=== PATIENT | female | born 1950 | race Caucasian/White ===

== ENCOUNTER → 2018-03-19 22:10 | Outpatient (CLI) | payer MEDICARE, SELFPAY ==
[2018-03-19 19:40] VITALS: BMI 24.7
[2018-03-19 22:50] LABS: Thyroid Stim Hormone (TSH) 1.57 uIU/mL (0.358-3.74)
--- OUTSIDE RECORDS SUMMARY | 2018-05-14 23:53 | XMS RPT_ITS ---
:1950 Author Organization [facility] Care Team Providers Name Role Phone ANDREW, CHELSEA Referring Unavailable LINNEAN, TAM (PT) Attending Unavailable ANDREW, CHELSEA Referring Unavailable LINNEAN, TAM (PT) Attending Unavailable ANDREW, CHELSEA Referring Unavailable LINNEAN, TAM (PT) Attending Unavailable ANDREW, CHELSEA Referring Unavailable LINNEAN, TAM (PT) Attending Unavailable ANDREW, CHELSEA Referring Unavailable LINNEAN, TAM (PT) Attending Unavailable ANDREW, CHELSEA Referring Unavailable LINNEAN, TAM (PT) Attending Unavailable ANDREW, CHELSEA Referring Unavailable LINNEAN, TAM (PT) Attending Unavailable ANDREW, CHELSEA Referring Unavailable LINNEAN, TAM (PT) Attending Unavailable ANDREW, CHELSEA Referring Unavailable LINNEAN, TAM (PT) Attending Unavailable ANDREW, CHELSEA Referring Unavailable LINNEAN, TAM (PT) Attending Unavailable ANDREW, CHELSEA Referring Unavailable LINNEAN, TAM (PT) Attending Unavailable ANDREW, CHELSEA Referring Unavailable LINNEAN, TAM (PT) Attending Unavailable ANDREW, CHELSEA Referring Unavailable ANDREW, CHELSEA Referring Unavailable ANDREW, CHELSEA Attending Unavailable LUNDBERG, DM L Referring Unavailable ANDREW, CHELSEA Referring Unavailable ANDREW, CHELSEA Attending Unavailable LUNDBERG, DM L Referring Unavailable ANDREW, CHELSEA Referring Unavailable Lundberg, Dm ASSOCIATE DATA SCIENTIST-C Attending Unavailable Lundberg, Dm ASSOCIATE DATA SCIENTIST-C Referring Unavailable PROBLEMS PROBLEMS DATE TYPE CONDITION / CODE ATTENDING STATUS SOURCE 03/20/2018 Unknown E03.9 - Lundberg, Active Sweetie Hypothyroidism, Dm ASSOCIATE DATA SCIENTIST-C Community unspecified / Hospital E03.9(ICD-10) Repository 02/17/2018 Active Elevated C-reactive NA Active [facility] protein (CRP) / [facility] [place] R79.82(ICD-10) Repository 10/21/2017 Active Abnormal results of NA Active [facility] liver function [facility] [place] studies / Repository R94.5(ICD-10) 09/17/2017 Active Unknown / LINNEAN, Active [facility] UNK(Unknown) TAM (PT) Other [place] Repository 09/09/2017 Active Pain in left NA Active [facility] shoulder / Other [place] M25.512(ICD-10) Repository 09/09/2017 Active Other chronic pain NA Active [facility] / G89.29(ICD-10) Other [place] Repository 12/08/2015 Active Vitamin D NA Active [facility] deficiency, [facility] [place] unspecified / Repository E55.9(ICD-10) 07/30/2017 Active Other specified NA Active [facility] abnormal findings [facility] [place] of blood chemistry Repository / R79.89(ICD-10) 07/30/2017 Active Anemia in other NA Active [facility] chronic diseases [facility] [place] classified Repository elsewhere / D63.8(ICD-10) 07/30/2017 Active Elevated NA Active [facility] erythrocyte [facility] [place] sedimentation rate Repository / R70.0(ICD-10) 07/30/2017 Active Encounter for NA Active [facility] screening for [facility] [place] respiratory Repository tuberculosis / Z11.1(ICD-10) PROCEDURES PROCEDURES No Procedure Records FoundRESULTS RESULTS THYROID STIM HORMONE Collected: 03/19/2018 Status: F Source: [facility] (TSH) 8:12 PM [facility] REPOSITORY TYPE CODE TESTS RESULT OUT OF RANGE REFERENCE UNITS LAB L501.9520 0.358-3.74 uIU/mL Normal TSH 1.57 Performed By: #### [id number] #### [facility] [address] [place], [address] OFFICE VISIT Observed: 03/19/2018 Status: F Source: [facility] 8:11 PM [facility] REPOSITORY [facility] [address] [place] [address] OFFICE VISIT Date of Service: 03/19/18 MR#: [id number] Acct: [id number] Name: ROSALBA ELIZABETH Rep #: [id number] : 1950 Provider: ANA ROSA Lundberg Age/Sex: 68/F Location: [facility] Status: Signed Intake Vital Signs03/19/18 Height 5 ft 6 in 03/19/18 Weight: 153 lb Intake Visit Reasons: RX REFILL Accompanied by: Self Is patient in pain?: No Allergies No Known Allergies Allergy (Unverified 03/19/18 19:41) Medications adalimumab 40 mg/0.8 mL subcutaneous pen kit 40 mg SC Q2W 03/19/18 [History Confirmed 03/19/18] ergocalciferol (vitamin D2) 50,000 unit capsule 50,000 unit PO .tidweek cap 03/19/18 [History Confirmed 03/19/18] folic acid 1 mg tablet 1 mg PO DAILY 03/19/18 [History Confirmed 03/19/18] ibuprofen 200 mg tablet 200 mg PO BID PRN tab 03/19/18 [History Confirmed 03/19/18] levothyroxine 112 mcg tablet 112 mcg PO DAILY 03/19/18 [History Confirmed 03/19/18] methotrexate sodium 2.5 mg tablet 2.5 mg PO .q1w tab 03/19/18 [History Confirmed 03/19/18] Is last menstrual period known: Yes Post menopausal: Yes Patient : No PFSH Medical History Fx wrist (Acute) Hypothyroid (Acute) Osteoarthritis (Acute) Rheumatoid arthritis (Acute) Social History Smoking Status: Never smoker HPI HPI (General) HPI HPI: ROSALBA ELIZABETH, is a 68 F who presents to the office today for refill medication. ROS Const Constitutional: No anorexia, body ache, chills, excessive sweating, fatigue, fever(s), frequent falls, headache(s), decreased energy, malaise, night sweats, snoring, weakness, weight change, sleep problems, abnormal sleep pattern, change in appetite or other Eyes Eyes: No blurry vision, change in vision, double vision, discharge, dry eyes, bulging eyes, floaters, visual disturbances, eye pain, light sensitivity, spots in vision, tunnel vision or other ENT ENT: No headache(s), abnormal hearing, ear pain, ear discharge, ear pressure, hearing loss, tinnitus, dizziness/vertigo, balance problems, nosebleed/epistaxis, nasal congestion, nasal obstruction, nose pain, sinus pressure, sinus pain, nasal discharge, post nasal drip, facial pain, dental pain, dry mouth, difficulty swallowing, bad breath, hoarseness, lip swelling, mouth lesions, mouth pain, neck pain, sore throat, tongue swelling, throat swelling or other Resp Respiratory: No snoring, cough, change in phlegm color, chest congestion, excessive phlegm production, hemoptysis, pain on inspiration, shortness of breath, pain with cough, stridor, wheezing or other Cardio Cardiology: No excessive sweating, chest pain at rest, chest pain with exertion, leg pain with exertion, shortness of breath, dyspnea on exertion, generalized swelling, irregular heart rhythm, lightheadedness, orthopnea, radiating jaw, neck or arm pain, fast heart rate, slow heart rate, palpitations or other Gastro GI: No other, No Difficulty Swallowing, No abdominal pain, No belching, No bloating, No change in bowel habits, No change in stool character, No coffee ground emesis, No constipation, No cramping, No diarrhea, No heartburn, No feeling full early, No excessive flatus, No incontinent of stools, No Vomiting blood/hematemesis, No Blood in stool, No loose stools, No Black,tarry stools, No nausea/dyspepsia, No pain with swallowing, No vomiting, No hemorrhoids, No rectal pain Genitourinary: No urinary frequency, difficulty urinating, burning urination, painful urination, urinary urgency or blood in urine Musc Musculoskeletal: No neck pain, abnormal walking, joint pain, back pain, deformity, joint swelling, limited range of motion, loss of height, muscle cramps, muscle weakness, decreased muscle mass, body aches, numbness, radiating pain into limb, stiffness, tingling or other Skin Skin: No acne, hair loss, change in hair, nail changes, boil, change in skin color, dry skin, redness, excessive hair growth, yellowing of the skin, lesions, itching, rash, skin pain, skin ulcer, sores, skin swelling, wounds or other Breast Breast: No other Neuro Neurology: No frequent falls, headache(s), weakness, visual disturbances, abnormal hearing, abnormal walking, numbness, tingling, abnormal movements, abnormal speech, behavioral changes, confusion, unsteady gait/balance, dizziness, lack of coordination, loss of vision, memory loss, restless legs, fainting, tremor(s) or other Psych Psychiatric: No abnormal sleep pattern, No change in appetite, No behavioral changes, No confusion, No memory loss, No lack of enjoyment, No anxiety, No depression, No difficulty concentrating, No hopelessness, No irritability, No mood swings, No panic attacks, No paranoia, No Thoughts of harming yourself/Others, No hallucinations, No other Endo Endo: No excessive sweating, No fatigue, No other Aller/Imm Allergy/Immunologic: No lip swelling, tongue swelling, throat swelling, wheezing or itchy eyes Exam Const Constitutional: Yes cooperative, Yes healthy appearing Orientation: Yes alert, awake and oriented x3 HENMT Head: Yes normocephalic Ear: Yes hearing grossly normal bilaterally Neck Neck: normal visual inspection Thyroid: thyroid normal Eyes General: Yes appearance normal, both eyes and all related structures Chest Chest palpation AND inspection: Yes normal inspection of the chest Resp Effort AND Inspection: No stridor Auscultation: Yes clear to auscultation bilaterally Cardio Palpitation: Yes normal PMI Rate: Yes regular rate Rhythm: Yes regular rhythm GI Inspection: Yes normal to inspection Auscultation: Yes normal bowel sounds Rectal Exam: No hemorrhoids Musc Cervical Spine: Yes cervical ROM normal Thoracic/Lumbar Spine: Yes thoracic and lumbar spine normal to inspection Skin General: no rashes or lesions noted Lesions: Yes no lesions Extrem General: Yes normal to inspection Neuro General: Yes alert and oriented x3 Motor: No weakness Psych Appearance: Positive grossly normal Mood: Positive congruent mood Affect: Positive normal affect Assessment AND Plan Problems 1. Hypothyroidism (acquired) E03.9 2. Rheumatoid arthritis involving multiple sites with positive rheumatoid factor M05.79 3. Rheumatoid arthritis flare M06.9 Patient Instructions Will call with the results of the labs drawn today and will fax to [facility] Orders Orders: Medications New: Discontinued: triamcinolone acetonide 0.1% Discontinued Reason: Pt no longer1 applic Topical DAILY taking Coding Level of Care Code Off vis,est,level 3 Diagnoses Hypothyroidism (acquired) E03.9 Rheumatoid arthritis involving multiple sites with positive rheumatoid factor M05.79 Rheumatoid arthritis location: multiple sites Rheumatoid factor presence: with rheumatoid factor Rheumatoid arthritis flare M06.9 03/19/182010 <Electronically signed by Dm VALENTINE> Date Dm Langstonson ASSOCIATE DATA SCIENTIST-C CC: CBC Collected: 02/17/2018 Status: F Source: [place] 2:37 PM [facility] REPOSITORY TYPE CODE TESTS RESULT OUT OF REFERENCE UNITS RANGE LAB WBC 3.70-11.00 k/uL WBC 6.69 LAB RBC 3.90-5.20 m/uL RBC 3.95 LAB HGB 11.5-15.5 g/dL Hemoglobin 13.0 LAB HCT 36.0-46.0 % Hematocrit 39.5 LAB MCV 80.0-100.0 fL MCV 100.0 LAB MCH 26.0-34.0 pG MCH 32.9 LAB MCHC 30.5-36.0 g/dL MCHC 32.9 LAB RDWCV 11.5-15.0 % RDW-CV 12.9 LAB PLTCT 150-400 k/uL Platelet Count 315 LAB MPV 9.0-12.7 fL MPV 9.7 LAB ABSNUC <0.01 k/uL Absolute nRBC <0.01 Performed By: #### WSR, CRP, VITD #### [facility] [address] [place] [address] COMP METABOLIC PANEL Collected: 02/17/2018 Status: F Source: [place] 2:37 [facility] REPOSITORY TYPE CODE TESTS RESULT OUT OF REFERENCE UNITS RANGE LAB TP 6.3-8.0 g/dL Protein, Total 7.3 LAB ALB 3.9-4.9 g/dL Albumin 4.2 LAB CA 8.6-10.0 mg/dL Calcium, Total 9.2 LAB TBIL 0.2-1.3 mg/dL Bilirubin, Total 0.3 LAB ALKP 34-123 U/L Alkaline Phosphatase 76 LAB AST 13-35 U/L AST 18 LAB GLU 74-99 mg/dL Glucose 87 Result Comment: The [place] Diabetes Association (ADA) provides guidance for cutoff values for fasting glucose and random glucose. The ADA defines fasting as no caloric intake for at least 8 hours. Fas ting plasma glucose results between 100 to 125 mg/dL indicate increased risk for diabetes (prediabetes). Fasting plasma glucose results greater than or equal to 126 mg/dL meet the criteria for diagnosis of diabetes. In the absence of unequivocal hyperglycemia, results should be confirmed by repeat testing. In a patient with classic symptoms of hyperglycemia or hyperglycemic crisis, random plasma glucose results greater than or equal to 200 mg/dL meet the criteria for diagnosis of diabetes. Reference: Standards of Medical Care in Diabetes 2016, [place] Diabetes Association. Diabetes Care. 2016.39(Suppl 1). LAB BUN 7-21 mg/dL BUN 15 LAB CRET 0.58-0.96 mg/dL Creatinine 0.76 LAB NA 136-144 mmol/L Sodium 140 LAB K 3.7-5.1 mmol/L Potassium 4.2 LAB CL 97-105 mmol/L Chloride 100 LAB CO2 22-30 mmol/L CO2 28 LAB AGAP 9-18 mmol/L Anion Gap 12 LAB ALT 7-38 U/L ALT 14 LAB GFRAA eGFR- Amer. >60 LAB GFRNAA . eGFR-All Other Races >60 Result Comment: eGFR (Estimated GFR) Units of measure: mL/min/1.73 meters squared eGFR is derived from the reexpressed MDRD Study equation using the following parameters: serum creatinine, age, gender and race. The creatinine assay has been calibrated to be traceable to IDMS. An eGFR <60 mL/min/1.73m2 for >3 months is consistent with chronic kidney disease. Refer to KDOQI guidelines for clinical interpretation. In patients with unstable renal function, e.g. those with acute kidney injury, the eGFR may not accurately reflect actual GFR. Performed By: #### WSR, CRP, VITD #### [facility] [employer] [address] [place] [address] SED RATE WESTERGREN Collected: 02/17/2018 Status: F Source: [place] 2:37 PM [facility] REPOSITORY TYPE CODE TESTS RESULT OUT OF REFERENCE UNITS RANGE LAB WSR 0-20 mm/hr Sed Rate Westergren 8 Performed By: #### WSR, CRP, VITD #### [facility] [employer] [address] [place] [id number] C-REACTIVE PROTEIN Collected: 02/17/2018 Status: F Source: [place] 2:37 PM [facility] REPOSITORY TYPE CODE TESTS RESULT OUT OF REFERENCE UNITS RANGE LAB CRP <0.9 mg/dL C-Reactive <0.1 Protein Performed By: #### WSR, CRP, VITD #### [facility] [employer] [address] [place], [place] [address] VITAMIN D 25 HYDROXY Collected: 02/17/2018 Status: F Source: [place] 2:37 PM [facility] REPOSITORY TYPE CODE TESTS RESULT OUT OF REFERENCE UNITS RANGE LAB VITD 31.0-80.0 ng/mL Vitamin D 25 46.3 Hydroxy Result Comment: Classification of 25 [place] Vitamin D status: Insufficiency/Moderate Deficiency: < or = 30 ng/mL Sufficiency/Optimal Levels: 31 to 80 ng/mL Toxicity: > 100 ng/mL Test performed by chemiluminescent immunoassay. Performed By: #### WSR, CRP, VITD #### [facility] [employer] [address] [place], [place] [address] PROGRESS Observed: 02/17/2018 Status: COMPLETED Source: [place] 1:30 PM [facility] REPOSITORY HNO ID: [id number] Author: Chelsea Morales Service: (none) Author Type: Physician Type: Progress Notes Filed: 02/17/2018 2:27 PM Note Text: CC:psoriasiatic arthritis/joint pain/low vitamin D Today's visit 02/17/18:L upper arm soreness. Face broke out in redness/irritation after using cetaphil soap and cream 1month ago. Now with R nasal skin irritation, R eye weepy, irritated. Has not missed rheum meds. [facility]. No steroids since last office visit. R great toenail dystrophic unimproved with vicks rub, was on multiple fungal meds. Reports pain /10. Minimal AM stiffness. Already had flu vaccine. Due for prevnar 13 next month. Overall mildly uncomfortable but happy with rheum care. No falls/fx/trauma/illness/oral sores/rash/hairloss/jaw pain/dysphagia/epistaxis/hemoptysis since last visit. No adverse effects with meds. No other complaints. Patient denies fever, chills, cp, dyspnea, nausea, vomiting, night sweats, scalp tenderness, visual changes, barrera, bowel/bladder changes, weight changes or other complaints. Last visit supportive care, start prednisone marko, consult PT, no response with otezla/too costly, f/u ENT, f/u with derm care, improved methotrexate 9-10tabs once a week (may increase if labs stable), daily folic acid, improved with humira 40mg sq injection once every other week, increase water intake, take vit D 4000 International Units daily with food, f/u with derm, prn heat/ice/otc arthritis creams, low impact weightbearing exercise, follow up with dentist for dental care 09/09/17:Patient report flare of scalp. had bronchitis 05/2017 treated with augmentin. Another cold 1month afterwards. Croupy cough and family with same illness. Mother on mother's day. L shoulder pain lately. Worse when trying to reach out for object with LUE. Reports pain 9/10. Minimal AM stiffness. Back on rheum meds. Neck pain better since last office visit, but occasionally bothers her. Overall uncomfortable but happy with rheum care. Seeing dentist, worse dental health since on methotrexate per patient. Will lose tooth on bottom and may need an implant. No falls/fx/trauma/illness/oral sores/rash/hairloss/jaw pain/dysphagia/epistaxis/hemoptysis since last visit. No adverse effects with meds. No other complaints. Patient denies fever, chills, cp, dyspnea, nausea, vomiting, night sweats, scalp tenderness, visual changes, barrera, bowel/bladder changes, weight changes or other complaints. Last visit supportive care, no response with otezla/too costly, f/u ENT, f/u with derm care, improved methotrexate 8tabs once a week (may increase if labs stable), daily folic acid, improved with humira 40mg sq injection once every other week, increase water intake, take vit D 4000 International Units daily with food, f/u with derm, prn heat/ice/otc arthritis creams, low impact weightbearing exercise, 11/11/16;reports psoriasis on back of scalp. None elsewhere. Started humira 06/2016. Up to 8tabs once a week methotrexate. No more fungal infection. Joint pain in knees just like mother. Pain 9/10. Minimal AM stiffness. Likes to Nextt, but not yet this year. overall mildly uncomfortable but happy with rheum care. No falls/fx/trauma/illness/oral sores/rash/hairloss/jaw pain/dysphagia/epistaxis/hemoptysis since last visit. No adverse effects with meds. No other complaints. Patient denies fever, chills, cp, dyspnea, nausea, vomiting, night sweats, scalp tenderness, visual changes, barrera, bowel/bladder changes, weight changes or other complaints. Last visit supportive care, no response with otezla/too costly, f/u ENT, f/u with derm care, restart methotrexate 4-8tabs once a week, start daily folic acid, increase water intake, take vit D 4000 International Units daily with food, start biologics if approved, prn heat/ice/otc arthritis creams, low impact weightbearing exercise 07/01/16:reports left side of neck, right knee, right hand/middle finger, 07/29. Moderate AM stiffness. Fungal infection resolved with oral antifungal 02/2016. Did fine with otezla sample marko, too costly. Improved elbow psoriasis. Still has psoriasis on scalp, eyebrows, face. Did well with methotrexate in past but had more joint pain all over since off methotrexate. Does enjoy occasional alcoholic drinks. Declined tablet survey. Overall uncomfortable but happy with rheum care. No falls/fx/trauma/illness/oral sores/rash/hairloss/jaw pain/dysphagia/epistaxis/hemoptysis since last visit. No adverse effects with meds. No other complaints. Patient denies fever, chills, cp, dyspnea, nausea, vomiting, night sweats, scalp tenderness, visual changes, barrera, bowel/bladder changes, weight changes or other complaints. Last visit supportive care, start otezla, f/u ENT, complete fungal treatment and topicals per derm care, when infection free and labs stable may restart methotrexate/folic acid, increase water intake, take vit D 4000 International Units daily with food, may consider other dmards/biologics, prn heat/ice/otc arthritis creams, low impact weightbearing exercise 02/02/16:was off rheum meds for fungal infection. Not on rheum meds since fungal infection on trunk still present. Using topicals, may try oral antifungal in future. reports left side-neck 09/28 x 6 weeks, constant. Minimal AM stiffness. Psoriasis greatly flared on scalp. Taking heat/ibuprofen not helping. More shoulder pain. Had not problems taking 6tabs once a week of methotrexate in the past. Overall doing ok and happy with care. No falls/fx/trauma/illness/oral sores/rash/hairloss/jaw pain/dysphagia/epistaxis/hemoptysis since last visit. No adverse effects with meds. No other complaints. Patient denies fever, chills, cp, dyspnea, nausea, vomiting, night sweats, scalp tenderness, visual changes, barrera, bowel/bladder changes, weight changes or other complaints. Last visit supportive care, consult ENT, complete fungal treatment and topicals per derm care, when infection free and labs stable may restart methotrexate/folic acid, increase water intake, complete vit D script, may consider other dmards/biologics, prn heat/ice/otc arthritis creams, low impact weightbearing exercise See notes 09/09/17-12/08/15 for details on prior visits humira 06/2016-present Methotrexate 10/2015-present 12/08/15:started methotrexate 5tabs once a week. less itchy scalp. Reports c/o earache, pressure in left ear X 3 weeks. C/o stiff neck to left side Itching to scalp. Was on zpak for L earache without response. Pain deep behind L ear. No change with warm compresses. Fungal rash below breasts the same. Due to see Derm soon. Drinking some water. Psoriasis stable. Same joint pain. Pain 1-2/10. Minimal Am stiffness. Overall doing ok and happy with care. No falls/fx/trauma/illness/oral sores/rash/hairloss/jaw pain/dysphagia/epistaxis/hemoptysis since last visit. No adverse effects with meds. No other complaints. Patient denies fever, chills, cp, dyspnea, nausea, vomiting, night sweats, scalp tenderness, visual changes, barrera, bowel/bladder changes, weight changes or other complaints. Last visit supportive care, complete fungal treatment and topicals per derm care, when infection free and labs stable may start methotrexate/folic acid, may consider other dmards/biologics, prn heat/ice/otc arthritis creams, low impact weightbearing exercise, 11/01/15 HPI: here for psoriasis eval 19y/o started psoriasis on ankled, then traveled to tibial areas, elbows A few years quiet Psoriasis worse on scalp since 2001, after divorce 51y/o found to have thyroid disease, now on med bilateral shoulders when mobile 08/04 for 1year 09/19/15 note Shant Patel MD note: scalp psoriasis, R breast candidiasis;refer to rheum for eval of arthritsi and biological med. RHEUM. ROS: Joint pain: yes- shoulders, knees, muscle spasms, neck Joint swelling: hands swelling when high sodium Am stiffness: yes 1.5hr H/o precedent/frequent infection(s): topical antifungal Skin thickening, psoriasis, photosensitivity, purpura: psoriasis as above Nail changes:great toenail dystrophic Eye inflammation: glasses Oral/nasal/genital ulcers: canker sore with diet changes GI problems-diarrhea/bleeding/IBD/Gluten intolerence/Dysphagia: gerd Fatigue: yes, sleeps 7=8hr/night, yes snoring, KATARINA no machine PMR/GCA ROS: negative Other ROS:The remainder of the review of systems is negative. PMH/surgery hx/social hx/fmh/ALLERGIES:unchanged from last visit;ALLERGIES:nkda PMH:thyroid disease, KATARINA no machine, gerd, fell skating R wrist fracture [facility] 2003 ;Miscarriages: No Mammogram/Breast exam: NL Pap smear: NL;last menses 52y/o;not on ocps/hormones Colonoscopy: no Bone Density:no History of Fractures:fell skating R wrist fracture [facility] 2003 Height Loss: lost 2 Last PPD: +PPD from traveling/[place] treated for 9months in 1971;11/01/15 AND 07/01/16 negative quantiferon tb PSH:none MEDS:reviewed medlist 02/17/18 Calcium no Vitamin D:4000 International Units daily with food job home health nurse Smoking <1/2ppd [id number];quit 1979 etoh wine once-twice a week Industrial toxic exposures:no FAMILY HISTORY:mother-psoriasis, arthritis;father-on prednisone for lung issues;sisters=healthy;niece psoriasis;daughter-psoriasis; Patient reports no known FH of Gout or Pseudogout, , Psoriatic Arthritis, IBD, RA, Lupus, Myositis, Osteoporosis, MS, Cancer, Kidney Stones, TB infection exposed or Vasculitis TESTS:10/21/17 normal cbc, esr 9, crp 0.1, vitamin D 55.6;pending cmp; 5/22/18 L shoulder xrays-There is mild to moderate narrowing acromioclavicular joint with hypertrophic changes. ?Minimal narrowing of the glenohumeral joint with inferior osteophytes. ?Subacromial space is normal. 07/30/17 low vitamin D 17.1;NL cbc, cmp, esr 7, crp 0.1;03/24/17 NL cbc, cmp, esr 8, crp 0.1; 11/11/16 NL cbc, cmp, esr 8 (10), crp<0.1 (0.2);07/01/16 NL cbc, cmp, esr 10 (14),, crp 0.2 (0.1);negative quantiferon tb; 02/02/16 cervical spine xrays-Moderate degenerative disc disease at C4-5, C5-6 and C6-7 with disc height narrowing and uncovertebral hypertrophic changes. Moderate to marked narrowing of the left C5-6 neural foramen and right C3-4, C4-5 and C5-6 neural foramina. Moderate narrowing of the right C6-7 neural foramen as well 12/08/15 NL cbc, cmp;11/01/15 normal shoulder xrays 11/01/15 +hla b27;low vit D 22.4;NL cbc, cmp, crp 0.1, esr 14;negative rf<10, ccp<15, heather ifa, quantiferon tb, hepatitis panel except +hepBsurface AB These results are consistent with previous exposure and/or immunity to the hepatitis B virus antigen. 11/01/15 knee xrays-Right knee: There is no acute fracture. There is mild patellofemoral compartment narrowing. Tiny tricompartmental marginal osteophytes. Left knee: There is mild medial compartment narrowing with marginal osteophyte formation. Lateral and patellofemoral compartments are preserved. 11/01/15 cxr-multilevel djd in thoracic spine 11/01/15 hand xrays-There is advanced first CMC joint degenerative change bilaterally. Moderate triscaphe joint space narrowing on the right from degenerative change. There is degenerative change at scattered DIP joints greatest involving the right long finger DIP joint. Additional pertinent test results reviewed in medical chart PHYSICAL EXAM reviewed vitals BP 106/64 Pulse 63 Wt 145 lb (65.8kg) General Appearance: WD/WN, NAD. Appropriate grooming. Very pleasant. Ambulates fair without assistance or assistive devices SKIN:No rash, yes decreased white/scaly/psoriasis on back of scalp, hyperpigmentation/irrited R upper nose, dystrophic R great toenail, no purpura, no ulcers, no skin thickening/tightness, no telangiectasias. HEENT: No patchy alopecia, normal temporal artery pulsations, non-tender, scalp non-tender, no conjunctival injection or icterus, no oral ulcers, no thrush, normal nasal mucosano sinus tenderness,normal TM's L side no fluid/redness/bulging/minimal wax. Yes glasses, fair dentition NECK: neck supple w/o masses, no thyromegaly, no LAD. LUNGS: CTA, Good respiratory effort. HEART: RRR, - m/r/g ABDOMEN: soft, non-tender, no HSM/masses/bruits. EXTREMITIES: Adequate pulses b/l UE; No clubbing,discoloration,sclerodactyly, periungual erythema, digital ulcers, nail pitting, edema, varicosities. MUSCULOSK: No joint deformities, no rheumatoid nodules, calcifications or tophi. No SI tenderness, no darrius's tenderness, no heel/plantar tenderness, lumbar flexion full, negative Verónica's test. Swoll JTS:squaring of cmcs Tend. JTS:improved neck, CMCs, hands, L>R shoulders, knees;fair range of motion; no warmth/erythema No clinical synovitis in the DIP's, PIP's, MCP's, wrists, elbows, shoulders, knees, ankles, midfoot, or toes. no knee effusions bilateral. Shoulder exam:see above Hip rom without pain LIMITATION of Motion of Joints: yes Thoracic/Lumbar Spine: No percussion tenderness SLR:negative No instability in any upper or lower extremity joints. NEURO: Mental Status: alert and oriented x 3, anxious, CN II - XII grossly intact Motor: 5/5 proximally and distally b/l Sensory: intact to fine touch TENDER POINTS: 0/18 Gait: Normal w/o assistive devices Toe and heel walk normal. 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, M25.562, G89.29 Chronic pain of both knees M54.2 Cervicalgia M79.622 Pain of left upper arm M25.60 Joint stiffness of multiple sites R23.9 Skin change L60.8 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 (mother-psoriasis, arthritis;)with PMH:thyroid disease, KATARINA no machine, gerd, fell skating R wrist fracture [facility] 2003 presents with 19y/o started psoriasis on ankled, then traveled to tibial areas, elbows, A few years quiet, then Psoriasis worsen on scalp since 2001, after divorce, 51y/o found to have thyroid disease, gained weight, developed yeast infection, now has polyarticular joint pain in bilateral shoulders/knees/hands x1year, minimal Am stiffness, +hla b27;low vit D 22.4, has findings consistent with secondary osteoarthritis, polyarticular psoriatic arthritis, low vit D, here with mild polyarthralgias, flare of psoriasis on scalp, L upper arm pain recently, R upper nose skin irritated/hyperpigmented, irritated R eye after full facial redness/irritation s/p cetaphil soap/cream 1month ago= supportive care, may try antihistamine, follow up with derm, for flares take prednisone marko, continue PT exercises, no response with otezla/too costly, f/u ENT, improved methotrexate 9-10tabs once a week, daily folic acid, improved with humira 40mg sq injection once every other week, increase water intake, take vit D 4000 International Units daily with food, start prn heat/ice/ over the counter arthritis creams, low impact weightbearing exercise, follow up with dentist for dental care, answered all questions and concerns-patient voiced understanding. RECOMMENDATION/PLAN: Office Visit on 02/17/18 -DXA-AXIAL SKELETON -COMP METABOLIC PANEL -CBC -SED RATE WESTERGREN -C-REACTIVE PROTEIN (CRP) -VITAMIN D 25 HYDROXY -ergocalciferol, vitamin D2, (VITAMIN D2 ORAL) -methotrexate 2.5 mg tablet Reviewed labs/tests with patient Provided printed info on osteoarthritis, reprinted psoriatic arthritis info 07/01/16 02/17/18 check cmp, cbc, esr, crp today and in 3months, in future check quantiferon tb 07/01/16 precert humira 02/17/18 JESICA 0, pain 50%;09/09/17 JESICA 0, pain 90%;11/11/16 JESICA 0, pain 90%;07/01/16 JESICA 0, pain 40%;02/02/16 JESICA 0, pain 60%;12/08/15 JESICA 0, pain 10-20%;11/01/15 JESICA 0, pain 40%; May apply over the counter arthritis cream (biofreeze, icy hot, asper cream, tiger balm, capsacin, etc.) to painful joints up to four times a day. Avoid contact with eyes. May take ES acetaminophen 500mg every 4-6hours for joint pain. Do not exceed 3000mg /day. Decrease stress Improve sleep May apply heat/ice 20minutes on and off to areas of pain Avoid aggravating triggers Calcium 1000-1200mg daily with food in DIVIDED doses take Vitamin D 4000 International Units daily with food Recommend goal: exercising 30minutes 3 times a week Recommend weight-bearing aerobic exercises such as walking, dancing, low impact aerobics, elliptical machine, stair climbing, gardening flexibility exercises and strength training exercises Recommend avoiding high impact exercises such as jumping, running or jogging or movements where you bend forward and twist the waist, for instance- touching your toes, sit-ups, 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 see spine clinic and physical therapy Additional time spent with patient on healthy lifestyle, healthy food and anti-inflammatory diet (with emphasis on whole plant based diet), avoiding refined carbs/sugars and processed food, appropriate exercise (stretching, cardio and strengthening), good sleep hygiene, stress mgt, and supplementing vital deficiencies and maintaining healthy wt and BMI. Additional information provided with references and educational information. Bone Health Recommendations: -Bone Density is recommended after menopause and after age 55-60, sooner if patient has risk factors, sooner if on systemic steroid use of 3 months or more. -Vitamin D supplementation recommended, optimal dose is the dose necessary to achieve Vitamin D 25-OH blood level in range of 40-60 ng/mL. (Vitamin D supplement in international units, is the dose necessary to achieve a Vitamin D 25-OH blood level in range of 40-60 ng/mL). -Recommended daily dose of calcium: 1200mg total a day in divided doses. Calcium from dietary sources, if not sufficient, or if with h/o calcium nephrolithiasis would recommend Calcium Citrate supplement, as it is recommended to avoid caclium carbonate products, which as main dietary calcium source. The after visit summary has information on dietary calcium and instructions on reading calcium label and converting the %DV to mg. -Regular weight-bearing and muscle-strengthening exercise -Avoidance of tobacco smoking, excessive alcohol intake and excessive caffeine intake. -Fall and fracture precautions -Continued regular dental follow up visits and good dental/gum care Stressed the importance of following up with PCP and specialists for his/her chronic diseases, health, CV, and cancer screening and continued care. Will follow disease activity/progression and adjust therapeutic regimen to disease activity and severity. Discussed medication dosage, usage, goals of therapy, and side effects. Available test results were reviewed An additional 20 minutes were spent outside of the patient visit to review records. Additional time spent with the patient to discuss their questions. Additional time spent with the patient devoted to discussing treatment strategy, planning, and implementation. Discussed findings, impression and plan with patient. Patient understands above plan; questions asked and answered. Patient agrees to plan as noted above. Total time spent on this visit, with more than 50% of time spent in face to face with patient, in consultation, and in addition to Counseling and Coordination of Care:1:18-38PM spent more than 50% of the [id number] time in counseling, explanation of diagnosis, and planning of further management Follow up: 5-6months, earlier if needed Recommendations to share with referring physician/Primary care physician : Dear Dr. Bran and Dm Lundberg NP : I had the pleasure of seeing your patient, . I have enclosed a copy of my clinic note with my assessment and recommendations for this patient. Recommendations for your consideration as you deem necessary: -Continuous follow up with Primary care physician for cardiovascular disease prevention, for age appropriate cancer screening and routine health maintenance and wellness, and infection precautions and age appropriate immunization recommended. Thank you for allowing me to participate in the care of your patient. Chelsea Morales MD I will relay my findings and recommendations to the physician requesting the consult by letter/electronic shared medical records. cc Amanda Bran MD;Dm Lundberg NP [phone] [id number] PROMIS? (Patient-Reported Outcomes Measurement Information System) is a set of person-centered measures that evaluates and monitors physical, social, and emotional health. It can be used with the general population and with individuals living with chronic conditions. February 17, 2018 PROMIS 10: PHYSICAL AND MENTAL HEALTH: Global Physical Health T Score: 54.1 Global Physical Health Percentile: 65.91 Global Mental Health T Score: 59 Global Mental Health Percentile: 81.59 PROMIS PAIN, FATIGUE, FUNCTIONAL STATUS: PROMIS Pain Interference T Score: 48.54 PROMIS Pain Interference Percentile: 55.96 PROMIS Fatigue T Score: 32.62 PROMIS Fatigue Percentile: 95.91 PROMIS Functional Status T Score: 53.97 PROMIS Functional Status Percentile: 65.54 RAPID 3: DISEASE ACTIVITY: Weighed Score Levels: 0 - 1: Near Remission 1.3 - 2.0: Low Severity 2.3 - 4.0: Moderate Severity 4.3 - 10.0: High Severity SCORES: RAPID 3 Functional Status Subscore: 0 RAPID 3 Pain Tolerance Subscore: 1 RAPID 3 Global Estimate Subscore: 1 RAPID 3 Cumulative Score: 2 RAPID 3 Weighed Score: 0.7 REVIEW OF SYSTEMS: February 17, 2018 CONSTITUTIONAL: Fever: No Fatigue: No Pain: Yes EYES: Pain: Yes Redness: Yes Loss of vision: No Dryness: No EAR, NOSE, MOUTH, THROAT: Nose bleeds: No Hearing loss: No Sores in mouth: No Swallowing problems: No Dry mouth: No CARDIOVASCULAR: Chest pain: No Swelling in the feet or legs: No RESPIRATORY: Shortness of breath: No Pain with breathing: No Chronic cough: No Coughing up blood: No , GASTROINTESTINAL: Heartburn: No Nausea: No Diarrhea: No Blood in the stool or black stool: No Abdominal pain: No GENITOURINARY: Blood in urine: No Pain or burning on urination: No] MUSCULOSKELETAL: Joint pain: Yes Joint swelling: No Morning stiffness in joints: Yes Muscle weakness: No Back pain: No SKIN: Rashes: No Sun sensitive rashes: No Color changes of hands or feet in the cold: No Hair loss: No Nail changes: No NEUROLOGICAL: Headaches: No Dizziness: No Numbness or tingling: No Memory loss: No Seizures: No HEMATOLOGIC/LYMPHATIC: Swollen glands: No Anemia: Yes ALLERGIES/IMMUNOLOGIC: Allergies (other than medications): Yes Increased susceptibility to infection: Yes KNOWN MEDICAL CONDITIONS: Diabetes: No Thyroid disease: Yes High blood pressure: No CNOV Observed: 02/17/2018 Status: COMPLETED Source: [place] 1:10 PM [facility] REPOSITORY Office Visit (ASIF) ROSALBA ELIZABETH ([id number]) 1950 F Date Time Provider Department 02/17/18 1:10 PM CHELSEA MORALES During your visit today, we recorded the following information about you: Pulse Blood pressure Weight 63/minute 106/64 65.8 kg Chelsea Morales MD 02/17/2018 2:27 PM Signed CC:psoriasiatic arthritis/joint pain/low vitamin D Today's visit 02/17/18:L upper arm soreness. Face broke out in redness/irritation after using cetaphil soap and cream 1month ago. Now with R nasal skin irritation, R eye weepy, irritated. Has not missed rheum meds. Needs humira patient assistance. No steroids since last office visit. R great toenail dystrophic unimproved with vicks rub, was on multiple fungal meds. Reports pain 5/10. Minimal AM stiffness. Already had flu vaccine. Due for prevnar 13 next month. Overall mildly uncomfortable but happy with rheum care. No falls/fx/trauma/illness/oral sores/rash/hairloss/jaw pain/dysphagia/epistaxis/hemoptysis since last visit. No adverse effects with meds. No other complaints. Patient denies fever, chills, cp, dyspnea, nausea, vomiting, night sweats, scalp tenderness, visual changes, barrera, bowel/bladder changes, weight changes or other complaints. Last visit supportive care, start prednisone amrko, consult PT, no response with otezla/too costly, f/u ENT, f/u with derm care, improved methotrexate 9-10tabs once a week (may increase if labs stable), daily folic acid, improved with humira 40mg sq injection once every other week, increase water intake, take vit D 4000 International Units daily with food, f/u with derm, prn heat/ice/otc arthritis creams, low impact weightbearing exercise, follow up with dentist for dental care 09/09/17:Patient report flare of scalp. had bronchitis 05/2017 treated with augmentin. Another cold 1month afterwards. Croupy cough and family with same illness. Mother on mother's day. L shoulder pain lately. Worse when trying to reach out for object with LUE. Reports pain 9/10. Minimal AM stiffness. Back on rheum meds. Neck pain better since last office visit, but occasionally bothers her. Overall uncomfortable but happy with rheum care. Seeing dentist, worse dental health since on methotrexate per patient. Will lose tooth on bottom and may need an implant. No falls/fx/trauma/illness/oral sores/rash/hairloss/jaw pain/dysphagia/epistaxis/hemoptysis since last visit. No adverse effects with meds. No other complaints. Patient denies fever, chills, cp, dyspnea, nausea, vomiting, night sweats, scalp tenderness, visual changes, barrera, bowel/bladder changes, weight changes or other complaints. Last visit supportive care, no response with otezla/too costly, f/u ENT, f/u with derm care, improved methotrexate 8tabs once a week (may increase if labs stable), daily folic acid, improved with humira 40mg sq injection once every other week, increase water intake, take vit D 4000 International Units daily with food, f/u with derm, prn heat/ice/otc arthritis creams, low impact weightbearing exercise, 11/11/16;reports psoriasis on back of scalp. None elsewhere. Started humira 06/2016. Up to 8tabs once a week methotrexate. No more fungal infection. Joint pain in knees just like mother. Pain 12/29. Minimal AM stiffness. Likes to kayak, but not yet this year. overall mildly uncomfortable but happy with rheum care. No falls/fx/trauma/illness/oral sores/rash/hairloss/jaw pain/dysphagia/epistaxis/hemoptysis since last visit. No adverse effects with meds. No other complaints. Patient denies fever, chills, cp, dyspnea, nausea, vomiting, night sweats, scalp tenderness, visual changes, barrera, bowel/bladder changes, weight changes or other complaints. Last visit supportive care, no response with otezla/too costly, f/u ENT, f/u with derm care, restart methotrexate 4-8tabs once a week, start daily folic acid, increase water intake, take vit D 4000 International Units daily with food, start biologics if approved, prn heat/ice/otc arthritis creams, low impact weightbearing exercise 07/01/16:reports left side of neck, right knee, right hand/middle finger, /10. Moderate AM stiffness. Fungal infection resolved with oral antifungal 02/2016. Did fine with otezla sample marko, too costly. Improved elbow psoriasis. Still has psoriasis on scalp, eyebrows, face. Did well with methotrexate in past but had more joint pain all over since off methotrexate. Does enjoy occasional alcoholic drinks. Declined tablet survey. Overall uncomfortable but happy with rheum care. No falls/fx/trauma/illness/oral sores/rash/hairloss/jaw pain/dysphagia/epistaxis/hemoptysis since last visit. No adverse effects with meds. No other complaints. Patient denies fever, chills, cp, dyspnea, nausea, vomiting, night sweats, scalp tenderness, visual changes, barrera, bowel/bladder changes, weight changes or other complaints. Last visit supportive care, start otezla, f/u ENT, complete fungal treatment and topicals per derm care, when infection free and labs stable may restart methotrexate/folic acid, increase water intake, take vit D 4000 International Units daily with food, may consider other dmards/biologics, prn heat/ice/otc arthritis creams, low impact weightbearing exercise 02/02/16:was off rheum meds for fungal infection. Not on rheum meds since fungal infection on trunk still present. Using topicals, may try oral antifungal in future. reports left side-neck 6/10 x 6 weeks, constant. Minimal AM stiffness. Psoriasis greatly flared on scalp. Taking heat/ibuprofen not helping. More shoulder pain. Had not problems taking 6tabs once a week of methotrexate in the past. Overall doing ok and happy with care. No falls/fx/trauma/illness/oral sores/rash/hairloss/jaw pain/dysphagia/epistaxis/hemoptysis since last visit. No adverse effects with meds. No other complaints. Patient denies fever, chills, cp, dyspnea, nausea, vomiting, night sweats, scalp tenderness, visual changes, barrera, bowel/bladder changes, weight changes or other complaints. Last visit supportive care, consult ENT, complete fungal treatment and topicals per derm care, when infection free and labs stable may restart methotrexate/folic acid, increase water intake, complete vit D script, may consider other dmards/biologics, prn heat/ice/otc arthritis creams, low impact weightbearing exercise See notes 09/09/17-12/08/15 for details on prior visits humira 06/2016-present Methotrexate 10/2015-present 12/08/15:started methotrexate 5tabs once a week. less itchy scalp. Reports c/o earache, pressure in left ear X 3 weeks. C/o stiff neck to left side Itching to scalp. Was on zpak for L earache without response. Pain deep behind L ear. No change with warm compresses. Fungal rash below breasts the same. Due to see Derm soon. Drinking some water. Psoriasis stable. Same joint pain. Pain 1-2/10. Minimal Am stiffness. Overall doing ok and happy with care. No falls/fx/trauma/illness/oral sores/rash/hairloss/jaw pain/dysphagia/epistaxis/hemoptysis since last visit. No adverse effects with meds. No other complaints. Patient denies fever, chills, cp, dyspnea, nausea, vomiting, night sweats, scalp tenderness, visual changes, barrera, bowel/bladder changes, weight changes or other complaints. Last visit supportive care, complete fungal treatment and topicals per derm care, when infection free and labs stable may start methotrexate/folic acid, may consider other dmards/biologics, prn heat/ice/otc arthritis creams, low impact weightbearing exercise, 11/01/15 HPI: here for psoriasis eval 19y/o started psoriasis on ankled, then traveled to tibial areas, elbows A few years quiet Psoriasis worse on scalp since 2001, after divorce 51y/o found to have thyroid disease, now on med bilateral shoulders when mobile 08/04 for 1year 09/19/15 note Shant Patel MD note: scalp psoriasis, R breast candidiasis;refer to rheum for eval of arthritsi and biological med. RHEUM. ROS: Joint pain: yes- shoulders, knees, muscle spasms, neck Joint swelling: hands swelling when high sodium Am stiffness: yes 1.5hr H/o precedent/frequent infection(s): topical antifungal Skin thickening, psoriasis, photosensitivity, purpura: psoriasis as above Nail changes:great toenail dystrophic Eye inflammation: glasses Oral/nasal/genital ulcers: canker sore with diet changes GI problems-diarrhea/bleeding/IBD/Gluten intolerence/Dysphagia: gerd Fatigue: yes, sleeps 7=8hr/night, yes snoring, KATARINA no machine PMR/GCA ROS: negative Other ROS:The remainder of the review of systems is negative. PMH/surgery hx/social hx/fmh/ALLERGIES:unchanged from last visit;ALLERGIES:nkda PMH:thyroid disease, KATARINA no machine, gerd, fell skating R wrist fracture [facility] 2003 ;Miscarriages: No Mammogram/Breast exam: NL Pap smear: NL;last menses 52y/o;not on ocps/hormones Colonoscopy: no Bone Density:no History of Fractures:fell skating R wrist fracture [facility] 2003 Height Loss: lost 2 Last PPD: +PPD from traveling/[place] treated for 9months in 1971;11/01/15 AND 07/01/16 negative quantiferon tb PSH:none MEDS:reviewed medlist 02/17/18 Calcium no Vitamin D:4000 International Units daily 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 ?Minimal narrowing of the glenohumeral joint with inferior osteophytes. ?Subacromial space is normal. 07/30/17 low vitamin D 17.1;NL cbc, cmp, esr 7, crp 0.1;03/24/17 NL cbc, cmp, esr 8, crp 0.1; 11/11/16 NL cbc, cmp, esr 8 (10), crp<0.1 (0.2);07/01/16 NL cbc, cmp, esr 10 (14),, crp 0.2 (0.1);negative quantiferon tb; 02/02/16 cervical spine xrays-Moderate degenerative disc disease at C4-5, C5-6 and C6-7 with disc height narrowing and uncovertebral hypertrophic changes. Moderate to marked narrowing of the left C5-6 neural foramen and right C3-4, C4-5 and C5-6 neural foramina. Moderate narrowing of the right C6-7 neural foramen as well 12/08/15 NL cbc, cmp;11/01/15 normal shoulder xrays 11/01/15 +hla b27;low vit D 22.4;NL cbc, cmp, crp 0.1, esr 14;negative rf<10, ccp<15, heather ifa, quantiferon tb, hepatitis panel except +hepBsurface AB These results are consistent with previous exposure and/or immunity to the hepatitis B virus antigen. 11/01/15 knee xrays-Right knee: There is no acute fracture. There is mild patellofemoral compartment narrowing. Tiny tricompartmental marginal osteophytes. Left knee: There is mild medial compartment narrowing with marginal osteophyte formation. Lateral and patellofemoral compartments are preserved. 11/01/15 cxr-multilevel djd in thoracic spine 11/01/15 hand xrays-There is advanced first CMC joint degenerative change bilaterally. Moderate triscaphe joint space narrowing on the right from degenerative change. There is degenerative change at scattered DIP joints greatest involving the right long finger DIP joint. Additional pertinent test results reviewed in medical chart PHYSICAL EXAM reviewed vitals BP 106/64 Pulse 63 Wt 145 lb (65.8kg) General Appearance: WD/WN, NAD. Appropriate grooming. Very pleasant. Ambulates fair without assistance or assistive devices SKIN:No rash, yes decreased white/scaly/psoriasis on back of scalp, hyperpigmentation/irrited R upper nose, dystrophic R great toenail, no purpura, no ulcers, no skin thickening/tightness, no telangiectasias. HEENT: No patchy alopecia, normal temporal artery pulsations, non-tender, scalp non-tender, no conjunctival injection or icterus, no oral ulcers, no thrush, normal nasal mucosano sinus tenderness,normal TM's L side no fluid/redness/bulging/minimal wax. Yes glasses, fair dentition NECK: neck supple w/o masses, no thyromegaly, no LAD. LUNGS: CTA, Good respiratory effort. HEART: RRR, - m/r/g ABDOMEN: soft, non-tender, no HSM/masses/bruits. EXTREMITIES: Adequate pulses b/l UE; No clubbing,discoloration,sclerodactyly, periungual erythema, digital ulcers, nail pitting, edema, varicosities. MUSCULOSK: No joint deformities, no rheumatoid nodules, calcifications or tophi. No SI tenderness, no darrius's tenderness, no heel/plantar tenderness, lumbar flexion full, negative Verónica's test. Swoll JTS:squaring of cmcs Tend. JTS:improved neck, CMCs, hands, L>R shoulders, knees;fair range of motion; no warmth/erythema No clinical synovitis in the DIP's, PIP's, MCP's, wrists, elbows, shoulders, knees, ankles, midfoot, or toes. no knee effusions bilateral. Shoulder exam:see above Hip rom without pain LIMITATION of Motion of Joints: yes Thoracic/Lumbar Spine: No percussion tenderness SLR:negative No instability in any upper or lower extremity joints. NEURO: Mental Status: alert and oriented x 3, anxious, CN II - XII grossly intact Motor: 5/5 proximally and distally b/l Sensory: intact to fine touch TENDER POINTS: 0/18 Gait: Normal w/o assistive devices Toe and heel walk normal. 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, M25.562, G89.29 Chronic pain of both knees M54.2 Cervicalgia M79.622 Pain of left upper arm M25.60 Joint stiffness of multiple sites R23.9 Skin change L60.8 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 (mother-psoriasis, arthritis;)with PMH:thyroid disease, KATARINA no machine, gerd, fell skating R wrist fracture [facility] 2003 presents with 19y/o started psoriasis on ankled, then traveled to tibial areas, elbows, A few years quiet, then Psoriasis worsen on scalp since 2001, after divorce, 51y/o found to have thyroid disease, gained weight, developed yeast infection, now has polyarticular joint pain in bilateral shoulders/knees/hands x1year, minimal Am stiffness, +hla b27;low vit D 22.4, has findings consistent with secondary osteoarthritis, polyarticular psoriatic arthritis, low vit D, here with mild polyarthralgias, flare of psoriasis on scalp, L upper arm pain recently, R upper nose skin irritated/hyperpigmented, irritated R eye after full facial redness/irritation s/p cetaphil soap/cream 1month ago= supportive care, may try antihistamine, follow up with derm, for flares take prednisone marko, continue PT exercises, no response with otezla/too costly, f/u ENT, improved methotrexate 9-10tabs once a week, daily folic acid, improved with humira 40mg sq injection once every other week, increase water intake, take vit D 4000 International Units daily with food, start prn heat/ice/ over the counter arthritis creams, low impact weightbearing exercise, follow up with dentist for dental care, answered all questions and concerns-patient voiced understanding. RECOMMENDATION/PLAN: Office Visit on 02/17/18 -DXA-AXIAL SKELETON -COMP METABOLIC PANEL -CBC -SED RATE WESTERGREN -C-REACTIVE PROTEIN (CRP) -VITAMIN D 25 HYDROXY -ergocalciferol, vitamin D2, (VITAMIN D2 ORAL) -methotrexate 2.5 mg tablet Reviewed labs/tests with patient Provided printed info on osteoarthritis, reprinted psoriatic arthritis info 07/01/16 02/17/18 check cmp, cbc, esr, crp today and in 3months, in future check quantiferon tb 07/01/16 precert humira 02/17/18 JESICA 0, pain 50%;09/09/17 JESICA 0, pain 90%;11/11/16 JESICA 0, pain 90%;07/01/16 JESICA 0, pain 40%;02/02/16 JESICA 0, pain 60%;12/08/15 JESICA 0, pain 10-20%;11/01/15 JESICA 0, pain 40%; May apply over the counter arthritis cream (biofreeze, icy hot, asper cream, tiger balm, capsacin, etc.) to painful joints up to four times a day. Avoid contact with eyes. May take ES acetaminophen 500mg every 4-6hours for joint pain. Do not exceed 3000mg /day. Decrease stress Improve sleep May apply heat/ice 20minutes on and off to areas of pain Avoid aggravating triggers Calcium 1000-1200mg daily with food in DIVIDED doses take Vitamin D 4000 International Units daily with food Recommend goal: exercising 30minutes 3 times a week Recommend weight-bearing aerobic exercises such as walking, dancing, low impact aerobics, elliptical machine, stair climbing, gardening flexibility exercises and strength training exercises Recommend avoiding high impact exercises such as jumping, running or jogging or movements where you bend forward and twist the waist, for instance- touching your toes, sit-ups, 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 see spine clinic and physical therapy Additional time spent with patient on healthy lifestyle, healthy food and anti-inflammatory diet (with emphasis on whole plant based diet), avoiding refined carbs/sugars and processed food, appropriate exercise (stretching, cardio and strengthening), good sleep hygiene, stress mgt, and supplementing vital deficiencies and maintaining healthy wt and BMI. Additional information provided with references and educational information. Bone Health Recommendations: -Bone Density is recommended after menopause and after age 55-60, sooner if patient has risk factors, sooner if on systemic steroid use of 3 months or more. -Vitamin D supplementation recommended, optimal dose is the dose necessary to achieve Vitamin D 25-OH blood level in range of 40-60 ng/mL. (Vitamin D supplement in international units, is the dose necessary to achieve a Vitamin D 25-OH blood level in range of 40-60 ng/mL). -Recommended daily dose of calcium: 1200mg total a day in divided doses. Calcium from dietary sources, if not sufficient, or if with h/o calcium nephrolithiasis would recommend Calcium Citrate supplement, as it is recommended to avoid caclium carbonate products, which as main dietary calcium source. The after visit summary has information on dietary calcium and instructions on reading calcium label and converting the %DV to mg. -Regular weight-bearing and muscle-strengthening exercise -Avoidance of tobacco smoking, excessive alcohol intake and excessive caffeine intake. -Fall and fracture precautions -Continued regular dental follow up visits and good dental/gum care Stressed the importance of following up with PCP and specialists for his/her chronic diseases, health, CV, and cancer screening and continued care. Will follow disease activity/progression and adjust therapeutic regimen to disease activity and severity. Discussed medication dosage, usage, goals of therapy, and side effects. Available test results were reviewed An additional 20 minutes were spent outside of the patient visit to review records. Additional time spent with the patient to discuss their questions. Additional time spent with the patient devoted to discussing treatment strategy, planning, and implementation. Discussed findings, impression and plan with patient. Patient understands above plan; questions asked and answered. Patient agrees to plan as noted above. Total time spent on this visit, with more than 50% of time spent in face to face with patient, in consultation, and in addition to Counseling and Coordination of Care:1:18-38PM spent more than 50% of the [id number] time in counseling, explanation of diagnosis, and planning of further management Follow up: 5-6months, earlier if needed Recommendations to share with referring physician/Primary care physician : Dear Dr. Bran and Dm Lundberg NP : I had the pleasure of seeing your patient, . I have enclosed a copy of my clinic note with my assessment and recommendations for this patient. Recommendations for your consideration as you deem necessary: -Continuous follow up with Primary care physician for cardiovascular disease prevention, for age appropriate cancer screening and routine health maintenance and wellness, and infection precautions and age appropriate immunization recommended. Thank you for allowing me to participate in the care of your patient. Chelsea Morales MD I will relay my findings and recommendations to the physician requesting the consult by letter/electronic shared medical records. cc Amanda Bran MD;Dm Lundberg NP [address] [id number] PROMIS? (Patient-Reported Outcomes Measurement Information System) is a set of person-centered measures that evaluates and monitors physical, social, and emotional health. It can be used with the general population and with individuals living with chronic conditions. February 17, 2018 PROMIS 10: PHYSICAL AND MENTAL HEALTH: Global Physical Health T Score: 54.1 Global Physical Health Percentile: 65.91 Global Mental Health T Score: 59 Global Mental Health Percentile: 81.59 PROMIS PAIN, FATIGUE, FUNCTIONAL STATUS: PROMIS Pain Interference T Score: 48.54 PROMIS Pain Interference Percentile: 55.96 PROMIS Fatigue T Score: 32.62 PROMIS Fatigue Percentile: 95.91 PROMIS Functional Status T Score: 53.97 PROMIS Functional Status Percentile: 65.54 RAPID 3: DISEASE ACTIVITY: Weighed Score Levels: 0 - 1: Near Remission 1.3 - 2.0: Low Severity 2.3 - 4.0: Moderate Severity 4.3 - 10.0: High Severity SCORES: RAPID 3 Functional Status Subscore: 0 3 Pain Tolerance Subscore: 1 3 Global Estimate Subscore: 1 3 Cumulative Score: 2 3 Weighed Score: 0.7 REVIEW OF SYSTEMS: February 17, 2018 CONSTITUTIONAL: Fever: No Fatigue: No Pain: Yes EYES: Pain: Yes Redness: Yes Loss of vision: No Dryness: No EAR, NOSE, MOUTH, THROAT: Nose bleeds: No Hearing loss: No Sores in mouth: No Swallowing problems: No Dry mouth: No CARDIOVASCULAR: Chest pain: No Swelling in the feet or legs: No RESPIRATORY: Shortness of breath: No Pain with breathing: No Chronic cough: No Coughing up blood: No , GASTROINTESTINAL: Heartburn: No Nausea: No Diarrhea: No Blood in the stool or black stool: No Abdominal pain: No GENITOURINARY: Blood in urine: No Pain or burning on urination: No] MUSCULOSKELETAL: Joint pain: Yes Joint swelling: No Morning stiffness in joints: Yes Muscle weakness: No Back pain: No SKIN: Rashes: No Sun sensitive rashes: No Color changes of hands or feet in the cold: No Hair loss: No Nail changes: No NEUROLOGICAL: Headaches: No Dizziness: No Numbness or tingling: No Memory loss: No Seizures: No HEMATOLOGIC/LYMPHATIC: Swollen glands: No Anemia: Yes ALLERGIES/IMMUNOLOGIC: Allergies (other than medications): Yes Increased susceptibility to infection: Yes KNOWN MEDICAL CONDITIONS: Diabetes: No Thyroid disease: Yes High blood pressure: No Chelsea Morales MD 02/17/2018 1:46 PM [facility] LAB FACTS LAB HOURS: Lab is open 7:30am to 6pm M-, open 7:30am -5pm on Friday and open 8am-12pm Friday. Routine Lab Orders 45 days after they are entered. If your lab orders , you may be required to wait in the lab while they are reinstated FUTURE ORDERS are lab tests to be completed on the ?EXPECTED? date. These orders 45 days after the expected date. STANDING ORDERS are recurring orders with an expiration date. The interval will indicate how often the test should be completed. FASTING LAB means nothing to eat or drink (except water) 10- 12 hours before your blood is drawn. CT/MRI/IVP If you have one of these radiology exams ordered along with blood work, please complete the blood work at least one day prior to the scheduled exam. [facility] No appointment needed At the [facility], patients 6 years and older can get walk- in medical attention for common health problems including: Cold and flu symptoms Conjunctivitis Ear and throat infections Minor bumps and cuts Seasonal allergies Skin rashes Simple sprains and strains Sinus infections Urinary tract infections Upper respiratory tract infections Locations and Times [facility] - [address] [facility], [facility] - [address] [place] [address] - Friday through Friday 6 AM - 9 PM - Friday and Friday 8 AM - 4 PM Emergency Department [facility] - [address] [facility] (off of [facility]), [facility] [phone] Pharmacy Hours: Friday through Friday 8 am to 6 pm Verify Pharmacy Benefits has been completed: Yes Retail Pharmacy has been updated: Yes Patient would like prescriptions ePrescribed to: Retail (local) Pharmacy:Name of Pharmacy Phone Number May apply over the counter arthritis cream (biofreeze, icy hot, asper cream, tiger balm, capsacin, etc.) to painful joints up to four times a day. Avoid contact with eyes. May take ES acetaminophen 500mg every 4-6hours for joint pain. Do not exceed 3000mg /day. Decrease stress Improve sleep May apply heat/ice 20minutes on and off to areas of pain Avoid aggravating triggers Calcium 1000-1200mg daily with food in DIVIDED doses if labs normal, take Vitamin D 4000 International Units daily with food Recommend goal: exercising 30minutes 3 times a week Recommend weight-bearing aerobic exercises such as walking, dancing, low impact aerobics, elliptical machine, stair climbing, gardening flexibility exercises and strength training exercises Recommend avoiding high impact exercises such as jumping, running or jogging or movements where you bend forward and twist the waist, for instance- touching your toes, sit-ups, using row machine assisted pain recommendations per PCP/pain clinic see derm for skin care, fungal/psoriasis care Methotrexate 2.5mg tabs: Take 8tabs by mouth with food once a week Do not drink alcohol while taking methotrexate Have bloodwork every 8-12weeks for monitoring while taking Methotrexate Please take folic acid 1mg tab:Take 1tab by mouth daily humira 40mg sq injection once every other week Please hold methotrexate/humira if on antibiotics or if you have any signs/symptoms of infection. see spine clinic and physical therapy Thank you. BONE MINERAL DENSITY PATIENT INSTRUCTIONS Bone mineral density testing measures the amount of calcium in certain parts of your bones. This information determines how strong your bones are. The test is used to detect osteoporosis, a disease in which the bone's mineral content and density are low, increasing a person's risk of fractures. The lumbar spine (lower back) and the hip are the skeletal sites usually examined. For the test, remember that: 1. You cannot take this test if you are . 2. Eat a normal diet on the day of the test. 3. Take your medications as you normally would. 4. DO NOT take calcium supplements (such as Tums) for 24 hours before the test. 5. On the day of the test, leave valuables (jewelry or credit cards) at home. 6. The test should be performed prior to oral, rectal or IV contrast studies, or at least 7 days after any of these studies. For the test, you may be asked to wear a hospital gown. You will lie on your back, on a padded table, in a comfortable position. Generally, you can resume your usual activities immediately. Chelsea Morales MD 02/17/2018 2:42 PM Signed Addended by: CHELSEA MORALES MD on: 02/17/2018 02:42 PM Modules accepted: Orders Referring Provider: DM LUNDBERG [[id number]] Allergies As of Date: 02/17/2018 (No Known Allergies) Date Reviewed: 09/09/2017 Reviewed by: Josefina Manjarrez CUSTOMER SERVICE AGENT - Fully Assessed Reason for Visit: Follow Up [171] Cmt: intermittent sharp pain to left upper arm Primary Visit Diagnosis:Polyarticular psoriatic arthritis (HCC) [L40.59] Other Visit Diagnoses:Long-term use of high-risk medication [Z79.899] Elevated LFTs [R94.5] Anemia of chronic disease [D63.8] Elevated sed rate [R70.0] Elevated C-reactive protein (CRP) [R79.82] Vitamin D deficiency [E55.9] Postmenopausal osteoporosis of multiple sites without pathological fracture [M81.0] Secondary osteoarthritis of multiple sites [M15.3] Chronic pain of both knees [M25.561, M25.562, G89.29] Cervicalgia [M54.2] Pain of left upper arm [M79.622] Joint stiffness of multiple sites [M25.60] Skin change [R23.9] Toenail deformity [L60.8] Order(s):methotrexate 2.5 mg tabletTake 9-10tabs by mouth with food/dinner once a week. No alcohol. Hold if on antibiotics or ill.Disp: 50 tabletRfl: 3 COMP METABOLIC PANEL [SQCMP] Order #: [id number] FUTURE CBC [SQCBC] Order #: [id number] FUTURE SED RATE WESTERGREN [SQWSR] Order #: [id number] FUTURE C-REACTIVE PROTEIN (CRP) [SQCRP] Order #: [id number] FUTURE VITAMIN D 25 HYDROXY [SQVITD] Order #: [id number] FUTURE DXA-AXIAL SKELETON [[id number]] Order #: [id number] FUTURE COMP METABOLIC PANEL [SQCMP] Order #: [id number] FUTURE CBC [SQCBC] Order #: [id number] FUTURE SED RATE WESTERGREN [SQWSR] Order #: [id number] FUTURE C-REACTIVE PROTEIN (CRP) [SQCRP] Order #: [id number] FUTURE VITAMIN D 25 HYDROXY [SQVITD] Order #: [id number] FUTURE Prescriptions as of 02/17/2018 Sig: VITAMIN D2 ORAL Take by mouth. patient unsure* FOLIC ACID 1 MG TABLET Take 1 tablet by mouth once d* ADALIMUMAB 40 MG/0.8 ML SUBCU* Inject 40 mg subcutaneously. * IBUPROFEN 200 MG TABLET Take 400 mg by mouth as neede* LEVOTHYROXINE 112 MCG CAPSULE Take 100 mcg by mouth. METHOTREXATE SODIUM 2.5 MG TA* Take 9-10tabs by mouth with f* PREDNISONE 5 MG TABLET Day 1=6tabs with food, Day 2=* Problem List As Of Date 02/17/2018 Noted Resolved Polyarticular psoriatic arthritis (HCC) [L40.59]INVALID FOR* Chronic pain of both shoulders [M25.511, G89.29*INVALID FOR* Chronic pain of both knees [M25.561, M25.562, G*INVALID FOR* Gastroesophageal reflux disease without esophag*INVALID FOR* Bilateral hand pain [M79.641, M79.642] INVALID FOR* Secondary osteoarthritis of multiple sites [M15*INVALID FOR* Vitamin D deficiency [E55.9] INVALID FOR* Bilateral high frequency sensorineural hearing *INVALID FOR* Fullness in ear [H93.8X9] INVALID FOR* Cervicalgia [M54.2] INVALID FOR* Cervical myofascial strain [S16.1XXA] INVALID FOR* Cervical spondylosis without myelopathy [M47.81*INVALID FOR* Tight unbalanced muscles [R29.898] INVALID FOR* Posture imbalance [R29.3] INVALID FOR* Long-term use of high-risk medication [Z79.899] INVALID FOR* Scalp psoriasis [L40.9] INVALID FOR* Chronic left shoulder pain [M25.512, G89.29] INVALID FOR* Pain of left upper arm [M79.622] INVALID FOR* Joint stiffness of multiple sites [M25.60] INVALID FOR* Skin change [R23.9] INVALID FOR* Toenail deformity [L60.8] INVALID FOR* Other instructions from your clinician: [facility] LAB FACTS LAB HOURS: Lab is open 7:30am to 6pm M-, open 7:30am -5pm on Friday and open 8am-12pm Friday. Routine Lab Orders 45 days after they are entered. If your lab orders , you may be required to wait in the lab while they are reinstated FUTURE ORDERS are lab tests to be completed on the ?EXPECTED? date. These orders 45 days after the expected date. STANDING ORDERS are recurring orders with an expiration date. The interval will indicate how often the test should be completed. FASTING LAB means nothing to eat or drink (except water) 10-12 hours before your blood is drawn. CT/MRI/IVP If you have one of these radiology exams ordered along with blood work, please complete the blood work at least one day prior to the scheduled exam. [facility] No appointment needed At the [facility], patients 6 years and older can get walk-in medical attention for common health problems including: Cold and flu symptoms Conjunctivitis Ear and throat infections Minor bumps and cuts Seasonal allergies Skin rashes Simple sprains and strains Sinus infections Urinary tract infections Upper respiratory tract infections Locations and Times [facility] - [address] [facility], [facility] - [address] [place] [address] - Friday through Friday 6 AM - 9 PM - Friday and Friday 8 AM - 4 PM Emergency Department [facility] - [address] [facility] (off of [facility]), [facility] [phone] Pharmacy Hours: Friday through Friday 8 am to 6 pm Verify Pharmacy Benefits has been completed: Yes Retail Pharmacy has been updated: Yes Patient would like prescriptions ePrescribed to: Retail (local) Pharmacy:Name of Pharmacy Phone Number May apply over the counter arthritis cream (biofreeze, icy hot, asper cream, tiger balm, capsacin, etc.) to painful joints up to four times a day. Avoid contact with eyes. May take ES acetaminophen 500mg every 4-6hours for joint pain. Do not exceed 3000mg /day. Decrease stress Improve sleep May apply heat/ice 20minutes on and off to areas of pain Avoid aggravating triggers Calcium 1000-1200mg daily with food in DIVIDED doses if labs normal, take Vitamin D 4000 International Units daily with food Recommend goal: exercising 30minutes 3 times a week Recommend weight-bearing aerobic exercises such as walking, dancing, low impact aerobics, elliptical machine, stair climbing, gardening flexibility exercises and strength training exercises Recommend avoiding high impact exercises such as jumping, running or jogging or movements where you bend forward and twist the waist, for instance- touching your toes, sit-ups, using row machine assisted pain recommendations per PCP/pain clinic see derm for skin care, fungal/psoriasis care Methotrexate 2.5mg tabs: Take 8tabs by mouth with food once a week Do not drink alcohol while taking methotrexate Have bloodwork every 8-12weeks for monitoring while taking Methotrexate Please take folic acid 1mg tab:Take 1tab by mouth daily humira 40mg sq injection once every other week Please hold methotrexate/humira if on antibiotics or if you have any signs/symptoms of infection. see spine clinic and physical therapy Thank you. BONE MINERAL DENSITY PATIENT INSTRUCTIONS Bone mineral density testing measures the amount of calcium in certain parts of your bones. This information determines how strong your bones are. The test is used to detect osteoporosis, a disease in which the bone's mineral content and density are low, increasing a person's risk of fractures. The lumbar spine (lower back) and the hip are the skeletal sites usually examined. For the test, remember that: 1. You cannot take this test if you are . 2. Eat a normal diet on the day of the test. 3. Take your medications as you normally would. 4. DO NOT take calcium supplements (such as Tums) for 24 hours before the test. 5. On the day of the test, leave valuables (jewelry or credit cards) at home. 6. The test should be performed prior to oral, rectal or IV contrast studies, or at least 7 days after any of these studies. For the test, you may be asked to wear a hospital gown. You will lie on your back, on a padded table, in a comfortable position. Generally, you can resume your usual activities immediately. Prescriptions ordered this encounter Disp Refills Start End METHOTREXATE SODIUM 2.5 MG TABLET 50 t* 3 02/17/2018 Sig: Take 9-10tabs by mouth with food/dinner once a week. No alcohol. Hold if on antibiotics or ill. Medications Discontinued During This Encounter triamcinolone-emollient comb45 0.1 %* 02/17/2018 Class: Historical Med Route: TOPICAL Sig: Apply to affected area twice daily as needed. Disc: Course of therapy completed ergocalciferol, vitamin D2, (DRISDOL* 24 c* 0 08/02/2017 02/17/2018 Sig: (take by mouth with food 3times a week, ONE CAPSULE ON Mondays, Fri, Fridays) FOR A TOTAL OF 8 WEEKS. Disc: Course of therapy completed methotrexate 2.5 mg tablet 50 t* 3 10/06/2017 02/17/2018 Sig: Take 9-10tabs by mouth with food/dinner once a week. No alcohol. Hold if on antibiotics or ill. Disc: Reason for discontinue is not on file. Disposition: Return nonfasting labs today and in 3months, schedule dxa/no prior bmd, for inflammatory arthritis fu OV 6months. Follow-up and Disposition History Recorded Letter Text Rosalba Elizabeth [facility] [place] Chelsea Morales M.D. Rheumatic and Immunologic Diseases/LN20 [address] [address] Office: [phone] February 17, 2018 Dm Lundberg NP ([facility]) [address] [address] Re: Rosalba Elizabeth [facility] No: [id number] Dear Dm Lundberg NP: I had the pleasure of seeing your patient, Ms. Rosalba Elizabeth. I have enclosed a copy of my clinic note with my assessment and recommendations for this patient. If you have any further questions or concerns please feel free to contact my office directly. Thank you for allowing me to participate in the care of your patient. Sincerely, Electronically Signed (to expedite mailing): Chelsea Morales M.D. Enclosure: Clinic Note Encounter Status:Closed by CHELSEA MORALES MD on 02/17/18 OFFICE VISIT Observed: 02/10/2018 Status: F Source: [place] 2:39 PM [facility] REPOSITORY [facility] [address] [place] [address] OFFICE VISIT Date of Service: 02/10/18 MR#: [id number] Acct: [id number] Name: ROSALBA ELIZABETH Rep #: [id number] : 1950 Provider: ANA ROSA Lundberg Age/Sex: 68/F Location: [facility] Status: Signed Intake Intake Visit Reasons: FLU SHOT Office Meds Flucelvax Quad 9984-3543 (PF) Performing Provider: SERGE Shaffer Administered by: Eliane Plasencia on 02/10/18 14:30 Dose Route Admin Location Lot Number Expiration Date [employer] Aide 0.5 mL IM R ARM [id number] 10/18/18 45993-959-33 [place], [employer]. Assessment AND Plan Orders Orders: Medications Discontinued: Flucelvax Quad 9021-3523 (PF) (flu vac qs 2017(4 yr up)CD0.5 mL IM ONCE 0.5 mL 0RF NS Z23 (PF)) Discontinued Reason: Office Medication has been Documented as given 02/10/18 1439 <Electronically signed by Dm VALENTINE> Date Dm VALENTINE CC: CNTHERAPY Observed: 11/05/2017 Status: COMPLETED Source: [place] 9:30 AM [facility] REPOSITORY OT/PT/Speech Visit (PTMCRM) ROSALBA ELIZABETH ([id number]) 1950 F Date Time Provider Department 11/05/17 9:30 AM TAM BOSE (PT) [facility] Date Time Provider Department Center 11/05/2017 9:30 AM [id number], REBECCA *[facility] Reason for Visit: PT Discharge [752] Primary Visit Diagnosis:Chronic left shoulder pain [M25.512, G89.29] Allergies As of Date: 11/05/2017 (No Known Allergies) Date Reviewed: 09/09/2017 Reviewed by: Josefina Manjarrez LPN - Fully Assessed Prescriptions as of 11/05/2017 Sig: METHOTREXATE SODIUM 2.5 MG TA* Take 9-10tabs by mouth with f* PREDNISONE 5 MG TABLET Day 1=6tabs with food, Day 2=* ERGOCALCIFEROL (VITAMIN D2) 5* (take by mouth with food 3tim* FOLIC ACID 1 MG TABLET Take 1 tablet by mouth once d* ADALIMUMAB 40 MG/0.8 ML SUBCU* Inject 40 mg subcutaneously. * IBUPROFEN 200 MG TABLET Take 400 mg by mouth as neede* TRIAMCINOLONE ACETONIDE 0.1 %* Apply to affected area twice* LEVOTHYROXINE 112 MCG CAPSULE Take 100 mcg by mouth. Progress Notes: Tam Bose, PT 11/05/2017 1:01 PM Signed Episode Visit Count: 12 Therapist That Will Oversee The Plan Of Care: Tam Bose Start of Care Date: 09/17/17 Onset Date: 06/19/17 Plan of Care Certification Date: 09/17/17 Patient Identified by Name and Date of : Yes REHABILITATION AND SPORTS THERAPY PHYSICAL THERAPY DISCONTINUANCE OF CARE PLAN OF CARE UPDATE: Assessment: Rosalba Elizabeth is discontinued from Physical Therapy services due to goal achievement and maximal benefit.. Patient was seen for 12 visits from Start of Care Date: 09/17/17 to 11/05/2017 and treatment included: Therapeutic exercise, Manual therapy, Patient/Family/Caregiver Education and Modalities: E-Stim Unattended. Patient reports that she is no longer having difficulty with opening and closing the car door. Patient notes that she has been reaching and doing some lifting without difficulty. No difficulty with sleeping. Patient denies pain complaints at this time. Reports compliance with exercises. She continues to have some limitations in end ROM and strength of the abductors and external rotators. She demonstrates good knowledge and technique with HEP. Patient is near meeting all goals at this time. See below for updated goal status. Continued improvement expected with regular performance of HEP. Patient educated regarding alternating exercises and performing exercises at least 3-5x/week for strengthening and stretching daily. Patient verbalizes understanding. Patient has PT contact information should she have additional questions or concerns. Goals for Episode of Care: created on 09/17/17 through 11/07/17 Patent verbalizes ability to be able to open and close the car door with left arm. (MET) Blaine in home exercise program. (MET) Patient will increase active ROM of Left shoulder by 15-20 degrees for flexion, abduction and external rotation to allow pt to improved performance of ADLs. (Progressing-not met) Patient will increase strength of Left shoulder and scapular musculature by at least 1/3 mm grade to allow for return to prior functional status. (Progressing) Perform sleeping on left side with decreased report of symptoms/pain in 3 weeks. (MET) Perform reaching into overhead cupboard without pain. (MET) Demonstrate improvement on functional score: Patient will improve his/her AM-PAC T-scale score by 4 points to indicate a Minimal Clinical Important Difference. (MET) G CODE REPORTING Based on clinical assessment and the score on the AM-PAC Scale Score Assessment Tool, the G code and corresponding severity modifiers are documented below. Progress Report: 10/16/2017 Current Status: Carrying, Moving and Handling Objects: G8984 CI 1-19% impaired Goal Status: Carrying, Moving and Handling Objects: G8985 CI 1-19% impaired Discharge: 11/05/2017 Goal Status: Carrying, Moving and Handling Objects: G8985 CH 0% impaired Discharge: Carrying, Moving and Handling Objects: G8986 CI 1-19% impaired SUBJECTIVE: Patient reports that she is doing well. Patient reports that she is doing well. . No pain complaints. Had been doing a lot of activity with the left arm without difficulty. Pain Score: 0/10 Pain Location: Shoulder - Left Post Treatment Pain Score: 0/10 Pain Location: Shoulder - Left OBJECTIVE MEASURES WITH LEVEL OF FUNCTION: Posture / Alignment Posture: Increased thoracic kyphosis;Rounded shoulders L Shoulder Alignment: Elevated shoulder Shoulder Observations L Shoulder Palpation Tenderness: Bicipital groove Sensation - Upper Extremity UE Light Touch Sensation: Grossly Intact UE AROM L Shoulder Extension: 65 Degrees L Shoulder Flex: 142 Degrees L Shoulder ABduction: 110 Degrees L Shoulder Internal Rotation: 90 Degrees L Shoulder External Rotation: 62 Degrees UE and Cervical Strength L Shoulder Extension: 4+/5 L Shoulder Flexion: 4/5 L Shoulder Abduction (C5): 4/5 L Shoulder Internal Rotation: 4+/5 L Shoulder External Rotation: 4/5 L Shoulder Horizontal ABduction: 4/5 L Shoulder Horizontal ADduction: 4/5 L Scapular Retraction: 4/5 L Scapular Protraction: 4-/5 L Upper Trapezius: 4/5 L Middle Trapezius: 3+/5 L Lower Trapezius: 3+/5 L Rhomboid: 3+/5 Functional Strength Functional Strength: no difficulty with opening or closing the car door; no difficulty with sleeping; no difficulty with reaching overhead or opening jars. TREATMENT: Therapeutic Exercise: 2: reassessment of status/goal reconciliation 3: verbally reviewed HEP 4: educated patient regarding alternating exercises between scapular and shoulder strengthening at least 3-5x/week and stretching daily Skilled Intervention: Patient education as noted. Reassessment of status/goal reconciliation. Billing: Penny: Therapeutic Exercise ([id number]): 1:1 time: 30 minutes (2 units: 23-37 mins) Total time: 25 minutes Tam Bose PT PROGRESS Observed: 11/05/2017 Status: COMPLETED Source: [place] 7:54 AM [facility] OTHER CAMPUS REPOSITORY [facility] ID: [id number] Author: Tam (PtAngel Bose Service: (none) Author Type: Physical Therapist Type: Progress Notes Filed: 11/05/2017 1:01 PM Note Text: Episode Visit Count: 12 Therapist That Will Oversee The Plan Of Care: Tam Bose Start of Care Date: 09/17/17 Onset Date: 06/19/17 Plan of Care Certification Date: 09/17/17 Patient Identified by Name and Date of : Yes REHABILITATION AND SPORTS THERAPY PHYSICAL THERAPY DISCONTINUANCE OF CARE PLAN OF CARE UPDATE: Assessment: Rosalba Elizabeth is discontinued from Physical Therapy services due to goal achievement and maximal benefit.. Patient was seen for 12 visits from Start of Care Date: 09/17/17 to 11/05/2017 and treatment included: Therapeutic exercise, Manual therapy, Patient/Family/Caregiver Education and Modalities: E-Stim Unattended. Patient reports that she is no longer having difficulty with opening and closing the car door. Patient notes that she has been reaching and doing some lifting without difficulty. No difficulty with sleeping. Patient denies pain complaints at this time. Reports compliance with exercises. She continues to have some limitations in end ROM and strength of the abductors and external rotators. She demonstrates good knowledge and technique with HEP. Patient is near meeting all goals at this time. See below for updated goal status. Continued improvement expected with regular performance of HEP. Patient educated regarding alternating exercises and performing exercises at least 3-5x/week for strengthening and stretching daily. Patient verbalizes understanding. Patient has PT contact information should she have additional questions or concerns. Goals for Episode of Care: created on 09/17/17 through 11/07/17 Patent verbalizes ability to be able to open and close the car door with left arm. (MET) Blaine in home exercise program. (MET) Patient will increase active ROM of Left shoulder by 15-20 degrees for flexion, abduction and external rotation to allow pt to improved performance of ADLs. (Progressing-not met) Patient will increase strength of Left shoulder and scapular musculature by at least 1/3 mm grade to allow for return to prior functional status. (Progressing) Perform sleeping on left side with decreased report of symptoms/pain in 3 weeks. (MET) Perform reaching into overhead cupboard without pain. (MET) Demonstrate improvement on functional score: Patient will improve his/her AM-PAC T-scale score by 4 points to indicate a Minimal Clinical Important Difference. (MET) G CODE REPORTING Based on clinical assessment and the score on the AM-PAC Scale Score Assessment Tool, the G code and corresponding severity modifiers are documented below. Progress Report: 10/16/2017 Current Status: Carrying, Moving and Handling Objects: G8984 CI 1-19% impaired Goal Status: Carrying, Moving and Handling Objects: G8985 CI 1-19% impaired Discharge: 11/05/2017 Goal Status: Carrying, Moving and Handling Objects: G8985 CH 0% impaired Discharge: Carrying, Moving and Handling Objects: G8986 CI 1-19% impaired SUBJECTIVE: Patient reports that she is doing well. Patient reports that she is doing well. . No pain complaints. Had been doing a lot of activity with the left arm without difficulty. Pain Score: 0/10 Pain Location: Shoulder - Left Post Treatment Pain Score: 0/10 Pain Location: Shoulder - Left OBJECTIVE MEASURES WITH LEVEL OF FUNCTION: Posture / Alignment Posture: Increased thoracic kyphosis;Rounded shoulders L Shoulder Alignment: Elevated shoulder Shoulder Observations L Shoulder Palpation Tenderness: Bicipital groove Sensation - Upper Extremity UE Light Touch Sensation: Grossly Intact UE AROM L Shoulder Extension: 65 Degrees L Shoulder Flex: 142 Degrees L Shoulder ABduction: 110 Degrees L Shoulder Internal Rotation: 90 Degrees L Shoulder External Rotation: 62 Degrees UE and Cervical Strength L Shoulder Extension: 4+/5 L Shoulder Flexion: 4/5 L Shoulder Abduction (C5): 4/5 L Shoulder Internal Rotation: 4+/5 L Shoulder External Rotation: 4/5 L Shoulder Horizontal ABduction: 4/5 L Shoulder Horizontal ADduction: 4/5 L Scapular Retraction: 4/5 L Scapular Protraction: 4-/5 L Upper Trapezius: 4/5 L Middle Trapezius: 3+/5 L Lower Trapezius: 3+/5 L Rhomboid: 3+/5 Functional Strength Functional Strength: no difficulty with opening or closing the car door; no difficulty with sleeping; no difficulty with reaching overhead or opening jars. TREATMENT: Therapeutic Exercise: 2: reassessment of status/goal reconciliation 3: verbally reviewed HEP 4: educated patient regarding alternating exercises between scapular and shoulder strengthening at least 3-5x/week and stretching daily Skilled Intervention: Patient education as noted. Reassessment of status/goal reconciliation. Billing: Hemalatha: Therapeutic Exercise ([id number]): 1:1 time: 30 minutes (2 units: 23-37 mins) Total time: 25 minutes Tam Bose PT CNTHERAPY Observed: 10/29/2017 Status: COMPLETED Source: [place] 8:45 AM [facility] OTHER [facility] REPOSITORY OT/PT/Speech Visit (PTMCRM) ROSALBA ELIZABETH ([id number]) 1950 F Date Time Provider Department 10/29/17 8:45 AM TAM BOSE (PT) [facility] Date Time Provider Department Center 10/29/2017 8:45 AM [id number], REBECCA *[facility] Reason for Visit: Physical Therapy [503] Primary Visit Diagnosis:Chronic left shoulder pain [M25.512, G89.29] Allergies As of Date: 10/29/2017 (No Known Allergies) Date Reviewed: 09/09/2017 Reviewed by: Josefina Manjarrez LPN - Fully Assessed Prescriptions as of 10/29/2017 Sig: METHOTREXATE SODIUM 2.5 MG TA* Take 9-10tabs by mouth with f* PREDNISONE 5 MG TABLET Day 1=6tabs with food, Day 2=* ERGOCALCIFEROL (VITAMIN D2) 5* (take by mouth with food 3tim* FOLIC ACID 1 MG TABLET Take 1 tablet by mouth once d* ADALIMUMAB 40 MG/0.8 ML SUBCU* Inject 40 mg subcutaneously. * IBUPROFEN 200 MG TABLET Take 400 mg by mouth as neede* TRIAMCINOLONE ACETONIDE 0.1 %* Apply to affected area twice* LEVOTHYROXINE 112 MCG CAPSULE Take 100 mcg by mouth. Progress Notes: Tam Bose, PT 10/29/2017 1:24 PM Signed Episode Visit Count: 11 Therapist That Will Oversee The Plan Of Care: Tam Bose Start of Care Date: 09/17/17 Onset Date: 06/19/17 Plan of Care Certification Date: 09/17/17 Patient Identified by Name and Date of : Yes REHABILITATION AND SPORTS THERAPY PHYSICAL THERAPY TREATMENT NOTE ASSESSMENT: Rosalba Elizabeth demonstrated difficulty with prone horiz abduction and flexion exercises. She reports increased ease with shoulder abduction/external rotation combo such as reaching for the car door. Patient notes increased ease with reaching into cupboard. Shoulder is no longer limiting her with daily activity. Continues to have pain in the shoulder with lying on the left side at times. The patient will continue to benefit from continued skilled physical therapy for reassessment of status/finalize HEP. PLAN FOR NEXT VISIT: final recheck next session SUBJECTIVE: Patient reports that her shoulder is not as good as last week. Has spent a lot of time in the car lately. Pain Score: 2/10 Pain Location: Shoulder - Left Description: Sore Frequency: Intermittent Post Treatment Pain Score: 0/10 Pain Location: Shoulder - Left OBJECTIVE MEASURES WITH LEVEL OF FUNCTION: Patient is in no acute distress. Patient is able to simulate reaching for car door without difficulty. Patient is challenged with prone shoulder flexion and horiz abduction. Patient with rounded shoulders B TREATMENT: Therapeutic Exercise: 2: shoulder flexion stretch on wall 10 sec x 6 3: shoulder IR stretch 15 sxec x 4 4: shoulder external rotation stretch 10 sec x 6 5: UBE: seat 10, level 1.5 x 4 minutes- alternating directions ea minute 6: prone shoulder extension, rows, horiz abd x 15 reps ea 7: prone shoulder adduction x 15 8: prone shoulder flexion, horiz abd with thumbs down x 10 reps ea 9: prone 90-90 x 10 10: biceps stretch 15 sec x 3 Skilled Intervention: Patient was educated in proper exercise technique and purpose for exercises. Skilled judgment was provided in selection of appropriate interventions. Correct performance of therapeutic exercises was facilitated with verbal and visual cuing. Jcing: Hemalatha: Therapeutic Exercise ([id number]): 1:1 time: 41 minutes (3 units: 38-52 mins) Total time: 44 minutes Tam Bose PT PROGRESS Observed: 10/29/2017 Status: COMPLETED Source: [place] 8:01 AM [facility] REPOSITORY [facility] ID: [id number] Author: Tam (Pt) Karlie Service: (none) Author Type: Physical Therapist Type: Progress Notes Filed: 10/29/2017 1:24 PM Note Text: Episode Visit Count: 11 Therapist That Will Oversee The Plan Of Care: Tam Bose Start of Care Date: 09/17/17 Onset Date: 06/19/17 Plan of Care Certification Date: 09/17/17 Patient Identified by Name and Date of : Yes REHABILITATION AND SPORTS THERAPY PHYSICAL THERAPY TREATMENT NOTE ASSESSMENT: Rosalba Elizabeth demonstrated difficulty with prone horiz abduction and flexion exercises. She reports increased ease with shoulder abduction/external rotation combo such as reaching for the car door. Patient notes increased ease with reaching into cupboard. Shoulder is no longer limiting her with daily activity. Continues to have pain in the shoulder with lying on the left side at times. The patient will continue to benefit from continued skilled physical therapy for reassessment of status/finalize HEP. PLAN FOR NEXT VISIT: final recheck next session SUBJECTIVE: Patient reports that her shoulder is not as good as last week. Has spent a lot of time in the car lately. Pain Score: 2/10 Pain Location: Shoulder - Left Description: Sore Frequency: Intermittent Post Treatment Pain Score: 0/10 Pain Location: Shoulder - Left OBJECTIVE MEASURES WITH LEVEL OF FUNCTION: Patient is in no acute distress. Patient is able to simulate reaching for car door without difficulty. Patient is challenged with prone shoulder flexion and horiz abduction. Patient with rounded shoulders B TREATMENT: Therapeutic Exercise: 2: shoulder flexion stretch on wall 10 sec x 6 3: shoulder IR stretch 15 sxec x 4 4: shoulder external rotation stretch 10 sec x 6 5: UBE: seat 10, level 1.5 x 4 minutes- alternating directions ea minute 6: prone shoulder extension, rows, horiz abd x 15 reps ea 7: prone shoulder adduction x 15 8: prone shoulder flexion, horiz abd with thumbs down x 10 reps ea 9: prone 90-90 x 10 10: biceps stretch 15 sec x 3 Skilled Intervention: Patient was educated in proper exercise technique and purpose for exercises. Skilled judgment was provided in selection of appropriate interventions. Correct performance of therapeutic exercises was facilitated with verbal and visual cuing. Billing: Hemalatha: Therapeutic Exercise ([id number]): 1:1 time: 41 minutes (3 units: 38-52 mins) Total time: 44 minutes Tam Bose PT PROGRESS Observed: 10/23/2017 Status: COMPLETED Source: [place] 3:49 PM [facility] REPOSITORY [facility] ID: [id number] Author: Tam (Pt) Karlie Service: (none) Author Type: Physical Therapist Type: Progress Notes Filed: 10/28/2017 7:16 AM Note Text: Episode Visit Count: 10 Therapist That Will Oversee The Plan Of Care: Tam Bose Start of Care Date: 09/17/17 Onset Date: 06/19/17 Plan of Care Certification Date: 09/17/17 Patient Identified by Name and Date of : Yes REHABILITATION AND SPORTS THERAPY PHYSICAL THERAPY TREATMENT NOTE ASSESSMENT: Rosalba Elizabeth demonstrated difficulty with prone scapular stabilization exercises. Patient with less pain complaints overall. Patient verbalizes doing more with the left arm. Continues to have some difficulty with abduction and external rotation. The patient will continue to benefit from continued skilled physical therapy for scapular stabilization and strengthening. PLAN FOR NEXT VISIT: cont with prone scapular stabilization SUBJECTIVE: Patient reports that the shoulder is sore- has been doing a lot of work with the arm. No difficulty with exercises. Pain Score: 4/10 Pain Location: Shoulder - Left Description: Sore Frequency: Continuous Post Treatment Pain Score: 2/10 Pain Location: Shoulder - Left Post Treatment Pain Description: Sore OBJECTIVE MEASURES WITH LEVEL OF FUNCTION: Patient is in no acute distress. Patient is challenged with prone shoulder exercises- gail flexion and horiz abd. TREATMENT: Therapeutic Exercise: 2: shoulder flexion stretch on wall 10 sec x 6 3: shoulder IR stretch 15 sxec x 4 4: shoulder external rotation stretch 10 sec x 6 5: UBE: seat 10, level 1.5 x 5 minutes- alternating directions ea minute 6: prone shoulder extension, rows, horiz abd x 10 reps ea* 7: prone shoulder adduction x 15 8: standing AROM: flexion, abduction, extension x 10 reps ea 9: prone 90-90 x 10 12: standing ext rot AROM behind head x 10 Skilled Intervention: Patient was educated in proper exercise technique and purpose for exercises. Reviewed and educated patient on additions/changes for home exercise program as above (*) Skilled judgment was provided in selection of appropriate interventions. Provided written instruction for home exercise program to facilitate proper performance and compliance. Correct performance of therapeutic exercises was facilitated with verbal and visual cuing. Billing: Penny: Therapeutic Exercise ([id number]): 1:1 time: 41 minutes (3 units: 38-52 mins) Total time: 45 minutes Tam Bose PT CNTHERAPY Observed: 10/21/2017 Status: COMPLETED Source: [place] 12:30 PM [facility] REPOSITORY OT/PT/Speech Visit (PTMCRM) GLENNROSALBA Jerald ([id number]) 1950 F Date Time Provider Department 10/21/17 12:30 PM TAM BOSE (PT) [facility] Date Time Provider Department Center 10/21/2017 12:30 PM [id number], REBECCA *[facility] Reason for Visit: Physical Therapy [503] Primary Visit Diagnosis:Chronic left shoulder pain [M25.512, G89.29] Allergies As of Date: 10/21/2017 (No Known Allergies) Date Reviewed: 09/09/2017 Reviewed by: Josefina Manjarrez LPN - Fully Assessed Prescriptions as of 10/21/2017 Sig: METHOTREXATE SODIUM 2.5 MG TA* Take 9-10tabs by mouth with f* PREDNISONE 5 MG TABLET Day 1=6tabs with food, Day 2=* ERGOCALCIFEROL (VITAMIN D2) 5* (take by mouth with food 3tim* FOLIC ACID 1 MG TABLET Take 1 tablet by mouth once d* ADALIMUMAB 40 MG/0.8 ML SUBCU* Inject 40 mg subcutaneously. * IBUPROFEN 200 MG TABLET Take 400 mg by mouth as neede* TRIAMCINOLONE ACETONIDE 0.1 %* Apply to affected area twice* LEVOTHYROXINE 112 MCG CAPSULE Take 100 mcg by mouth. Progress Notes: Tam Bose, PT 10/28/2017 7:16 AM Signed Episode Visit Count: 10 Therapist That Will Oversee The Plan Of Care: Tam Bose Start of Care Date: 09/17/17 Onset Date: 06/19/17 Plan of Care Certification Date: 09/17/17 Patient Identified by Name and Date of : Yes REHABILITATION AND SPORTS THERAPY PHYSICAL THERAPY TREATMENT NOTE ASSESSMENT: Rosalba Elizabeth demonstrated difficulty with prone scapular stabilization exercises. Patient with less pain complaints overall. Patient verbalizes doing more with the left arm. Continues to have some difficulty with abduction and external rotation. The patient will continue to benefit from continued skilled physical therapy for scapular stabilization and strengthening. PLAN FOR NEXT VISIT: cont with prone scapular stabilization SUBJECTIVE: Patient reports that the shoulder is sore- has been doing a lot of work with the arm. No difficulty with exercises. Pain Score: 4/10 Pain Location: Shoulder - Left Description: Sore Frequency: Continuous Post Treatment Pain Score: 2/10 Pain Location: Shoulder - Left Post Treatment Pain Description: Sore OBJECTIVE MEASURES WITH LEVEL OF FUNCTION: Patient is in no acute distress. Patient is challenged with prone shoulder exercises- gail flexion and horiz abd. TREATMENT: Therapeutic Exercise: 2: shoulder flexion stretch on wall 10 sec x 6 3: shoulder IR stretch 15 sxec x 4 4: shoulder external rotation stretch 10 sec x 6 5: UBE: seat 10, level 1.5 x 5 minutes- alternating directions ea minute 6: prone shoulder extension, rows, horiz abd x 10 reps ea* 7: prone shoulder adduction x 15 8: standing AROM: flexion, abduction, extension x 10 reps ea 9: prone 90-90 x 10 12: standing ext rot AROM behind head x 10 Skilled Intervention: Patient was educated in proper exercise technique and purpose for exercises. Reviewed and educated patient on additions/changes for home exercise program as above (*) Skilled judgment was provided in selection of appropriate interventions. Provided written instruction for home exercise program to facilitate proper performance and compliance. Correct performance of therapeutic exercises was facilitated with verbal and visual cuing. Billing: Hemalatha: Therapeutic Exercise (79717): 1:1 time: 41 minutes (3 units: 38-52 mins) Total time: 45 minutes Tam Bose PT CBC Collected: 10/21/2017 Status: F Source: [place] 10:22 AM [facility] REPOSITORY TYPE CODE TESTS RESULT OUT OF REFERENCE UNITS RANGE LAB WBC 3.70-11.00 k/uL WBC 5.31 LAB RBC 3.90-5.20 m/uL Low RBC 3.82 LAB HGB 11.5-15.5 g/dL Hemoglobin 12.5 LAB HCT 36.0-46.0 % Hematocrit 39.2 LAB MCV 80.0-100.0 fL MCV High 102.6 LAB MCH 26.0-34.0 pG MCH 32.7 LAB MCHC 30.5-36.0 g/dL MCHC 31.9 LAB RDWCV 11.5-15.0 % RDW-CV 13.3 LAB PLTCT 150-400 k/uL Platelet Count 338 LAB MPV 9.0-12.7 fL MPV 10.2 Performed By: #### CBC #### [facility] [address] [place] [address] #### WSR, CRP #### [place] [address] SED RATE WESTERGREN Collected: 10/21/2017 Status: F Source: [place] 10:22 AM [facility] REPOSITORY TYPE CODE TESTS RESULT OUT OF REFERENCE UNITS RANGE LAB WSR 0-20 mm/hr Sed Rate Westergren 9 Performed By: #### CBC #### [facility] [address] [place] [address] #### WSR, CRP #### [place] [address] C-REACTIVE PROTEIN Collected: 10/21/2017 Status: F Source: [place] 10:22 AM [facility] REPOSITORY TYPE CODE TESTS RESULT OUT OF REFERENCE UNITS RANGE LAB CRP <0.9 mg/dL C-Reactive 0.1 Protein Performed By: #### CBC #### [facility] [address] [place] [address] #### WSR, CRP #### [place] [address] VITAMIN D 25 HYDROXY Collected: 10/21/2017 Status: F Source: [place] 10:22 AM [facility] REPOSITORY TYPE CODE TESTS RESULT OUT OF REFERENCE UNITS RANGE LAB VITD 31.0-80.0 ng/mL Vitamin D 25 55.6 Hydroxy Result Comment: Classification of 25 OH Vitamin D status: Insufficiency/Moderate Deficiency: < or = 30 ng/mL Sufficiency/Optimal Levels: 31 to 80 ng/mL Toxicity: > 100 ng/mL Test performed by chemiluminescent immunoassay. Performed By: #### VITD #### [facility] [address] [place] [id number] CNTHERAPY Observed: 10/16/2017 Status: COMPLETED Source: [place] 10:00 AM [facility] REPOSITORY OT/PT/Speech Visit (PTMCRM) ROSALBA ELIZABETH ([id number]) 1950 F Date Time Provider Department 10/16/17 10:00 AM TAM BOSE (PT) [facility] Date Time Provider Department Center 10/16/2017 10:00 AM [id number], REBECCA [facility] Reason for Visit: PT Progress Note [5716] Primary Visit Diagnosis:Chronic left shoulder pain [M25.512, G89.29] Allergies As of Date: 10/16/2017 (No Known Allergies) Date Reviewed: 09/09/2017 Reviewed by: Josefina Manjarrez LPN - Fully Assessed Prescriptions as of 10/16/2017 Sig: METHOTREXATE SODIUM 2.5 MG TA* Take 9-10tabs by mouth with f* PREDNISONE 5 MG TABLET Day 1=6tabs with food, Day 2=* ERGOCALCIFEROL (VITAMIN D2) 5* (take by mouth with food 3tim* FOLIC ACID 1 MG TABLET Take 1 tablet by mouth once d* ADALIMUMAB 40 MG/0.8 ML SUBCU* Inject 40 mg subcutaneously. * IBUPROFEN 200 MG TABLET Take 400 mg by mouth as neede* TRIAMCINOLONE ACETONIDE 0.1 %* Apply to affected area twice* LEVOTHYROXINE 112 MCG CAPSULE Take 100 mcg by mouth. Progress Notes: Tam Bose, PT 10/17/2017 8:36 AM Signed Episode Visit Count: 9 Therapist That Will Oversee The Plan Of Care: Tam Bose Start of Care Date: 09/17/17 Onset Date: 06/19/17 Plan of Care Certification Date: 09/17/17 Patient Identified by Name and Date of : Yes REHABILITATION AND SPORTS THERAPY PHYSICAL THERAPY PROGRESS REPORT PLAN OF CARE UPDATE: Assessment: Rosalba Elizabeth exhibits difficulty with end ROM for abduction, flexion and external rotation as well as external rotation, abduction and scapular strength. She continues to be limited with closing the car door, heavy exertion, lifting and reaching overhead. She is progressing as expected towards her therapy goals as demonstrated by: home exercise program compliance, pain levels, documented subjective information on progress, documented objective information regarding ADL's, strength, range of motion, overall function and patient reported outcome measures and appointment compliance. She will benefit from continued skilled therapy requiring strengthening/stabilization and ROM exercises in order to further improve patients functional ability to use the left arm without difficulty. Functional gains: Improved sleep Increased endurance / activity tolerance Increased independence with HEP Increased ROM Increased strength Decreased intensity of pain Decreased frequency of pain Goals for Episode of Care: created on 09/17/17 through 11/07/17 Patent verbalizes ability to be able to open and close the car door with left arm. (Progressing- occ using the left arm; mostly uses R arm) Blaine in home exercise program. (MET) Patient will increase active ROM of Left shoulder by 15-20 degrees for flexion, abduction and external rotation to allow pt to improved performance of ADLs. (Progressing-not met) Patient will increase strength of Left shoulder and scapular musculature by at least 1/3 mm grade to allow for return to prior functional status. (Progressing) Perform sleeping on left side with decreased report of symptoms/pain in 3 weeks. (MET) Perform reaching into overhead cupboard without pain. (MET) Demonstrate improvement on functional score: Patient will improve his/her AM-PAC T-scale score by 4 points to indicate a Minimal Clinical Important Difference. (Progressing) G CODE REPORTING Based on clinical assessment and the score on the AM-PAC Scale Score Assessment Tool, the G code and corresponding severity modifiers are documented below. Evaluation: 09/17/2017 Current Status: Carrying, Moving and Handling Objects: G8984 CI 1-19% impaired Goal Status: Carrying, Moving and Handling Objects: G8985 CI 1-19% impaired Progress Report: 10/16/2017 Current Status: Carrying, Moving and Handling Objects: G8984 CI 1-19% impaired Goal Status: Carrying, Moving and Handling Objects: G8985 CI 1-19% impaired Planned Interventions, Frequency, and Duration: 1x/week, 3 weeks Total Number of Visits Planned: 3 Patient to be seen for Therapeutic exercise;Manual therapy;Therapeutic activities;Self-intermediate management;Patient/Family/Caregiver Education;ModalitiesE-Stim Unattended PLAN FOR NEXT VISIT: progress prone scapular stabilization exercises. Prognosis: Good Good due to: current objective clinical presentation;positive past response to therapy;good support system/ coping skills SUBJECTIVE: Patient reports that she did some painting yesterday and she didnt do too bad. Continues to have difficutly with closing the car door. Some soreness noted in the shoulder this date- more fatigue from painting. Patient reports that the shoulder is gradually getting better. No longer having difficulty sleeping because of pain in the shoulder. Able to reach better without pain. Continues to have difficulty with weight. Pain Score: 2/10 Pain Location: Shoulder - Left Description: Sore Frequency: Continuous Post Treatment Pain Score: No Change Pain Location: Shoulder - Left Post Treatment Pain Description: (fatigued) OBJECTIVE MEASURES WITH LEVEL OF FUNCTION: Posture / Alignment Posture: Increased thoracic kyphosis;Rounded shoulders L Shoulder Alignment: Elevated shoulder Shoulder Observations L Shoulder Palpation Tenderness: Bicipital groove UE AROM L Shoulder Extension: 50 Degrees L Shoulder Flex: 140 Degrees L Shoulder ABduction: 90 Degrees L Shoulder Internal Rotation: 80 Degrees L Shoulder External Rotation: 60 Degrees UE and Cervical Strength L Shoulder Extension: 4+/5 L Shoulder Flexion: 4/5 L Shoulder Abduction (C5): 4-/5 L Shoulder Internal Rotation: 4/5 L Shoulder External Rotation: 4-/5 L Shoulder Horizontal ABduction: 4/5 L Shoulder Horizontal ADduction: 4/5 L Scapular Retraction: 4/5 L Scapular Protraction: 4-/5 L Upper Trapezius: 4/5 L Middle Trapezius: 3+/5 L Lower Trapezius: 3+/5 L Rhomboid: 3+/5 Functional Strength Functional Strength: cont difficulty opening car door; lifting items overhead TREATMENT: Therapeutic Exercise: 2: shoulder flexion stretch on wall 10 sec x 6 3: shoulder IR stretch 15 sxec x 4 4: shoulder external rotation stretch 10 sec x 6 5: UBE: seat 10, level 1.5 x 5 minutes- alternating directions ea minute 6: prone shoulder extension, rows, horiz abd x 10 reps ea 8: standing AROM: flexion, abduction, extension x 10 reps ea* 12: standing ext rot AROM behind head x 10 16: sidelying abduction and extenal rotation with 2# x 10 reps ea 18: reassessment of status/goal reconciliation Skilled Intervention: Patient was educated in proper exercise technique and purpose for exercises. Reviewed and educated patient on additions/changes for home exercise program as above (*) Skilled judgment was provided in selection of appropriate interventions. Correct performance of therapeutic exercises was facilitated with verbal and visual cuing. Reassessment of status/goal reconciliation Review of ROM and strength results Billing: Hemalatha: Therapeutic Exercise ([id number]): 1:1 time: 41 minutes (3 units: 38-52 mins) Total time: 45 minutes Tam Bose PT PROGRESS Observed: 10/16/2017 Status: COMPLETED Source: [place] 6:55 AM [facility] REPOSITORY [facility] ID: [id number] Author: Tam (Pt) Karlie Service: (none) Author Type: Physical Therapist Type: Progress Notes Filed: 10/17/2017 8:36 AM Note Text: Episode Visit Count: 9 Therapist That Will Oversee The Plan Of Care: Tam Bose Start of Care Date: 09/17/17 Onset Date: 06/19/17 Plan of Care Certification Date: 09/17/17 Patient Identified by Name and Date of : Yes REHABILITATION AND SPORTS THERAPY PHYSICAL THERAPY PROGRESS REPORT PLAN OF CARE UPDATE: Assessment: Rosalba Elizabeth exhibits difficulty with end ROM for abduction, flexion and external rotation as well as external rotation, abduction and scapular strength. She continues to be limited with closing the car door, heavy exertion, lifting and reaching overhead. She is progressing as expected towards her therapy goals as demonstrated by: home exercise program compliance, pain levels, documented subjective information on progress, documented objective information regarding ADL's, strength, range of motion, overall function and patient reported outcome measures and appointment compliance. She will benefit from continued skilled therapy requiring strengthening/stabilization and ROM exercises in order to further improve patients functional ability to use the left arm without difficulty. Functional gains: Improved sleep Increased endurance / activity tolerance Increased independence with HEP Increased ROM Increased strength Decreased intensity of pain Decreased frequency of pain Goals for Episode of Care: created on 09/17/17 through 11/07/17 Patent verbalizes ability to be able to open and close the car door with left arm. (Progressing- occ using the left arm; mostly uses R arm) Blaine in home exercise program. (MET) Patient will increase active ROM of Left shoulder by 15-20 degrees for flexion, abduction and external rotation to allow pt to improved performance of ADLs. (Progressing-not met) Patient will increase strength of Left shoulder and scapular musculature by at least 1/3 mm grade to allow for return to prior functional status. (Progressing) Perform sleeping on left side with decreased report of symptoms/pain in 3 weeks. (MET) Perform reaching into overhead cupboard without pain. (MET) Demonstrate improvement on functional score: Patient will improve his/her AM-PAC T-scale score by 4 points to indicate a Minimal Clinical Important Difference. (Progressing) G CODE REPORTING Based on clinical assessment and the score on the AM-PAC Scale Score Assessment Tool, the G code and corresponding severity modifiers are documented below. Evaluation: 09/17/2017 Current Status: Carrying, Moving and Handling Objects: G8984 CI 1-19% impaired Goal Status: Carrying, Moving and Handling Objects: G8985 CI 1-19% impaired Progress Report: 10/16/2017 Current Status: Carrying, Moving and Handling Objects: G8984 CI 1-19% impaired Goal Status: Carrying, Moving and Handling Objects: G8985 CI 1-19% impaired Planned Interventions, Frequency, and Duration: 1x/week, 3 weeks Total Number of Visits Planned: 3 Patient to be seen for Therapeutic exercise;Manual therapy;Therapeutic activities;Self-intermediate management;Patient/Family/Caregiver Education;ModalitiesE-Stim Unattended PLAN FOR NEXT VISIT: progress prone scapular stabilization exercises. Prognosis: Good Good due to: current objective clinical presentation;positive past response to therapy;good support system/ coping skills SUBJECTIVE: Patient reports that she did some painting yesterday and she didnt do too bad. Continues to have difficutly with closing the car door. Some soreness noted in the shoulder this date- more fatigue from painting. Patient reports that the shoulder is gradually getting better. No longer having difficulty sleeping because of pain in the shoulder. Able to reach better without pain. Continues to have difficulty with weight. Pain Score: 2/10 Pain Location: Shoulder - Left Description: Sore Frequency: Continuous Post Treatment Pain Score: No Change Pain Location: Shoulder - Left Post Treatment Pain Description: (fatigued) OBJECTIVE MEASURES WITH LEVEL OF FUNCTION: Posture / Alignment Posture: Increased thoracic kyphosis;Rounded shoulders L Shoulder Alignment: Elevated shoulder Shoulder Observations L Shoulder Palpation Tenderness: Bicipital groove UE AROM L Shoulder Extension: 50 Degrees L Shoulder Flex: 140 Degrees L Shoulder ABduction: 90 Degrees L Shoulder Internal Rotation: 80 Degrees L Shoulder External Rotation: 60 Degrees UE and Cervical Strength L Shoulder Extension: 4+/5 L Shoulder Flexion: 4/5 L Shoulder Abduction (C5): 4-/5 L Shoulder Internal Rotation: 4/5 L Shoulder External Rotation: 4-/5 L Shoulder Horizontal ABduction: 4/5 L Shoulder Horizontal ADduction: 4/5 L Scapular Retraction: 4/5 L Scapular Protraction: 4-/5 L Upper Trapezius: 4/5 L Middle Trapezius: 3+/5 L Lower Trapezius: 3+/5 L Rhomboid: 3+/5 Functional Strength Functional Strength: cont difficulty opening car door; lifting items overhead TREATMENT: Therapeutic Exercise: 2: shoulder flexion stretch on wall 10 sec x 6 3: shoulder IR stretch 15 sxec x 4 4: shoulder external rotation stretch 10 sec x 6 5: UBE: seat 10, level 1.5 x 5 minutes- alternating directions ea minute 6: prone shoulder extension, rows, horiz abd x 10 reps ea 8: standing AROM: flexion, abduction, extension x 10 reps ea* 12: standing ext rot AROM behind head x 10 16: sidelying abduction and extenal rotation with 2# x 10 reps ea 18: reassessment of status/goal reconciliation Skilled Intervention: Patient was educated in proper exercise technique and purpose for exercises. Reviewed and educated patient on additions/changes for home exercise program as above (*) Skilled judgment was provided in selection of appropriate interventions. Correct performance of therapeutic exercises was facilitated with verbal and visual cuing. Reassessment of status/goal reconciliation Review of ROM and strength results Billing: Hemalatha: Therapeutic Exercise ([id number]): 1:1 time: 41 minutes (3 units: 38-52 mins) Total time: 45 minutes Tam Bose PT CNTHERAPY Observed: 10/13/2017 Status: COMPLETED Source: [place] 9:30 AM [facility] REPOSITORY OT/PT/Speech Visit (PTMCRM) ROSALBA ELIZABETH ([id number]) 1950 F Date Time Provider Department 10/13/17 9:30 AM TAM BOSE (PT) [facility] Date Time Provider Department Center 10/13/2017 9:30 AM [id number], REBECCA *[facility] Reason for Visit: Physical Therapy [503] Primary Visit Diagnosis:Chronic left shoulder pain [M25.512, G89.29] Allergies As of Date: 10/13/2017 (No Known Allergies) Date Reviewed: 09/09/2017 Reviewed by: Josefina Manjarrez LPN - Fully Assessed Prescriptions as of 10/13/2017 Sig: METHOTREXATE SODIUM 2.5 MG TA* Take 9-10tabs by mouth with f* PREDNISONE 5 MG TABLET Day 1=6tabs with food, Day 2=* ERGOCALCIFEROL (VITAMIN D2) 5* (take by mouth with food 3tim* FOLIC ACID 1 MG TABLET Take 1 tablet by mouth once d* ADALIMUMAB 40 MG/0.8 ML SUBCU* Inject 40 mg subcutaneously. * IBUPROFEN 200 MG TABLET Take 400 mg by mouth as neede* TRIAMCINOLONE ACETONIDE 0.1 %* Apply to affected area twice* LEVOTHYROXINE 112 MCG CAPSULE Take 100 mcg by mouth. Progress Notes: Tam Bose PT 10/13/2017 10:32 AM Signed Episode Visit Count: 8 Therapist That Will Oversee The Plan Of Care: Tam Bose Start of Care Date: 09/17/17 Onset Date: 06/19/17 Plan of Care Certification Date: 09/17/17 Patient Identified by Name and Date of : Yes No Data Recorded REHABILITATION AND SPORTS THERAPY PHYSICAL THERAPY TREATMENT NOTE ASSESSMENT: Rosalba [place] demonstrated difficulty with external rotation movements and improvements in overall pain complaints. Patient notes that closing the car door is easier for her but that it remains painful. Having less pain overall Did not perform estim this date to monitor response to treatment without estim. Patient continues to be challenged with abduction and external rotation against resistance. Patient with some discomfort with prone rows in the anterior aspect of the shoulder. The patient will continue to benefit from continued skilled physical therapy for strengthening and stabilization and reassessment of status. PLAN FOR NEXT VISIT: reassess status SUBJECTIVE: Patient reports that she was stiff sitting in the car yesterday and was having a lot of stiffness. Trying to stretch in the car. Pain levels are better. Patient reports that she continues to get catching in the shoulder with certain movements. Pain Score: 3/10 Pain Location: Shoulder - Left Description: Sore Frequency: Continuous Post Treatment Pain Score: 0/10 Pain Location: Shoulder - Left OBJECTIVE MEASURES WITH LEVEL OF FUNCTION: Patient is challenged with lifting 2# weight into external rotation. Patient is challenged with external rotation beyond 60-70 degrees TREATMENT: Therapeutic Exercise: 2: shoulder flexion stretch on wall 10 sec x 6 3: shoulder IR stretch 15 sxec x 4 4: shoulder external rotation stretch 10 sec x 6 5: UBE: seat 10, level 1.3 x 4 minutes- alternating directions ea minute 6: prone shoulder extension, rows, horiz abd x 10 reps ea* 7: supine shoulder flexion with 2# x 10 9: supine shoulder external rotation with 2# x 10 10: supine shoulder IR with 2# x 10 11: supine chest press 2# x 10 16: sidelying abduction and extenal rotation with 2# x 10 reps ea Skilled Intervention: Patient was educated in proper exercise technique and purpose for exercises. Reviewed and educated patient on additions/changes for home exercise program as above (*) Skilled judgment was provided in selection of appropriate interventions. Provided written instruction for home exercise program to facilitate proper performance and compliance. Correct performance of therapeutic exercises was facilitated with verbal and visual cuing. Billing: Hemalatha: Therapeutic Exercise ([id number]): 1:1 time: 39 minutes (3 units: 38-52 mins) Total time: 42 minutes Tam Bose PT PROGRESS Observed: 10/13/2017 Status: COMPLETED Source: [place] 7:53 AM [facility] REPOSITORY [facility] ID: [id number] Author: Tam (Pt) Karlie Service: (none) Author Type: Physical Therapist Type: Progress Notes Filed: 10/13/2017 10:32 AM Note Text: Episode Visit Count: 8 Therapist That Will Oversee The Plan Of Care: Tam Bose Start of Care Date: 09/17/17 Onset Date: 06/19/17 Plan of Care Certification Date: 09/17/17 Patient Identified by Name and Date of : Yes No Data Recorded REHABILITATION AND SPORTS THERAPY PHYSICAL THERAPY TREATMENT NOTE ASSESSMENT: Rosalba Elizabeth demonstrated difficulty with external rotation movements and improvements in overall pain complaints. Patient notes that closing the car door is easier for her but that it remains painful. Having less pain overall Did not perform estim this date to monitor response to treatment without estim. Patient continues to be challenged with abduction and external rotation against resistance. Patient with some discomfort with prone rows in the anterior aspect of the shoulder. The patient will continue to benefit from continued skilled physical therapy for strengthening and stabilization and reassessment of status. PLAN FOR NEXT VISIT: reassess status SUBJECTIVE: Patient reports that she was stiff sitting in the car yesterday and was having a lot of stiffness. Trying to stretch in the car. Pain levels are better. Patient reports that she continues to get catching in the shoulder with certain movements. Pain Score: 3/10 Pain Location: Shoulder - Left Description: Sore Frequency: Continuous Post Treatment Pain Score: 0/10 Pain Location: Shoulder - Left OBJECTIVE MEASURES WITH LEVEL OF FUNCTION: Patient is challenged with lifting 2# weight into external rotation. Patient is challenged with external rotation beyond 60-70 degrees TREATMENT: Therapeutic Exercise: 2: shoulder flexion stretch on wall 10 sec x 6 3: shoulder IR stretch 15 sxec x 4 4: shoulder external rotation stretch 10 sec x 6 5: UBE: seat 10, level 1.3 x 4 minutes- alternating directions ea minute 6: prone shoulder extension, rows, horiz abd x 10 reps ea* 7: supine shoulder flexion with 2# x 10 9: supine shoulder external rotation with 2# x 10 10: supine shoulder IR with 2# x 10 11: supine chest press 2# x 10 16: sidelying abduction and extenal rotation with 2# x 10 reps ea Skilled Intervention: Patient was educated in proper exercise technique and purpose for exercises. Reviewed and educated patient on additions/changes for home exercise program as above (*) Skilled judgment was provided in selection of appropriate interventions. Provided written instruction for home exercise program to facilitate proper performance and compliance. Correct performance of therapeutic exercises was facilitated with verbal and visual cuing. Billing: Hemalatha: Therapeutic Exercise (30231): 1:1 time: 39 minutes (3 units: 38-52 mins) Total time: 42 minutes Tam Bose PT CNTHERAPY Observed: 10/09/2017 Status: COMPLETED Source: [place] 9:15 AM [facility] OTHER CAMPUS REPOSITORY OT/PT/Speech Visit (PTMCRM) ROSALBA ELIZABETH ([id number]) 1950 F Date Time Provider Department 10/09/17 9:15 AM TAM BOSE (PT) PTMCRM Date Time Provider Department Center 10/09/2017 9:15 AM [id number], REBECCA *PTMCRM [facility] Reason for Visit: Physical Therapy [503] Primary Visit Diagnosis:Chronic left shoulder pain [M25.512, G89.29] Allergies As of Date: 10/09/2017 (No Known Allergies) Date Reviewed: 09/09/2017 Reviewed by: Josefina Manjarrez LPN - Fully Assessed Prescriptions as of 10/09/2017 Sig: METHOTREXATE SODIUM 2.5 MG TA* Take 9-10tabs by mouth with f* PREDNISONE 5 MG TABLET Day 1=6tabs with food, Day 2=* ERGOCALCIFEROL (VITAMIN D2) 5* (take by mouth with food 3tim* FOLIC ACID 1 MG TABLET Take 1 tablet by mouth once d* ADALIMUMAB 40 MG/0.8 ML SUBCU* Inject 40 mg subcutaneously. * IBUPROFEN 200 MG TABLET Take 400 mg by mouth as neede* TRIAMCINOLONE ACETONIDE 0.1 %* Apply to affected area twice* LEVOTHYROXINE 112 MCG CAPSULE Take 100 mcg by mouth. Progress Notes: Tam Bose, PT 10/09/2017 1:39 PM Signed Episode Visit Count: 7 Therapist That Will Oversee The Plan Of Care: Tam Bose Start of Care Date: 09/17/17 Onset Date: 06/19/17 Plan of Care Certification Date: 09/17/17 Patient Identified by Name and Date of : Yes No Data Recorded REHABILITATION AND SPORTS THERAPY PHYSICAL THERAPY TREATMENT NOTE ASSESSMENT: Rosalba Elizabeth demonstrated difficulty with external rotation and abduction against resistance. Patient noted to have left arm shaking with abduction. Patient notes that she is starting to feel better moving in the pool. Continues to have difficulty with opening the car door. Patient with less overall pain complaints today. No pain after ice and estim. The patient will continue to benefit from continued skilled physical therapy for strengthening and stabilization. PLAN FOR NEXT VISIT: cont with scapular stabilization Reassess status in near future. SUBJECTIVE: Patient reports that she is feeling better. Patient reports that she is having difficulty with front crawl. Pain Score: 5/10 Pain Location: Shoulder - Left Description: Sore Frequency: Continuous Post Treatment Pain Score: 0/10 Pain Location: Shoulder - Left OBJECTIVE MEASURES WITH LEVEL OF FUNCTION: Patient able to tolerate external rotation against resistance to 45 degrees Patient able to flex shoulder to 120 degrees against resistance. TREATMENT: Therapeutic Exercise: 2: shoulder flexion stretch on wall 10 sec x 6 3: UT stretch on L 15 sec x 3 5: UBE: seat 10, level 1.3 x 4 minutes- alternating directions ea minute 7: supine shoulder flexion with 2# x 10 9: supine shoulder external rotation with 2# x 10 10: supine shoulder IR with 2# x 10 11: supine chest press 2@ x 10 14: shoulder theraband-orange: abduction x 10 15: postural theraband-orange: rows and pull downs x 10 reps ea 16: sidelying abduction and extenal rotation with 2# x 10 reps ea Skilled Intervention: Patient was educated in proper exercise technique and purpose for exercises. Skilled judgment was provided in selection of appropriate interventions. Correct performance of therapeutic exercises was facilitated with verbal, visual and tactile cuing. Modalities: E-Stim Unattended (CP x 14 minutes with IFC to L shoulder) Body Region Treated - E-Stim Unattended: L shoulder Patient Position: seated with arm elevated Current: IFC Channels: 2 Intensity: 11 volts Minutes: 14 See flowsheet for details regarding treatment. Skilled Intervention: Proper administration and selection of modality based on clinical presentation, deficits, and needs. Patient response monitored throughout treatment. Billing: Penny: Therapeutic Exercise ([id number]): 1:1 time: 38 minutes (3 units: 38-52 mins) Modalities: E-Stim Unattended (31449): 1 unit(s) Total time: 58 minutes Tam Bose PT PROGRESS Observed: 10/09/2017 Status: COMPLETED Source: [place] 6:53 AM [facility] OTHER CAMPUS REPOSITORY HNO ID: [id number] Author: Tam (PtAngel Bose Service: (none) Author Type: Physical Therapist Type: Progress Notes Filed: 10/09/2017 1:39 PM Note Text: Episode Visit Count: 7 Therapist That Will Oversee The Plan Of Care: Tam Bose Start of Care Date: 09/17/17 Onset Date: 06/19/17 Plan of Care Certification Date: 09/17/17 Patient Identified by Name and Date of : Yes No Data Recorded REHABILITATION AND SPORTS THERAPY PHYSICAL THERAPY TREATMENT NOTE ASSESSMENT: Rosalba Elizabeth demonstrated difficulty with external rotation and abduction against resistance. Patient noted to have left arm shaking with abduction. Patient notes that she is starting to feel better moving in the pool. Continues to have difficulty with opening the car door. Patient with less overall pain complaints today. No pain after ice and estim. The patient will continue to benefit from continued skilled physical therapy for strengthening and stabilization. PLAN FOR NEXT VISIT: cont with scapular stabilization Reassess status in near future. SUBJECTIVE: Patient reports that she is feeling better. Patient reports that she is having difficulty with front crawl. Pain Score: 5/10 Pain Location: Shoulder - Left Description: Sore Frequency: Continuous Post Treatment Pain Score: 0/10 Pain Location: Shoulder - Left OBJECTIVE MEASURES WITH LEVEL OF FUNCTION: Patient able to tolerate external rotation against resistance to 45 degrees Patient able to flex shoulder to 120 degrees against resistance. TREATMENT: Therapeutic Exercise: 2: shoulder flexion stretch on wall 10 sec x 6 3: UT stretch on L 15 sec x 3 5: UBE: seat 10, level 1.3 x 4 minutes- alternating directions ea minute 7: supine shoulder flexion with 2# x 10 9: supine shoulder external rotation with 2# x 10 10: supine shoulder IR with 2# x 10 11: supine chest press 2@ x 10 14: shoulder theraband-orange: abduction x 10 15: postural theraband-orange: rows and pull downs x 10 reps ea 16: sidelying abduction and extenal rotation with 2# x 10 reps ea Skilled Intervention: Patient was educated in proper exercise technique and purpose for exercises. Skilled judgment was provided in selection of appropriate interventions. Correct performance of therapeutic exercises was facilitated with verbal, visual and tactile cuing. Modalities: E-Stim Unattended (CP x 14 minutes with IFC to L shoulder) Body Region Treated - E-Stim Unattended: L shoulder Patient Position: seated with arm elevated Current: IFC Channels: 2 Intensity: 11 volts Minutes: 14 See flowsheet for details regarding treatment. Skilled Intervention: Proper administration and selection of modality based on clinical presentation, deficits, and needs. Patient response monitored throughout treatment. Billing: Penny: Therapeutic Exercise ([id number]): 1:1 time: 38 minutes (3 units: 38-52 mins) Modalities: E-Stim Unattended (19778): 1 unit(s) Total time: 58 minutes Tam Bose PT CNTHERAPY Observed: 10/07/2017 Status: COMPLETED Source: [place] 10:00 AM CLINIC OTHER CAMPUS REPOSITORY OT/PT/Speech Visit (PTMCRM) ROSALBA ELIZABETH ([id number]) 1950 F Date Time Provider Department 10/07/17 10:00 AM TAM BOSE (PT) [facility] Date Time Provider Department Center 10/07/2017 10:00 AM [id number], REBECCA *PTMM [facility] Reason for Visit: Physical Therapy [503] Primary Visit Diagnosis:Chronic left shoulder pain [M25.512, G89.29] Allergies As of Date: 10/07/2017 (No Known Allergies) Date Reviewed: 09/09/2017 Reviewed by: Josefina Manjarrez LPN - Fully Assessed Prescriptions as of 10/07/2017 Sig: METHOTREXATE SODIUM 2.5 MG TA* Take 9-10tabs by mouth with f* PREDNISONE 5 MG TABLET Day 1=6tabs with food, Day 2=* ERGOCALCIFEROL (VITAMIN D2) 5* (take by mouth with food 3tim* FOLIC ACID 1 MG TABLET Take 1 tablet by mouth once d* ADALIMUMAB 40 MG/0.8 ML SUBCU* Inject 40 mg subcutaneously. * IBUPROFEN 200 MG TABLET Take 400 mg by mouth as neede* TRIAMCINOLONE ACETONIDE 0.1 %* Apply to affected area twice* LEVOTHYROXINE 112 MCG CAPSULE Take 100 mcg by mouth. Progress Notes: Tam Bose, PT 10/07/2017 12:18 PM Signed Episode Visit Count: 6 Therapist That Will Oversee The Plan Of Care: Tam Bose Start of Care Date: 09/17/17 Onset Date: 06/19/17 Plan of Care Certification Date: 09/17/17 Patient Identified by Name and Date of : Yes No Data Recorded REHABILITATION AND SPORTS THERAPY PHYSICAL THERAPY TREATMENT NOTE ASSESSMENT: Rosalba Marques Glenn demonstrated difficulty with opening the car door and movements out to the side ( abduction). Patient notes that she was sore in the arm after a busy weekend with graduation and . Patient notes that she was sore in the shoulder after hugging a lot of people. Patient is challenged with external rotation and abduction strengthening. Patient reports feeling better after manual therapy. Patient reports that estim and CP also seem to help. Patient with less palpable tightness of the biceps musculature noted this date. Patient remains restricted to about 150 degrees of shoulder flexion in supine. The patient will continue to benefit from continued skilled physicaltherapy for scapular stabilization. PLAN FOR NEXT VISIT: cont with scapular stabilization and strengthening SUBJECTIVE: Patient reports that with all she had going on over the weekend and her neck and shoulder are sore. Pain Score: 8/10 Pain Location: Shoulder - Left (Neck) Description: Sore;Aching Frequency: Continuous Post Treatment Pain Score: 2/10 Pain Location: Shoulder - Left Post Treatment Pain Description: Sore OBJECTIVE MEASURES WITH LEVEL OF FUNCTION: Patients AROM in supine to 150 degrees of flexion. TREATMENT: Therapeutic Exercise: 2: shoulder flexion stretch on wall 10 sec x 6 3: UT stretch on L 15 sec x 3* 4: shoulder external rotation stretch 10 sec x 6 5: UBE: seat 10, level 1.1 x 4 minutes- alternating directions ea minute 6: levator stretch on L 15 sec x 3* 8: biceps stretch 10 sec x 6 11: shoulder IR stretch with towel 3 x 15 sec 12: shoulder theraband-orange: IR and external rotation x 10 reps ea 13: shoulder theraband-orange: adduction and extension x 10 reps ea 14: shoulder theraband-orange: abduction x 10* 15: postural theraband-orange: rows and pull downs x 10 reps ea* Skilled Intervention: Patient was educated in proper exercise technique and purpose for exercises. Reviewed and educated patient on additions/changes for home exercise program as above (*) Skilled judgment was provided in selection of appropriate interventions. Provided written instruction for home exercise program to facilitate proper performance and compliance. Correct performance of therapeutic exercises was facilitated with verbal and visual cuing. Educated patient on rationale for performing exercises in regards to ROM and function Manual Therapy: 1: STM to the anterior shoulder joint/tendons and L biceps musculature with patient in supine to decrease muscle tightness and pain. Skilled Intervention: Manual skills to improve joint mobility, ROM, and decrease pain. Utilized anatomy knowledge of the therapist, and assessment of patient's response to intervention. Modalities: E-Stim Unattended (CP x 14 minutes with IFC to L shoulder) Body Region Treated - E-Stim Unattended: L shoulder Patient Position: seated with arm elevated Current: IFC Channels: 2 Intensity: 9 volts Minutes: 14 See flowsheet for details regarding treatment. Skilled Intervention: Proper administration and selection of modality based on clinical presentation, deficits, and needs. Patient response monitored throughout treatment. Billing: Penny: Therapeutic Exercise ([id number]): 1:1 time: 32 minutes (2 units: 23-37 mins) Manual Therapy ([id number]): 1:1 time: 8 minutes (1 unit: 8-22 mins) Modalities: E-Stim Unattended (48816): 14 unit(s) Total time: 58 minutes Tam Bose PT PROGRESS Observed: 10/07/2017 Status: COMPLETED Source: [place] 9:46 AM [facility] OTHER CAMPUS REPOSITORY O ID: [id number] Author: Tam (Pt) Karlie Service: (none) Author Type: Physical Therapist Type: Progress Notes Filed: 10/07/2017 12:18 PM Note Text: Episode Visit Count: 6 Therapist That Will Oversee The Plan Of Care: Tam Bose Start of Care Date: 09/17/17 Onset Date: 06/19/17 Plan of Care Certification Date: 09/17/17 Patient Identified by Name and Date of : Yes No Data Recorded REHABILITATION AND SPORTS THERAPY PHYSICAL THERAPY TREATMENT NOTE ASSESSMENT: Rosalba Elizabeth demonstrated difficulty with opening the car door and movements out to the side ( abduction). Patient notes that she was sore in the arm after a busy weekend with graduation and . Patient notes that she was sore in the shoulder after hugging a lot of people. Patient is challenged with external rotation and abduction strengthening. Patient reports feeling better after manual therapy. Patient reports that estim and CP also seem to help. Patient with less palpable tightness of the biceps musculature noted this date. Patient remains restricted to about 150 degrees of shoulder flexion in supine. The patient will continue to benefit from continued skilled physical therapy for scapular stabilization. PLAN FOR NEXT VISIT: cont with scapular stabilization and strengthening SUBJECTIVE: Patient reports that with all she had going on over the weekend and her neck and shoulder are sore. Pain Score: 8/10 Pain Location: Shoulder - Left (Neck) Description: Sore;Aching Frequency: Continuous Post Treatment Pain Score: 2/10 Pain Location: Shoulder - Left Post Treatment Pain Description: Sore OBJECTIVE MEASURES WITH LEVEL OF FUNCTION: Patients AROM in supine to 150 degrees of flexion. TREATMENT: Therapeutic Exercise: 2: shoulder flexion stretch on wall 10 sec x 6 3: UT stretch on L 15 sec x 3* 4: shoulder external rotation stretch 10 sec x 6 5: UBE: seat 10, level 1.1 x 4 minutes- alternating directions ea minute 6: levator stretch on L 15 sec x 3* 8: biceps stretch 10 sec x 6 11: shoulder IR stretch with towel 3 x 15 sec 12: shoulder theraband-orange: IR and external rotation x 10 reps ea 13: shoulder theraband-orange: adduction and extension x 10 reps ea 14: shoulder theraband-orange: abduction x 10* 15: postural theraband-orange: rows and pull downs x 10 reps ea* Skilled Intervention: Patient was educated in proper exercise technique and purpose for exercises. Reviewed and educated patient on additions/changes for home exercise program as above (*) Skilled judgment was provided in selection of appropriate interventions. Provided written instruction for home exercise program to facilitate proper performance and compliance. Correct performance of therapeutic exercises was facilitated with verbal and visual cuing. Educated patient on rationale for performing exercises in regards to ROM and function Manual Therapy: 1: STM to the anterior shoulder joint/tendons and L biceps musculature with patient in supine to decrease muscle tightness and pain. Skilled Intervention: Manual skills to improve joint mobility, ROM, and decrease pain. Utilized anatomy knowledge of the therapist, and assessment of patient's response to intervention. Modalities: E-Stim Unattended (CP x 14 minutes with IFC to L shoulder) Body Region Treated - E-Stim Unattended: L shoulder Patient Position: seated with arm elevated Current: IFC Channels: 2 Intensity: 9 volts Minutes: 14 See flowsheet for details regarding treatment. Skilled Intervention: Proper administration and selection of modality based on clinical presentation, deficits, and needs. Patient response monitored throughout treatment. Billing: Hemalatha: Therapeutic Exercise ([id number]): 1:1 time: 32 minutes (2 units: 23-37 mins) Manual Therapy ([id number]): 1:1 time: 8 minutes (1 unit: 8-22 mins) Modalities: E-Stim Unattended ([id number]): 14 unit(s) Total time: 58 minutes Tam Bose PT CNTHERAPY Observed: 10/01/2017 Status: COMPLETED Source: [place] 8:45 AM CLINIC OTHER CAMPUS REPOSITORY OT/PT/Speech Visit (PTMCRM) ROSALBA ELIZABETH ([id number]) 1950 F Date Time Provider Department 10/01/17 8:45 AM TAM BOSE (PT) [facility] Date Time Provider Department [place] 10/01/2017 8:45 AM [id number], REBECCA *[facility] Reason for Visit: Physical Therapy [503] Primary Visit Diagnosis:Chronic left shoulder pain [M25.512, G89.29] Allergies As of Date: 10/01/2017 (No Known Allergies) Date Reviewed: 09/09/2017 Reviewed by: Josefina Manjarrez LPN - Fully Assessed Prescriptions as of 10/01/2017 Sig: PREDNISONE 5 MG TABLET Day 1=6tabs with food, Day 2=* ERGOCALCIFEROL (VITAMIN D2) 5* (take by mouth with food 3tim* FOLIC ACID 1 MG TABLET Take 1 tablet by mouth once d* METHOTREXATE SODIUM 2.5 MG TA* Take 9-10tabs by mouth with f* ADALIMUMAB 40 MG/0.8 ML SUBCU* Inject 40 mg subcutaneously. * IBUPROFEN 200 MG TABLET Take 400 mg by mouth as neede* TRIAMCINOLONE ACETONIDE 0.1 %* Apply to affected area twice* LEVOTHYROXINE 112 MCG CAPSULE Take 100 mcg by mouth. Progress Notes: Tam Bose, PT 10/01/2017 11:13 AM Signed Episode Visit Count: 5 Therapist That Will Oversee The Plan Of Care: Tam Bose Start of Care Date: 09/17/17 Onset Date: 06/19/17 Plan of Care Certification Date: 09/17/17 Patient Identified by Name and Date of : Yes REHABILITATION AND SPORTS THERAPY PHYSICAL THERAPY TREATMENT NOTE ASSESSMENT: Rosalba Elizabeth demonstrated tightness of the biceps musculature and associated pain complaints in the anterior shoulder this date. Patient with high pain complaints noted at start of PT session. Patient remains challenged with external rotation strengthening. She reports that stretches improve the pain and feel good. Patient continues to note feeling better after estim and CP. She continues to report catching in the shoulder with abduction ROM. The patient will continue to benefit from continued skilled physical therapy for strengthening and manual as needed to decrease pain and improve funciton. PLAN FOR NEXT VISIT: assess response to manual techniques. Continue as needed. SUBJECTIVE: Patient reports that the shoulder is tender today. Patient reports that she has discomfort in the anterior aspect of the shoulder. Pain Score: 7/10 Pain Location: Shoulder - Left Description: Sore (tender) Frequency: Continuous Post Treatment Pain Score: 2/10 Pain Location: Shoulder - Left Post Treatment Pain Description: Sore OBJECTIVE MEASURES WITH LEVEL OF FUNCTION: Patient with muscle tightness noted of the left biceps musculature and tendon. TREATMENT: Therapeutic Exercise: 2: shoulder flexion stretch on wall 10 sec x 6* 4: shoulder external rotation stretch 10 sec x 6* 5: UBE: seat 10, level 1.1 x 4 minutes- alternating directions ea minute 8: biceps stretch 10 sec x 6* 11: shoulder IR stretch with towel 3 x 15 sec 12: shoulder theraband-orange: IR and external rotation x 10 reps ea 13: shoulder theraband-orange: adduction and extension x 10 reps ea* Skilled Intervention: Patient was educated in proper exercise technique and purpose for exercises. Reviewed and educated patient on additions/changes for home exercise program as above (*) Skilled judgment was provided in selection of appropriate interventions. Provided written instruction for home exercise program to facilitate proper performance and compliance. Correct performance of therapeutic exercises was facilitated with verbal and visual cuing. Manual Therapy: 1: STM to the anterior shoulder joint/tendons and L biceps musculature with patient in supine to decrease muscle tightness and pain. Skilled Intervention: Manual skills to improve joint mobility, ROM, and decrease pain. Utilized anatomy knowledge of the therapist, and assessment of patient's response to intervention. Modalities: E-Stim Unattended (CP x 14 minutes with IFC to L shoulder) Body Region Treated - E-Stim Unattended: L shoulder Patient Position: seated with arm elevated Current: IFC Channels: 2 Intensity: 13 volts Minutes: 14 See flowsheet for details regarding treatment. Skilled Intervention: Proper administration and selection of modality based on clinical presentation, deficits, and needs. Patient response monitored throughout treatment. Billing: Penny: Therapeutic Exercise ([id number]): 1:1 time: 30 minutes (2 units: 23-37 mins) Manual Therapy ([id number]): 1:1 time: 10 minutes (1 unit: 8-22 mins) Modalities: E-Stim Unattended ([id number]): 1 unit(s) Total time: 58 minutes Tam Bose PT PROGRESS Observed: 10/01/2017 Status: COMPLETED Source: [place] 7:57 AM CLINIC OTHER CAMPUS REPOSITORY O ID: [id number] Author: Tam (Pt) Karlie Service: (none) Author Type: Physical Therapist Type: Progress Notes Filed: 10/01/2017 11:13 AM Note Text: Episode Visit Count: 5 Therapist That Will Oversee The Plan Of Care: Tam Bose Start of Care Date: 09/17/17 Onset Date: 06/19/17 Plan of Care Certification Date: 09/17/17 Patient Identified by Name and Date of : Yes REHABILITATION AND SPORTS THERAPY PHYSICAL THERAPY TREATMENT NOTE ASSESSMENT: Rosalba Jerald Elizabeth demonstrated tightness of the biceps musculature and associated pain complaints in the anterior shoulder this date. Patient with high pain complaints noted at start of PT session. Patient remains challenged with external rotation strengthening. She reports that stretches improve the pain and feel good. Patient continues to note feeling better after estim and CP. She continues to report catching in the shoulder with abduction ROM. The patient will continue to benefit from continued skilled physical therapy for strengthening and manual as needed to decrease pain and improve funciton. PLAN FOR NEXT VISIT: assess response to manual techniques. Continue as needed. SUBJECTIVE: Patient reports that the shoulder is tender today. Patient reports that she has discomfort in the anterior aspect of the shoulder. Pain Score: 7/10 Pain Location: Shoulder - Left Description: Sore (tender) Frequency: Continuous Post Treatment Pain Score: 2/10 Pain Location: Shoulder - Left Post Treatment Pain Description: Sore OBJECTIVE MEASURES WITH LEVEL OF FUNCTION: Patient with muscle tightness noted of the left biceps musculature and tendon. TREATMENT: Therapeutic Exercise: 2: shoulder flexion stretch on wall 10 sec x 6* 4: shoulder external rotation stretch 10 sec x 6* 5: UBE: seat 10, level 1.1 x 4 minutes- alternating directions ea minute 8: biceps stretch 10 sec x 6* 11: shoulder IR stretch with towel 3 x 15 sec 12: shoulder theraband-orange: IR and external rotation x 10 reps ea 13: shoulder theraband-orange: adduction and extension x 10 reps ea* Skilled Intervention: Patient was educated in proper exercise technique and purpose for exercises. Reviewed and educated patient on additions/changes for home exercise program as above (*) Skilled judgment was provided in selection of appropriate interventions. Provided written instruction for home exercise program to facilitate proper performance and compliance. Correct performance of therapeutic exercises was facilitated with verbal and visual cuing. Manual Therapy: 1: STM to the anterior shoulder joint/tendons and L biceps musculature with patient in supine to decrease muscle tightness and pain. Skilled Intervention: Manual skills to improve joint mobility, ROM, and decrease pain. Utilized anatomy knowledge of the therapist, and assessment of patient's response to intervention. Modalities: E-Stim Unattended (CP x 14 minutes with IFC to L shoulder) Body Region Treated - E-Stim Unattended: L shoulder Patient Position: seated with arm elevated Current: IFC Channels: 2 Intensity: 13 volts Minutes: 14 See flowsheet for details regarding treatment. Skilled Intervention: Proper administration and selection of modality based on clinical presentation, deficits, and needs. Patient response monitored throughout treatment. Billing: Penny: Therapeutic Exercise ([id number]): 1:1 time: 30 minutes (2 units: 23-37 mins) Manual Therapy ([id number]): 1:1 time: 10 minutes (1 unit: 8-22 mins) Modalities: E-Stim Unattended (52483): 1 unit(s) Total time: 58 minutes Tam Bose PT CNTHERAPY Observed: 09/30/2017 Status: COMPLETED Source: [place] 8:30 AM CLINIC OTHER CAMPUS REPOSITORY OT/PT/Speech Visit (PTMCRM) ROSALBA ELIZABETH ([id number]) 1950 F Date Time Provider Department 09/30/17 8:30 AM [facility] Time Provider Department Center 09/30/2017 8:30 AM [id number], REBECCA *[facility] Reason for Visit: Physical Therapy [503] Primary Visit Diagnosis:Chronic left shoulder pain [M25.512, G89.29] Allergies As of Date: 09/30/2017 (No Known Allergies) Date Reviewed: 09/09/2017 Reviewed by: Josefina Manjarrez LPN - Fully Assessed Prescriptions as of 09/30/2017 Sig: PREDNISONE 5 MG TABLET Day 1=6tabs with food, Day 2=* ERGOCALCIFEROL (VITAMIN D2) 5* (take by mouth with food 3tim* FOLIC ACID 1 MG TABLET Take 1 tablet by mouth once d* METHOTREXATE SODIUM 2.5 MG TA* Take 9-10tabs by mouth with f* ADALIMUMAB 40 MG/0.8 ML SUBCU* Inject 40 mg subcutaneously. * IBUPROFEN 200 MG TABLET Take 400 mg by mouth as neede* TRIAMCINOLONE ACETONIDE 0.1 %* Apply to affected area twice* LEVOTHYROXINE 112 MCG CAPSULE Take 100 mcg by mouth. Progress Notes: Tam Bose PT 09/30/2017 10:01 AM Signed Episode Visit Count: 4 Therapist That Will Oversee The Plan Of Care: Tam Bose Start of Care Date: 09/17/17 Onset Date: 06/19/17 Plan of Care Certification Date: 09/17/17 Patient Identified by Name and Date of : Yes REHABILITATION AND SPORTS THERAPY PHYSICAL THERAPY TREATMENT NOTE ASSESSMENT: Rosalba Elizabeth demonstrated difficulty with abduction and external rotation ROM. Patient reports that she feels like something is Catching in the shoulder with abduction and external rotation movements. Patient demonstrates good technique with previous HEP. Patient with more tension noted in the shoulder this date- patient notes that she had some teeth pulled last week and was very tense in the shoulder and mouth area. Patient is challenged with external rotation strengthening. Patient reports that distraction of the shoulder feels good. Patient feels better with estim. The patient will continue to benefit from continued skilled physical therapy for strengthening and ROM to allow patient to perform activities with least amount of restriction. PLAN FOR NEXT VISIT: cont with strengthening as able. SUBJECTIVE: Patient reports that she was able to power wash her front porch over the weekend. Patient reports that she continues to get a catch' in the shoulder. Patient notes that she has a lot going on at home and has been somewhat stressed lately. Pain Score: 5/10 Pain Location: Shoulder - Left Description: Stiffness;Sore Frequency: Continuous Post Treatment Pain Score: 2/10 Pain Location: Shoulder - Left Post Treatment Pain Description: Sore OBJECTIVE MEASURES WITH LEVEL OF FUNCTION: UE AROM L Shoulder Flex: 140 Degrees (supine AAROM ) TREATMENT: Therapeutic Exercise: 1: supine wand external rotation x 10* 3: supine wand flexion x 15 5: UBE: seat 10, level 1.1 x 4 minutes- alternating directions ea minute 6: caudal glide stretch 15 sec x 3* 7: standing wand abduction AAROM x 15 9: supine scapular depression x 15 10: low V stretch in doorway x 10* 11: shoulder IR stretch with towel 3 x 15 sec * 12: shoulder theraband-orange: IR and external rotation x 10 reps ea* Skilled Intervention: Patient was educated in proper exercise technique and purpose for exercises. Reviewed and educated patient on additions/changes for home exercise program as above (*) Skilled judgment was provided in selection of appropriate interventions. Provided written instruction for home exercise program to facilitate proper performance and compliance. Correct performance of therapeutic exercises was facilitated with verbal and visual cuing. Manual Therapy: 1: shoulder joint mobilizations into caudal glide; lateral glide; posterior glide and atenrior glide 15-20 sec x 6 reps ea direction with patient supine 2: PROM into shoulder external rotation with end range stretch x 10 Skilled Intervention: Manual skills to improve joint mobility, ROM, and decrease pain. Utilized anatomy knowledge of the therapist, and assessment of patient's response to intervention. Modalities: E-Stim Unattended (CP x 14 minutes with IFC to L shoulder) Body Region Treated - E-Stim Unattended: L shoulder Patient Position: seated with arm elevated Current: IFC Channels: 2 Intensity: 10 volts Minutes: 14 See flowsheet for details regarding treatment. Skilled Intervention: Proper administration and selection of modality based on clinical presentation, deficits, and needs. Patient response monitored throughout treatment. Billing: Penny: Therapeutic Exercise ([id number]): 1:1 time: 35 minutes (2 units: 23-37 mins) Manual Therapy ([id number]): 1:1 time: 10 minutes (1 unit: 8-22 mins) Modalities: E-Stim Unattended ([id number]): 1 unit(s) Total time: 70 minutes Tam Bose PT PROGRESS Observed: 09/30/2017 Status: COMPLETED Source: [place] 7:01 AM [facility] REPOSITORY O ID: [id number] Author: Tam (PtAngel Bose Service: (none) Author Type: Physical Therapist Type: Progress Notes Filed: 09/30/2017 10:01 AM Note Text: Episode Visit Count: 4 Therapist That Will Oversee The Plan Of Care: Tam Bose Start of Care Date: 09/17/17 Onset Date: 06/19/17 Plan of Care Certification Date: 09/17/17 Patient Identified by Name and Date of : Yes REHABILITATION AND SPORTS THERAPY PHYSICAL THERAPY TREATMENT NOTE ASSESSMENT: Rosalba Elizabeth demonstrated difficulty with abduction and external rotation ROM. Patient reports that she feels like something is Catching in the shoulder with abduction and external rotation movements. Patient demonstrates good technique with previous HEP. Patient with more tension noted in the shoulder this date- patient notes that she had some teeth pulled last week and was very tense in the shoulder and mouth area. Patient is challenged with external rotation strengthening. Patient reports that distraction of the shoulder feels good. Patient feels better with estim. The patient will continue to benefit from continued skilled physical therapy for strengthening and ROM to allow patient to perform activities with least amount of restriction. PLAN FOR NEXT VISIT: cont with strengthening as able. SUBJECTIVE: Patient reports that she was able to power wash her front porch over the weekend. Patient reports that she continues to get a catch' in the shoulder. Patient notes that she has a lot going on at home and has been somewhat stressed lately. Pain Score: 5/10 Pain Location: Shoulder - Left Description: Stiffness;Sore Frequency: Continuous Post Treatment Pain Score: 2/10 Pain Location: Shoulder - Left Post Treatment Pain Description: Sore OBJECTIVE MEASURES WITH LEVEL OF FUNCTION: UE AROM L Shoulder Flex: 140 Degrees (supine AAROM ) TREATMENT: Therapeutic Exercise: 1: supine wand external rotation x 10* 3: supine wand flexion x 15 5: UBE: seat 10, level 1.1 x 4 minutes- alternating directions ea minute 6: caudal glide stretch 15 sec x 3* 7: standing wand abduction AAROM x 15 9: supine scapular depression x 15 10: low V stretch in doorway x 10* 11: shoulder IR stretch with towel 3 x 15 sec * 12: shoulder theraband-orange: IR and external rotation x 10 reps ea* Skilled Intervention: Patient was educated in proper exercise technique and purpose for exercises. Reviewed and educated patient on additions/changes for home exercise program as above (*) Skilled judgment was provided in selection of appropriate interventions. Provided written instruction for home exercise program to facilitate proper performance and compliance. Correct performance of therapeutic exercises was facilitated with verbal and visual cuing. Manual Therapy: 1: shoulder joint mobilizations into caudal glide; lateral glide; posterior glide and atenrior glide 15-20 sec x 6 reps ea direction with patient supine 2: PROM into shoulder external rotation with end range stretch x 10 Skilled Intervention: Manual skills to improve joint mobility, ROM, and decrease pain. Utilized anatomy knowledge of the therapist, and assessment of patient's response to intervention. Modalities: E-Stim Unattended (CP x 14 minutes with IFC to L shoulder) Body Region Treated - E-Stim Unattended: L shoulder Patient Position: seated with arm elevated Current: IFC Channels: 2 Intensity: 10 volts Minutes: 14 See flowsheet for details regarding treatment. Skilled Intervention: Proper administration and selection of modality based on clinical presentation, deficits, and needs. Patient response monitored throughout treatment. Billing: Hemalatha: Therapeutic Exercise ([id number]): 1:1 time: 35 minutes (2 units: 23-37 mins) Manual Therapy ([id number]): 1:1 time: 10 minutes (1 unit: 8-22 mins) Modalities: E-Stim Unattended (04182): 1 unit(s) Total time: 70 minutes Tam Bose PT CNTHERAPY Observed: 09/26/2017 Status: COMPLETED Source: [place] 9:45 AM [facility] REPOSITORY OT/PT/Speech Visit (PTMCRM) ROSALBA ELIZABETH ([id number]) 1950 F Date Time Provider Department 09/26/17 9:45 AM TAM BOSE (PT) [facility] Date Time Provider Department [place] 09/26/2017 9:45 AM [id number], REBECCA *[facility] Reason for Visit: Appointment Cancelled [1023] Reason For Visit History Recorded Primary Visit Diagnosis:APPOINTMENT CANCELLED Allergies As of Date: 09/26/2017 (No Known Allergies) Date Reviewed: 09/09/2017 Reviewed by: Josefina Manjarrez LPN - Fully Assessed Prescriptions as of 09/26/2017 Sig: PREDNISONE 5 MG TABLET Day 1=6tabs with food, Day 2=* ERGOCALCIFEROL (VITAMIN D2) 5* (take by mouth with food 3tim* FOLIC ACID 1 MG TABLET Take 1 tablet by mouth once d* METHOTREXATE SODIUM 2.5 MG TA* Take 9-10tabs by mouth with f* ADALIMUMAB 40 MG/0.8 ML SUBCU* Inject 40 mg subcutaneously. * IBUPROFEN 200 MG TABLET Take 400 mg by mouth as neede* TRIAMCINOLONE ACETONIDE 0.1 %* Apply to affected area twice* LEVOTHYROXINE 112 MCG CAPSULE Take 100 mcg by mouth. Progress Notes: Tam Bose PT 09/26/2017 8:20 AM Signed The appointment was cancelled for this patient. Tam Bose PT PROGRESS Observed: 09/26/2017 Status: COMPLETED Source: [place] 7:23 AM [facility] REPOSITORY HNO ID: [id number] Author: Tam Bose Service: (none) Author Type: Physical Therapist Type: Progress Notes Filed: 09/26/2017 8:20 AM Note Text: The appointment was cancelled for this patient. Tam Bose PT CNTHERAPY Observed: 09/22/2017 Status: COMPLETED Source: [place] 8:45 AM [facility] REPOSITORY OT/PT/Speech Visit (PTMCRM) ROSALBA ELIZABETH ([id number]) 1950 F Date Time Provider Department 09/22/17 8:45 AM TAM BOSE) [facility] Date Time Provider Department Center 09/22/2017 8:45 AM [id number], REBECCA *[facility] Reason for Visit: Physical Therapy [503] Primary Visit Diagnosis:Chronic left shoulder pain [M25.512, G89.29] Allergies As of Date: 09/22/2017 (No Known Allergies) Date Reviewed: 09/09/2017 Reviewed by: Josefina Manjarrez LPN - Fully Assessed Prescriptions as of 09/22/2017 Sig: PREDNISONE 5 MG TABLET Day 1=6tabs with food, Day 2=* ERGOCALCIFEROL (VITAMIN D2) 5* (take by mouth with food 3tim* FOLIC ACID 1 MG TABLET Take 1 tablet by mouth once d* METHOTREXATE SODIUM 2.5 MG TA* Take 9-10tabs by mouth with f* ADALIMUMAB 40 MG/0.8 ML SUBCU* Inject 40 mg subcutaneously. * IBUPROFEN 200 MG TABLET Take 400 mg by mouth as neede* TRIAMCINOLONE ACETONIDE 0.1 %* Apply to affected area twice* LEVOTHYROXINE 112 MCG CAPSULE Take 100 mcg by mouth. Progress Notes: Tam Bose, PT 09/22/2017 10:34 AM Signed Episode Visit Count: 3 Therapist That Will Oversee The Plan Of Care: Tam Bose Start of Care Date: 09/17/17 Onset Date: 06/19/17 Plan of Care Certification Date: 09/17/17 Patient Identified by Name and Date of : Yes REHABILITATION AND SPORTS THERAPY PHYSICAL THERAPY TREATMENT NOTE ASSESSMENT: Rosalba Elizabeth demonstrated improvements in flexion ROM and decreased pain complaints. Patient continues to be limited with external rotation. Patient reports some pain complaints with attempts at AAROM with the wand for external rotation. Patient reports feeling better with ice and stim. Patient demonstrates abduction greater than 90 degrees with wand in standing. IR remains challenging for patient. The patient will continue to benefit from continued skilled physical therapy for ROM and strengthening. PLAN FOR NEXT VISIT: cont to focus on external rotation and abduction SUBJECTIVE: Patient reports that she had a busy weekend but did all of her exercises on Friday. Reports that the shoulder was better after ice and estim. Pain Score: 1/10 Pain Location: Shoulder - Left Description: Stiffness Frequency: Intermittent Post Treatment Pain Score: 0/10 Pain Location: Shoulder - Left OBJECTIVE MEASURES WITH LEVEL OF FUNCTION: UE AROM L Shoulder Flex: 144 Degrees (supine AAROM) TREATMENT: Therapeutic Exercise: 1: supine wand external rotation x 10* 2: standing wand extension x 15 3: supine wand flexion x 15 4: standing wand IR pulling up pants x 15 5: UBE: seat 10, level 1.1 x 4 minutes- alternating directions ea minute 6: caudal glide stretch 15 sec x 3* 7: standing wand abduction AAROM x 15 8: supine wand AAROM horiz abd/add x 10 9: supine scapular depression x 10* 10: low V stretch in doorway x 10* 11: shoulder IR stretch with towel 3 x 15 sec * Skilled Intervention: Patient was educated in proper exercise technique and purpose for exercises. Reviewed and educated patient on additions/changes for home exercise program as above (*) Skilled judgment was provided in selection of appropriate interventions. Provided written instruction for home exercise program to facilitate proper performance and compliance. Correct performance of therapeutic exercises was facilitated with verbal and visual cuing. Modalities: E-Stim Unattended (CP x 14 minutes with IFC to L shoulder) Body Region Treated - E-Stim Unattended: L shoulder Patient Position: seated with arm elevated Current: IFC Channels: 2 Intensity: 9 volts Minutes: 14 See flowsheet for details regarding treatment. Skilled Intervention: Proper administration and selection of modality based on clinical presentation, deficits, and needs. Patient response monitored throughout treatment. Billing: Penny: Therapeutic Exercise ([id number]): 1:1 time: 40 minutes (3 units: 38-52 mins) Modalities: E-Stim Unattended ([id number]): 1 unit(s) Total time: 58 minutes Tam Bose PT PROGRESS Observed: 09/22/2017 Status: COMPLETED Source: [place] 8:23 AM [facility] REPOSITORY [facility] ID: [id number] Author: Tam Bose Service: (none) Author Type: Physical Therapist Type: Progress Notes Filed: 09/22/2017 10:34 AM Note Text: Episode Visit Count: 3 Therapist That Will Oversee The Plan Of Care: Tam Bose Start of Care Date: 09/17/17 Onset Date: 06/19/17 Plan of Care Certification Date: 09/17/17 Patient Identified by Name and Date of : Yes REHABILITATION AND SPORTS THERAPY PHYSICAL THERAPY TREATMENT NOTE ASSESSMENT: Rosalba Elizabeth demonstrated improvements in flexion ROM and decreased pain complaints. Patient continues to be limited with external rotation. Patient reports some pain complaints with attempts at AAROM with the wand for external rotation. Patient reports feeling better with ice and stim. Patient demonstrates abduction greater than 90 degrees with wand in standing. IR remains challenging for patient. The patient will continue to benefit from continued skilled physical therapy for ROM and strengthening. PLAN FOR NEXT VISIT: cont to focus on external rotation and abduction SUBJECTIVE: Patient reports that she had a busy weekend but did all of her exercises on Friday. Reports that the shoulder was better after ice and estim. Pain Score: 1/10 Pain Location: Shoulder - Left Description: Stiffness Frequency: Intermittent Post Treatment Pain Score: 0/10 Pain Location: Shoulder - Left OBJECTIVE MEASURES WITH LEVEL OF FUNCTION: UE AROM L Shoulder Flex: 144 Degrees (supine AAROM) TREATMENT: Therapeutic Exercise: 1: supine wand external rotation x 10* 2: standing wand extension x 15 3: supine wand flexion x 15 4: standing wand IR pulling up pants x 15 5: UBE: seat 10, level 1.1 x 4 minutes- alternating directions ea minute 6: caudal glide stretch 15 sec x 3* 7: standing wand abduction AAROM x 15 8: supine wand AAROM horiz abd/add x 10 9: supine scapular depression x 10* 10: low V stretch in doorway x 10* 11: shoulder IR stretch with towel 3 x 15 sec * Skilled Intervention: Patient was educated in proper exercise technique and purpose for exercises. Reviewed and educated patient on additions/changes for home exercise program as above (*) Skilled judgment was provided in selection of appropriate interventions. Provided written instruction for home exercise program to facilitate proper performance and compliance. Correct performance of therapeutic exercises was facilitated with verbal and visual cuing. Modalities: E-Stim Unattended (CP x 14 minutes with IFC to L shoulder) Body Region Treated - E-Stim Unattended: L shoulder Patient Position: seated with arm elevated Current: IFC Channels: 2 Intensity: 9 volts Minutes: 14 See flowsheet for details regarding treatment. Skilled Intervention: Proper administration and selection of modality based on clinical presentation, deficits, and needs. Patient response monitored throughout treatment. Billing: Hemalatha: Therapeutic Exercise ([id number]): 1:1 time: 40 minutes (3 units: 38-52 mins) Modalities: E-Stim Unattended (30447): 1 unit(s) Total time: 58 minutes Tam Bose PT CNTHERAPY Observed: 09/19/2017 Status: COMPLETED Source: [place] 9:00 AM [facility] REPOSITORY OT/PT/Speech Visit (PTMCRM) ROSALBA ELIZABETH ([id number]) 1950 F Date Time Provider Department 09/19/17 9:00 AM TAM BOSE (PT) [facility] Date Time Provider Department Center 09/19/2017 9:00 AM [id number], REBECCA *[facility] Reason for Visit: Physical Therapy [503] Primary Visit Diagnosis:Chronic left shoulder pain [M25.512, G89.29] Allergies As of Date: 09/19/2017 (No Known Allergies) Date Reviewed: 09/09/2017 Reviewed by: Josefina Manjarrez LPN - Fully Assessed Prescriptions as of 09/19/2017 Sig: PREDNISONE 5 MG TABLET Day 1=6tabs with food, Day 2=* ERGOCALCIFEROL (VITAMIN D2) 5* (take by mouth with food 3tim* FOLIC ACID 1 MG TABLET Take 1 tablet by mouth once d* METHOTREXATE SODIUM 2.5 MG TA* Take 9-10tabs by mouth with f* ADALIMUMAB 40 MG/0.8 ML SUBCU* Inject 40 mg subcutaneously. * IBUPROFEN 200 MG TABLET Take 400 mg by mouth as neede* TRIAMCINOLONE ACETONIDE 0.1 %* Apply to affected area twice* LEVOTHYROXINE 112 MCG CAPSULE Take 100 mcg by mouth. Progress Notes: Tam Bose PT 09/20/2017 7:46 AM Signed Episode Visit Count: 2 Therapist That Will Oversee The Plan Of Care: Tam Bose Start of Care Date: 09/17/17 Onset Date: 06/19/17 Plan of Care Certification Date: 09/17/17 Patient Identified by Name and Date of : Yes REHABILITATION AND SPORTS THERAPY PHYSICAL THERAPY TREATMENT NOTE ASSESSMENT: Rosalba Elizabeth demonstrated difficulty with shoulder abduction and flexion ROM. Patient reports some increased soreness with doing exercises. Patient encouraged to avoid overdoing stretching. Patient reports feeling better with ice and estim. Estim performed to decrease muscle soreness and generalized tenderness of the Left shoulder. The patient will continue to benefit from continued skilled physical therapy for stretching/ROM and strengthening to allow patient to perform functional activities with least amount of restriction. PLAN FOR NEXT VISIT: cont with ROM SUBJECTIVE: Patient reports that she was sore after the initial evaluation. Compliant with exercises and icing. Pain Score: 0/10 Pain Location: Shoulder - Left Frequency: Intermittent Post Treatment Pain Score: 0/10 Pain Location: Shoulder - Left OBJECTIVE MEASURES WITH LEVEL OF FUNCTION: Patient is in no acute distress. Patient able to perform wand abduction up to 90 degrees - pain complaints at end range. TREATMENT: Therapeutic Exercise: 2: standing wand extension x 10 3: supine wand flexion x 10 4: standing wand IR pulling up pants x 10 5: UBE: seat 10, level 1.1 x 4 minutes- alternating directions ea minute 6: caudal glide stretch 15 sec x 3* 7: standing wand abduction AAROM x 10* 8: supine wand AAROM horiz abd/add x 10* 9: supine scapular depression x 10* 10: low V stretch in doorway x 10* Skilled Intervention: Patient was educated in proper exercise technique and purpose for exercises. Reviewed and educated patient on additions/changes for home exercise program as above (*) Skilled judgment was provided in selection of appropriate interventions. Provided written instruction for home exercise program to facilitate proper performance and compliance. Correct performance of therapeutic exercises was facilitated with verbal and visual cuing. Modalities: E-Stim Unattended (CP x 14 minutes with IFC to L shoulder) Body Region Treated - E-Stim Unattended: L shoulder Patient Position: seated with arm elevated Current: IFC Channels: 2 Intensity: 13 volts Minutes: 14 See flowsheet for details regarding treatment. Skilled Intervention: Proper administration and selection of modality based on clinical presentation, deficits, and needs. Patient response monitored throughout treatment. Billing: Penny: Therapeutic Exercise ([id number]): 1:1 time: 32 minutes (2 units: 23-37 mins) Modalities: E-Stim Unattended ([id number]): 1 unit(s) Total time: 50 minutes Tam Bose PT PROGRESS Observed: 09/19/2017 Status: COMPLETED Source: [place] 6:54 AM [facility] OTHER CAMPUS REPOSITORY [facility] ID: [id number] Author: Tam (Pt) Karlie Service: (none) Author Type: Physical Therapist Type: Progress Notes Filed: 09/20/2017 7:46 AM Note Text: Episode Visit Count: 2 Therapist That Will Oversee The Plan Of Care: Tam Bose Start of Care Date: 09/17/17 Onset Date: 06/19/17 Plan of Care Certification Date: 09/17/17 Patient Identified by Name and Date of : Yes REHABILITATION AND SPORTS THERAPY PHYSICAL THERAPY TREATMENT NOTE ASSESSMENT: Rosalba Marques Glenn demonstrated difficulty with shoulder abduction and flexion ROM. Patient reports some increased soreness with doing exercises. Patient encouraged to avoid overdoing stretching. Patient reports feeling better with ice and estim. Estim performed to decrease muscle soreness and generalized tenderness of the Left shoulder. The patient will continue to benefit from continued skilled physical therapy for stretching/ROM and strengthening to allow patient to perform functional activities with least amount of restriction. PLAN FOR NEXT VISIT: cont with ROM SUBJECTIVE: Patient reports that she was sore after the initial evaluation. Compliant with exercises and icing. Pain Score: 0/10 Pain Location: Shoulder - Left Frequency: Intermittent Post Treatment Pain Score: 0/10 Pain Location: Shoulder - Left OBJECTIVE MEASURES WITH LEVEL OF FUNCTION: Patient is in no acute distress. Patient able to perform wand abduction up to 90 degrees - pain complaints at end range. TREATMENT: Therapeutic Exercise: 2: standing wand extension x 10 3: supine wand flexion x 10 4: standing wand IR pulling up pants x 10 5: UBE: seat 10, level 1.1 x 4 minutes- alternating directions ea minute 6: caudal glide stretch 15 sec x 3* 7: standing wand abduction AAROM x 10* 8: supine wand AAROM horiz abd/add x 10* 9: supine scapular depression x 10* 10: low V stretch in doorway x 10* Skilled Intervention: Patient was educated in proper exercise technique and purpose for exercises. Reviewed and educated patient on additions/changes for home exercise program as above (*) Skilled judgment was provided in selection of appropriate interventions. Provided written instruction for home exercise program to facilitate proper performance and compliance. Correct performance of therapeutic exercises was facilitated with verbal and visual cuing. Modalities: E-Stim Unattended (CP x 14 minutes with IFC to L shoulder) Body Region Treated - E-Stim Unattended: L shoulder Patient Position: seated with arm elevated Current: IFC Channels: 2 Intensity: 13 volts Minutes: 14 See flowsheet for details regarding treatment. Skilled Intervention: Proper administration and selection of modality based on clinical presentation, deficits, and needs. Patient response monitored throughout treatment. Billing: Hemalatha: Therapeutic Exercise (30650): 1:1 time: 32 minutes (2 units: 23-37 mins) Modalities: E-Stim Unattended (90071): 1 unit(s) Total time: 50 minutes Tam Bose PT CNTHERAPY Observed: 09/17/2017 Status: COMPLETED Source: [place] 8:45 AM [facility] OTHER [facility] REPOSITORY OT/PT/Speech Visit (PTMCRM) ROSALBA ELIZABETH ([id number]) 1950 F Date Time Provider Department 09/17/17 8:45 AM TAM BOSE (PT) [facility] Date Time Provider Department Center 09/17/2017 8:45 AM [id number], REBECCA *[facility] Reason for Visit: PT Eval [887] Patient Education [91] Primary Visit Diagnosis:Chronic left shoulder pain [M25.512, G89.29] Allergies As of Date: 09/17/2017 (No Known Allergies) Date Reviewed: 09/09/2017 Reviewed by: Josefina Manjarrez LPN - Fully Assessed Prescriptions as of 09/17/2017 Sig: PREDNISONE 5 MG TABLET Day 1=6tabs with food, Day 2=* ERGOCALCIFEROL (VITAMIN D2) 5* (take by mouth with food 3tim* FOLIC ACID 1 MG TABLET Take 1 tablet by mouth once d* METHOTREXATE SODIUM 2.5 MG TA* Take 9-10tabs by mouth with f* ADALIMUMAB 40 MG/0.8 ML SUBCU* Inject 40 mg subcutaneously. * IBUPROFEN 200 MG TABLET Take 400 mg by mouth as neede* TRIAMCINOLONE ACETONIDE 0.1 %* Apply to affected area twice* LEVOTHYROXINE 112 MCG CAPSULE Take 100 mcg by mouth. Progress Notes: Tam Bose, PT 09/17/2017 9:59 AM Signed Episode Visit Count: 1 Therapist That Will Oversee The Plan Of Care: Tam Bose Start of Care Date: 09/17/17 Onset Date: 06/19/17 Plan of Care Certification Date: 09/17/17 Patient Identified by Name and Date of : Yes REHABILITATION AND SPORTS THERAPY PHYSICAL THERAPY EVALUATION PLAN OF CARE: Assessment: Rosalba Elizabeth presents with the diagnosis of chronic L shoulder pain. She presents with impairments of decreased left shoulder ROM and strength, difficulty with reaching overhead and behind her back, pain complaints with lying on the left side to sleep and inability to close the car door with the left hand. She demonstrates some irritation of the RTC musculature and negative impingement symptoms at this time. Patient is the most guarded with abduction. Patient lives alone and needs to be able to perform all activities for herself. Patient notes that she has been compensating with the R arm for lifting and carrying. She may benefit from skilled therapy services to improve pain complaints and Left shoulder ROM and strength to allow patient to perform functional activities without restriction or increased pain complaints. Prognosis: Good Good due to: current objective clinical presentation;positive past response to therapy;good support system/ coping skills Goals for Episode of Care: created on 09/17/17 through 11/07/17 Patent verbalizes ability to be able to open and close the car door with left arm. Blaine in home exercise program. Patient will increase active ROM of Left shoulder by 15-20 degrees for flexion, abduction and external rotation to allow pt to improved performance of ADLs. Patient will increase strength of Left shoulder and scapular musculature by at least 1/3 mm grade to allow for return to prior functional status. Perform sleeping on left side with decreased report of symptoms/pain in 3 weeks. Perform reaching into overhead cupboard without pain. Demonstrate improvement on functional score: Patient will improve his/her AM-PAC T-scale score by 4 points to indicate a Minimal Clinical Important Difference . G CODE REPORTING Based on clinical assessment and the score on the AM-PAC Scale Score Assessment Tool, the G code and corresponding severity modifiers are documented below. Evaluation: 09/17/2017 Current Status: Carrying, Moving and Handling Objects: G8984 CI 1-19% impaired Goal Status: Carrying, Moving and Handling Objects: G8985 CI 1-19% impaired Planned Interventions, Frequency, and Duration: Current Frequency: 2x/week Duration: 6 weeks Total Number of Visits Planned: 12 Patient to be see for Planned Treatment Interventions: Therapeutic exercise;Manual therapy;Therapeutic activities;Self-intermediate management;Patient/Family/Caregiver Education;Modalities Modalities: E-Stim Unattended PLAN FOR NEXT VISIT: progress with ROM Patient demonstrates good understanding of plan of care and treatment. The above goals and plan of care were discussed and agreed upon by patient/family. SUBJECTIVE: Rosalba Elizabeth is a 67 year old female seen today for L shouldr pain. Patient reports that she sleeps on her left side and would get pain in the shoulder with trying to sleep. Patient reports that the pain was more in the lateral aspect of the left arm but has moved up to the shoulder joint. Notes inability to close the car door. Patient went to see her doctor and had x-rays and referred to PT. Functional Limitations: sleeping;reaching behind back;dressing;reaching overhead (closing car door) Prior Level of Function: Independent without limitations Patient Goals: be able to move the shoulder without pain; be able to sleep without pain Intake Information: Prescription present Previous Treatment: None Falls Interview: No positive findings with falls interview Relevant History Medical Conditions: Arthritis (psoriatic arthritis; neck pain ) Preferred Language: Burkinan Right or Left Handed: Right Employment: Retired Home Environment Patient Lives With: Self/Alone Aquatic Screen: No Pain Score: 0/10 Pain Location: Shoulder - Left Frequency: Intermittent Post Treatment Pain Score: 0/10 Pain Location: Shoulder - Left OBJECTIVE MEASURES WITH LEVEL OF FUNCTION: Posture / Alignment Posture: Increased thoracic kyphosis;Rounded shoulders L Shoulder Alignment: Elevated shoulder Shoulder Observations L Shoulder Palpation Tenderness: Bicipital groove;Rotator cuff muscles Sensation - Upper Extremity UE Light Touch Sensation: Grossly Intact UE AROM L Shoulder Extension: 50 Degrees (painful) L Shoulder Flex: 135 Degrees (painful) L Shoulder ABduction: 70 Degrees (painful) L Shoulder Internal Rotation: 80 Degrees L Shoulder External Rotation: 50 Degrees (painful) UE Joint Mobility L Shoulder joint mobility: Hypomobile UE Strength L Shoulder Extension: 4/5 L Shoulder Flexion: 4-/5 (painful) L Shoulder Abduction (C5): 3+/5 (painful) L Shoulder Internal Rotation: 4-/5 (painful) L Shoulder External Rotation: 4-/5 L Shoulder Horizontal ABduction: 4/5 L Shoulder Horizontal ADduction: 4/5 L Scapular Retraction: 4-/5 L Scapular Protraction: 4-/5 L Upper Trapezius: 3+/5 L Middle Trapezius: 3+/5 L Lower Trapezius: 3+/5 L Rhomboid: 3+/5 Functional Strength Functional Strength: diff opening car door; diff with overhead lifting Shoulder Special Tests: Biceps Load;Empty Can;[place]opher;[place] Education: Education Learning Preferences: Demonstration;Explanation;Performance;Printed Materials Barriers: None Learning/educational needs: Home exercise program;Plan of Care Education Provided: Yes, see treatment interventions for education provided Education Provided To: Patient Education Mode/Type: Demonstration;Explanation/Discussion;Literature/Printed Materials;Performance;Teach Back Response to Education/Teach Back: States/Identifies;Return Demonstration TREATMENT: Evaluation Therapeutic Exercise: 1: pendulums: flex/ext and Horiz abd/add x 10* 2: standing wand extension x 10* 3: supine wand flexion x 10* 4: standing wand IR pulling up pants x 10* 5: educated patient regarding shoulder anatomy and possible reasons for pain complaints. 6: Educated patient regarding evaluation findings 7: Educated patient regarding icing of the shoulder and decreasing inflammation Skilled Intervention: Patient was educated in proper exercise technique and purpose for exercises. Reviewed and educated patient on additions/changes for home exercise program as above (*) Skilled judgment was provided in selection of appropriate interventions. Provided written instruction for home exercise program to facilitate proper performance and compliance. Correct performance of therapeutic exercises was facilitated with verbal and visual cuing. Education in use of ice and parameters for each. Educated patient on rationale for performing exercises in regards to ROM and function Patient education as noted. Billing: Hemalatha: Evaluation - Low Complexity (57966) Therapeutic Exercise (93117): 1:1 time: 25 minutes (2 units: 23-37 mins) Total time: 45 minutes Tam Bose PT PROGRESS Observed: 09/17/2017 Status: COMPLETED Source: [place] 7:53 AM CLINIC OTHER CAMPUS REPOSITORY [facility] ID: [id number] Author: Tam (Pt) Karlie Service: (none) Author Type: Physical Therapist Type: Progress Notes Filed: 09/17/2017 9:59 AM Note Text: Episode Visit Count: 1 Therapist That Will Oversee The Plan Of Care: Tam Bose Start of Care Date: 09/17/17 Onset Date: 06/19/17 Plan of Care Certification Date: 09/17/17 Patient Identified by Name and Date of : Yes REHABILITATION AND SPORTS THERAPY PHYSICAL THERAPY EVALUATION PLAN OF CARE: Assessment: Rosalba Elizabeth presents with the diagnosis of chronic L shoulder pain. She presents with impairments of decreased left shoulder ROM and strength, difficulty with reaching overhead and behind her back, pain complaints with lying on the left side to sleep and inability to close the car door with the left hand. She demonstrates some irritation of the C musculature and negative impingement symptoms at this time. Patient is the most guarded with abduction. Patient lives alone and needs to be able to perform all activities for herself. Patient notes that she has been compensating with the R arm for lifting and carrying. She may benefit from skilled therapy services to improve pain complaints and Left shoulder ROM and strength to allow patient to perform functional activities without restriction or increased pain complaints. Prognosis: Good Good due to: current objective clinical presentation;positive past response to therapy;good support system/ coping skills Goals for Episode of Care: created on 09/17/17 through 11/07/17 Patent verbalizes ability to be able to open and close the car door with left arm. Blaine in home exercise program. Patient will increase active ROM of Left shoulder by 15-20 degrees for flexion, abduction and external rotation to allow pt to improved performance of ADLs. Patient will increase strength of Left shoulder and scapular musculature by at least 1/3 mm grade to allow for return to prior functional status. Perform sleeping on left side with decreased report of symptoms/pain in 3 weeks. Perform reaching into overhead cupboard without pain. Demonstrate improvement on functional score: Patient will improve his/her AM-PAC T-scale score by 4 points to indicate a Minimal Clinical Important Difference . G CODE REPORTING Based on clinical assessment and the score on the AM-PAC Scale Score Assessment Tool, the G code and corresponding severity modifiers are documented below. Evaluation: 09/17/2017 Current Status: Carrying, Moving and Handling Objects: G8984 CI 1-19% impaired Goal Status: Carrying, Moving and Handling Objects: G8985 CI 1-19% impaired Planned Interventions, Frequency, and Duration: Current Frequency: 2x/week Duration: 6 weeks Total Number of Visits Planned: 12 Patient to be see for Planned Treatment Interventions: Therapeutic exercise;Manual therapy;Therapeutic activities;Self-intermediate management;Patient/Family/Caregiver Education;Modalities Modalities: E-Stim Unattended PLAN FOR NEXT VISIT: progress with ROM Patient demonstrates good understanding of plan of care and treatment. The above goals and plan of care were discussed and agreed upon by patient/family. SUBJECTIVE: Rosalba Elizabeth is a 67 year old female seen today for L shouldr pain. Patient reports that she sleeps on her left side and would get pain in the shoulder with trying to sleep. Patient reports that the pain was more in the lateral aspect of the left arm but has moved up to the shoulder joint. Notes inability to close the car door. Patient went to see her doctor and had x-rays and referred to PT. Functional Limitations: sleeping;reaching behind back;dressing;reaching overhead (closing car door) Prior Level of Function: Independent without limitations Patient Goals: be able to move the shoulder without pain; be able to sleep without pain Intake Information: Prescription present Previous Treatment: None Falls Interview: No positive findings with falls interview Relevant History Medical Conditions: Arthritis (psoriatic arthritis; neck pain ) Preferred Language: Burkinan Right or Left Handed: Right Employment: Retired Home Environment Patient Lives With: Self/Alone Aquatic Screen: No Pain Score: 0/10 Pain Location: Shoulder - Left Frequency: Intermittent Post Treatment Pain Score: 0/10 Pain Location: Shoulder - Left OBJECTIVE MEASURES WITH LEVEL OF FUNCTION: Posture / Alignment Posture: Increased thoracic kyphosis;Rounded shoulders L Shoulder Alignment: Elevated shoulder Shoulder Observations L Shoulder Palpation Tenderness: Bicipital groove;Rotator cuff muscles Sensation - Upper Extremity UE Light Touch Sensation: Grossly Intact UE AROM L Shoulder Extension: 50 Degrees (painful) L Shoulder Flex: 135 Degrees (painful) L Shoulder ABduction: 70 Degrees (painful) L Shoulder Internal Rotation: 80 Degrees L Shoulder External Rotation: 50 Degrees (painful) UE Joint Mobility L Shoulder joint mobility: Hypomobile UE Strength L Shoulder Extension: 4/5 L Shoulder Flexion: 4-/5 (painful) L Shoulder Abduction (C5): 3+/5 (painful) L Shoulder Internal Rotation: 4-/5 (painful) L Shoulder External Rotation: 4-/5 L Shoulder Horizontal ABduction: 4/5 L Shoulder Horizontal ADduction: 4/5 L Scapular Retraction: 4-/5 L Scapular Protraction: 4-/5 L Upper Trapezius: 3+/5 L Middle Trapezius: 3+/5 L Lower Trapezius: 3+/5 L Rhomboid: 3+/5 Functional Strength Functional Strength: diff opening car door; diff with overhead lifting Shoulder Special Tests: Biceps Load;Empty Can;[place] Education: Education Learning Preferences: Demonstration;Explanation;Performance;Printed Materials Barriers: None Learning/educational needs: Home exercise program;Plan of Care Education Provided: Yes, see treatment interventions for education provided Education Provided To: Patient Education Mode/Type: Demonstration;Explanation/Discussion;Literature/Printed Materials;Performance;Teach Back Response to Education/Teach Back: States/Identifies;Return Demonstration TREATMENT: Evaluation Therapeutic Exercise: 1: pendulums: flex/ext and Horiz abd/add x 10* 2: standing wand extension x 10* 3: supine wand flexion x 10* 4: standing wand IR pulling up pants x 10* 5: educated patient regarding shoulder anatomy and possible reasons for pain complaints. 6: Educated patient regarding evaluation findings 7: Educated patient regarding icing of the shoulder and decreasing inflammation Skilled Intervention: Patient was educated in proper exercise technique and purpose for exercises. Reviewed and educated patient on additions/changes for home exercise program as above (*) Skilled judgment was provided in selection of appropriate interventions. Provided written instruction for home exercise program to facilitate proper performance and compliance. Correct performance of therapeutic exercises was facilitated with verbal and visual cuing. Education in use of ice and parameters for each. Educated patient on rationale for performing exercises in regards to ROM and function Patient education as noted. Billing: Penny: Evaluation - Low Complexity (05673) Therapeutic Exercise ([id number]): 1:1 time: 25 minutes (2 units: 23-37 mins) Total time: 45 minutes Tam Bose PT XR SHLDR 4V Observed: 09/09/2017 Status: F Source: [place] AP/JAKE/LAT/OUTLET LT 2:35 PM CLINIC OTHER CAMPUS REPOSITORY * * *Final Report* * * DATE OF EXAM: Sep 09 2017 2:35PM VHX [id number] - XR SHLDR 4V AP/JAKE/LAT/OUTLET LT / PROCEDURE REASON: multiple diagnoses * * * * Physician Interpretation * * * * EXAMINATION: XR SHLDR 4V AP/JAKE/LAT/OUTLET LT HISTORY: PAIN IN SHOULDER Pain in left shoulder Other chronic pain . TECHNIQUE: XR SHLDR 4V AP/JAKE/LAT/OUTLET LT Laterality: LEFT Number of different views (projections): 4 M: XB_1 Comparison: 11/01/2015 RESULT: There is no acute fracture or dislocation. There is mild to moderate narrowing acromioclavicular joint with hypertrophic changes. Minimal narrowing of the glenohumeral joint with inferior osteophytes. Subacromial space is normal. IMPRESSION:DEGENERATIVE CHANGES DESCRIBED. Molten Iron Pourer: PSCB Transcribe Date/Time: Sep 09 2017 3:41P Dictated by : NITISH LEZAMA MD This examination was interpreted and the report reviewed and electronically signed by: NITISH LEZAMA MD on Sep 09 2017 3:42PM EST [id number] Observed: 09/09/2017 Status: COMPLETED Source: [place] 2:27 PM CLINIC OTHER CAMPUS REPOSITORY [facility] ID: [id number] Author: Ro Gonzalez (Rt) Service: Radiology Author Type: Juice Standardizer Type: Progress Notes Filed: 09/09/2017 2:28 PM Note Text: Radiology Service Progress Note PATIENT NAME: Rosalba Elizabeth DATE OF SERVICE: September 09, 2017 TIME: 2:27 PM PATIENT IDENTITY VERIFICATION COMPLETED USING TWO (2) METHODS: Patient confirmed name verbally and Date of . PATIENT GENDER DATA: Female. status: : No status: NO. PATIENT RELEVANT IMPLANT DATA REVIEWED: Not Applicable RADIOLOGY DEPARTMENT: General X-ray: Exam(s) Completed: Upper Extremity X-Ray(s): Shoulder, AP / TRUE AP / AXILLARY / SUPRA OUTLET left : PERIPHERAL IV DATA: Not applicable SIGNED BY: RT Jerome September 09, 2017 2:27 PM PROGRESS Observed: 09/09/2017 Status: COMPLETED Source: [place] 1:36 PM [facility] REPOSITORY [facility] ID: [id number] Author: Chelsea Morales Service: (none) Author Type: Physician Type: Progress Notes Filed: 09/09/2017 4:13 PM Note Text: CC:psoriasiatic arthritis Today's visit 09/09/17:Patient report flare of scalp. had bronchitis 05/2017 treated with augmentin. Another cold 1month afterwards. Croupy cough and family with same illness. Mother on mother's day. L shoulder pain lately. Worse when trying to reach out for object with LUE. Reports pain 9/10. Minimal AM stiffness. Back on rheum meds. Neck pain better since last office visit, but occasionally bothers her. Overall uncomfortable but happy with rheum care. Seeing dentist, worse dental health since on methotrexate per patient. Will lose tooth on bottom and may need an implant. No falls/fx/trauma/illness/oral sores/rash/hairloss/jaw pain/dysphagia/epistaxis/hemoptysis since last visit. No adverse effects with meds. No other complaints. Patient denies fever, chills, cp, dyspnea, nausea, vomiting, night sweats, scalp tenderness, visual changes, barrera, bowel/bladder changes, weight changes or other complaints. Last visit supportive care, no response with otezla/too costly, f/u ENT, f/u with derm care, improved methotrexate 8tabs once a week (may increase if labs stable), daily folic acid, improved with humira 40mg sq injection once every other week, increase water intake, take vit D 4000 International Units daily with food, f/u with derm, prn heat/ice/otc arthritis creams, low impact weightbearing exercise, 11/11/16;reports psoriasis on back of scalp. None elsewhere. Started humira 06/2016. Up to 8tabs once a week methotrexate. No more fungal infection. Joint pain in knees just like mother. Pain 12/29. Minimal AM stiffness. Likes to Nextt, but not yet this year. overall mildly uncomfortable but happy with rheum care. No falls/fx/trauma/illness/oral sores/rash/hairloss/jaw pain/dysphagia/epistaxis/hemoptysis since last visit. No adverse effects with meds. No other complaints. Patient denies fever, chills, cp, dyspnea, nausea, vomiting, night sweats, scalp tenderness, visual changes, barrera, bowel/bladder changes, weight changes or other complaints. Last visit supportive care, no response with otezla/too costly, f/u ENT, f/u with derm care, restart methotrexate 4-8tabs once a week, start daily folic acid, increase water intake, take vit D 4000 International Units daily with food, start biologics if approved, prn heat/ice/otc arthritis creams, low impact weightbearing exercise 07/01/16:reports left side of neck, right knee, right hand/middle finger, 07/29. Moderate AM stiffness. Fungal infection resolved with oral antifungal 02/2016. Did fine with otezla sample marko, too costly. Improved elbow psoriasis. Still has psoriasis on scalp, eyebrows, face. Did well with methotrexate in past but had more joint pain all over since off methotrexate. Does enjoy occasional alcoholic drinks. Declined tablet survey. Overall uncomfortable but happy with rheum care. No falls/fx/trauma/illness/oral sores/rash/hairloss/jaw pain/dysphagia/epistaxis/hemoptysis since last visit. No adverse effects with meds. No other complaints. Patient denies fever, chills, cp, dyspnea, nausea, vomiting, night sweats, scalp tenderness, visual changes, barrera, bowel/bladder changes, weight changes or other complaints. Last visit supportive care, start otezla, f/u ENT, complete fungal treatment and topicals per derm care, when infection free and labs stable may restart methotrexate/folic acid, increase water intake, take vit D 4000 International Units daily with food, may consider other dmards/biologics, prn heat/ice/otc arthritis creams, low impact weightbearing exercise 02/02/16:was off rheum meds for fungal infection. Not on rheum meds since fungal infection on trunk still present. Using topicals, may try oral antifungal in future. reports left side-neck 09/28 x 6 weeks, constant. Minimal AM stiffness. Psoriasis greatly flared on scalp. Taking heat/ibuprofen not helping. More shoulder pain. Had not problems taking 6tabs once a week of methotrexate in the past. Overall doing ok and happy with care. No falls/fx/trauma/illness/oral sores/rash/hairloss/jaw pain/dysphagia/epistaxis/hemoptysis since last visit. No adverse effects with meds. No other complaints. Patient denies fever, chills, cp, dyspnea, nausea, vomiting, night sweats, scalp tenderness, visual changes, barrera, bowel/bladder changes, weight changes or other complaints. Last visit supportive care, consult ENT, complete fungal treatment and topicals per derm care, when infection free and labs stable may restart methotrexate/folic acid, increase water intake, complete vit D script, may consider other dmards/biologics, prn heat/ice/otc arthritis creams, low impact weightbearing exercise See notes 11/11/16-12/08/15 for details on prior visits humira 06/2016-present Methotrexate 10/2015-present 12/08/15:started methotrexate 5tabs once a week. less itchy scalp. Reports c/o earache, pressure in left ear X 3 weeks. C/o stiff neck to left side Itching to scalp. Was on zpak for L earache without response. Pain deep behind L ear. No change with warm compresses. Fungal rash below breasts the same. Due to see Derm soon. Drinking some water. Psoriasis stable. Same joint pain. Pain 1-2/10. Minimal Am stiffness. Overall doing ok and happy with care. No falls/fx/trauma/illness/oral sores/rash/hairloss/jaw pain/dysphagia/epistaxis/hemoptysis since last visit. No adverse effects with meds. No other complaints. Patient denies fever, chills, cp, dyspnea, nausea, vomiting, night sweats, scalp tenderness, visual changes, barrera, bowel/bladder changes, weight changes or other complaints. Last visit supportive care, complete fungal treatment and topicals per derm care, when infection free and labs stable may start methotrexate/folic acid, may consider other dmards/biologics, prn heat/ice/otc arthritis creams, low impact weightbearing exercise, 11/01/15 HPI: here for psoriasis eval 19y/o started psoriasis on ankled, then traveled to tibial areas, elbows A few years quiet Psoriasis worse on scalp since 2001, after divorce 51y/o found to have thyroid disease, now on med bilateral shoulders when mobile 08/04 for 1year 09/19/15 note Shant Patel MD note: scalp psoriasis, R breast candidiasis;refer to rheum for eval of arthritsi and biological med. RHEUM. ROS: Joint pain: yes- shoulders, knees, muscle spasms, neck Joint swelling: hands swelling when high sodium Am stiffness: yes 1.5hr H/o precedent/frequent infection(s): topical antifungal Skin thickening, psoriasis, photosensitivity, purpura: psoriasis as above Nail changes:great toenail dystrophic Eye inflammation: glasses Oral/nasal/genital ulcers: canker sore with diet changes GI problems-diarrhea/bleeding/IBD/Gluten intolerence/Dysphagia: gerd Fatigue: yes, sleeps 7=8hr/night, yes snoring, KATARINA no machine PMR/GCA ROS: negative Other ROS:The remainder of the review of systems is negative. 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 Smoking <1/2ppd [id number];quit 1979 etoh wine once-twice a week Industrial toxic exposures:no FAMILY HISTORY:mother-psoriasis, arthritis;father-on prednisone for lung issues;sisters=healthy;niece psoriasis;daughter-psoriasis; Patient reports no known FH of Gout or Pseudogout, , Psoriatic Arthritis, IBD, RA, Lupus, Myositis, Osteoporosis, MS, Cancer, Kidney Stones, TB infection exposed or Vasculitis TESTS:07/30/17 low vitamin D 17.1;NL cbc, cmp, esr 7, crp 0.1; 03/24/17 NL cbc, cmp, esr 8, crp 0.1; 11/11/16 NL cbc, cmp, esr 8 (10), crp<0.1 (0.2); 07/01/16 NL cbc, cmp, esr 10 (14),, crp 0.2 (0.1);negative quantiferon tb; 02/02/16 cervical spine xrays-Moderate degenerative disc disease at C4-5, C5-6 and C6-7 with disc height narrowing and uncovertebral hypertrophic changes. Moderate to marked narrowing of the left C5-6 neural foramen and right C3-4, C4-5 and C5-6 neural foramina. Moderate narrowing of the right C6-7 neural foramen as well 12/08/15 NL cbc, cmp;11/01/15 normal shoulder xrays 11/01/15 +hla b27;low vit D 22.4;NL cbc, cmp, crp 0.1, esr 14;negative rf<10, ccp<15, heather ifa, quantiferon tb, hepatitis panel except +hepBsurface AB These results are consistent with previous exposure and/or immunity to the hepatitis B virus antigen. 11/01/15 knee xrays-Right knee: There is no acute fracture. There is mild patellofemoral compartment narrowing. Tiny tricompartmental marginal osteophytes. Left knee: There is mild medial compartment narrowing with marginal osteophyte formation. Lateral and patellofemoral compartments are preserved. 11/01/15 cxr-multilevel djd in thoracic spine 11/01/15 hand xrays-There is advanced first CMC joint degenerative change bilaterally. Moderate triscaphe joint space narrowing on the right from degenerative change. There is degenerative change at scattered DIP joints greatest involving the right long finger DIP joint. Additional pertinent test results reviewed in medical chart PHYSICAL EXAM reviewed vitals BP 111/76 Pulse 72 Wt 151 lb (68.5kg) General Appearance: WD/WN, NAD. Appropriate grooming. Very pleasant. Ambulates fair without assistance or assistive devices SKIN:No rash, yes white/scaly/psoriasis on back of scalp, healed fungal rash under bra line, dystrophic great toenail, no purpura, no ulcers, no skin thickening/tightness, no telangiectasias. HEENT: No patchy alopecia, normal temporal artery pulsations, non-tender, scalp non-tender, no conjunctival injection or icterus, no oral ulcers, no thrush, normal nasal mucosano sinus tenderness,normal TM's L side no fluid/redness/bulging/minimal wax. Yes glasses, fair dentition NECK: neck supple w/o masses, no thyromegaly, no LAD. LUNGS: CTA, Good respiratory effort. HEART: RRR, - m/r/g ABDOMEN: soft, non-tender, no HSM/masses/bruits. EXTREMITIES: Adequate pulses b/l UE; No clubbing,discoloration,sclerodactyly, periungual erythema, digital ulcers, nail pitting, edema, varicosities. MUSCULOSK: No joint deformities, no rheumatoid nodules, calcifications or tophi. No SI tenderness, no darrius's tenderness, no heel/plantar tenderness, lumbar flexion full, negative Verónica's test. Swoll JTS:squaring of cmcs Tend. JTS:neck, CMCs, hands, L>R shoulders, knees;fair range of motion; no warmth/erythema No clinical synovitis in the DIP's, PIP's, MCP's, wrists, elbows, shoulders, knees, ankles, midfoot, or toes. no knee effusions bilateral. Shoulder exam:see above Hip rom without pain LIMITATION of Motion of Joints: yes Thoracic/Lumbar Spine: No percussion tenderness SLR:negative No instability in any upper or lower extremity joints. NEURO: Mental Status: alert and oriented x 3, anxious, CN II - XII grossly intact Motor: 5/5 proximally and distally b/l Sensory: intact to fine touch TENDER POINTS: 0/18 Gait: Normal w/o assistive devices Toe and heel walk normal. 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 (mother-psoriasis, arthritis;)with PMH:thyroid disease, KATARINA no machine, gerd, fell skating R wrist fracture [facility] 2003 presents with 19y/o started psoriasis on ankled, then traveled to tibial areas, elbows, A few years quiet, then Psoriasis worsen on scalp since 2001, after divorce, 51y/o found to have thyroid disease, gained weight, developed yeast infection, now has polyarticular joint pain in bilateral shoulders/knees/hands x1year, minimal Am stiffness, +hla b27;low vit D 22.4, has findings consistent with secondary osteoarthritis, polyarticular psoriatic arthritis, low vit D, here with mild polyarthralgias, flare of psoriasis on scalp, L shoulder pain recently, one bronchitis/recent cold/mother recently/high stress= supportive care, start prednisone marko, consult PT, no response with otezla/too costly, f/u ENT, f/u with derm care, improved methotrexate 9-10tabs once a week (may increase if labs stable), daily folic acid, improved with humira 40mg sq injection once every other week, increase water intake, take vit D 4000 International Units daily with food, f/u with derm, prn heat/ice/otc arthritis creams, low impact weightbearing exercise, follow up with dentist for dental care, answered all questions and concerns-patient voiced understanding. RECOMMENDATION/PLAN: Office Visit on 09/09/17 -XR SHOULDER ORTHO 4V AP/TRUE AP/LAT/OUTLET LT -COMP METABOLIC PANEL -CBC -SED RATE WESTERGREN -C-REACTIVE PROTEIN (CRP) -CONSULT TO PHYSICAL THERAPY -predniSONE (DELTASONE) 5 mg tablet Reviewed labs/tests with patient Provided printed info on osteoarthritis, reprinted psoriatic arthritis info 07/01/16 09/09/17 check cmp, cbc, esr, crp today and in 4months, in future check quantiferon tb 07/01/16 precert humira 09/09/17 JESICA 0, pain 90%;11/11/16 JESICA 0, pain 90%;07/01/16 JSEICA 0, pain 40%;02/02/16 JESICA 0, pain 60%;12/08/15 JESICA 0, pain 10-20%;11/01/15 JESICA 0, pain 40%; May apply over the counter arthritis cream (biofreeze, icy hot, asper cream, tiger balm, capsacin, etc.) to painful joints up to four times a day. Avoid contact with eyes. May take ES acetaminophen 500mg every 4-6hours for joint pain. Do not exceed 3000mg /day. Decrease stress Improve sleep May apply heat/ice 20minutes on and off to areas of pain Avoid aggravating triggers Calcium 1000-1200mg daily with food in DIVIDED doses take Vitamin D 4000 International Units daily with food Recommend goal: exercising 30minutes 3 times a week Recommend weight-bearing aerobic exercises such as walking, dancing, low impact aerobics, elliptical machine, stair climbing, gardening flexibility exercises and strength training exercises Recommend avoiding high impact exercises such as jumping, running or jogging or movements where you bend forward and twist the waist, for instance- touching your toes, sit-ups, 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 see spine clinic and physical therapy Additional time spent with patient on healthy lifestyle, healthy food and anti-inflammatory diet (with emphasis on whole plant based diet), avoiding refined carbs/sugars and processed food, appropriate exercise (stretching, cardio and strengthening), good sleep hygiene, stress mgt, and supplementing vital deficiencies and maintaining healthy wt and BMI. Additional information provided with references and educational information. Bone Health Recommendations: -Bone Density is recommended after menopause and after age 55-60, sooner if patient has risk factors, sooner if on systemic steroid use of 3 months or more. -Vitamin D supplementation recommended, optimal dose is the dose necessary to achieve Vitamin D 25-OH blood level in range of 40-60 ng/mL. (Vitamin D supplement in international units, is the dose necessary to achieve a Vitamin D 25-OH blood level in range of 40-60 ng/mL). -Recommended daily dose of calcium: 1200mg total a day in divided doses. Calcium from dietary sources, if not sufficient, or if with h/o calcium nephrolithiasis would recommend Calcium Citrate supplement, as it is recommended to avoid caclium carbonate products, which as main dietary calcium source. The after visit summary has information on dietary calcium and instructions on reading calcium label and converting the %DV to mg. -Regular weight-bearing and muscle-strengthening exercise -Avoidance of tobacco smoking, excessive alcohol intake and excessive caffeine intake. -Fall and fracture precautions -Continued regular dental follow up visits and good dental/gum care Stressed the importance of following up with PCP and specialists for his/her chronic diseases, health, CV, and cancer screening and continued care. Will follow disease activity/progression and adjust therapeutic regimen to disease activity and severity. Discussed medication dosage, usage, goals of therapy, and side effects. Available test results were reviewed An additional 20 minutes were spent outside of the patient visit to review records. Additional time spent with the patient to discuss their questions. Additional time spent with the patient devoted to discussing treatment strategy, planning, and implementation. Discussed findings, impression and plan with patient. Patient understands above plan; questions asked and answered. Patient agrees to plan as noted above. Total time spent on this visit, with more than 50% of time spent in face to face with patient, in consultation, and in addition to Counseling and Coordination of Care:1:25-45PM spent more than 50% of the [id number] time in counseling, explanation of diagnosis, and planning of further management Follow up: 5-6months, earlier if needed Recommendations to share with referring physician/Primary care physician : Dear Dr. Bran and Dm Lundberg NP : I had the pleasure of seeing your patient, . I have enclosed a copy of my clinic note with my assessment and recommendations for this patient. Recommendations for your consideration as you deem necessary: -Continuous follow up with Primary care physician for cardiovascular disease prevention, for age appropriate cancer screening and routine health maintenance and wellness, and infection precautions and age appropriate immunization recommended. Thank you for allowing me to participate in the care of your patient. Chelsea Morales MD I will relay my findings and recommendations to the physician requesting the consult by letter/electronic shared medical records. cc Amanda Bran MD;Dm Lundberg NP [address] [id number] CNOV Observed: 09/09/2017 Status: COMPLETED Source: [place] 1:10 PM [facility] REPOSITORY Office Visit (ASIF) ROSALBA ELIZABETH ([id number]) 1950 F Date Time Provider Department 09/09/17 1:10 PM CHELSEA MORALES During your visit today, we recorded the following information about you: Pulse Blood pressure Weight 72/minute 111/76 68.5 kg Josefina Manjarrez CUSTOMER SERVICE AGENT 09/09/2017 1:27 PM Addendum [facility] FACTS LAB HOURS: Lab is open 7:30am to 6pm M-, open 7:30am -5pm on Friday and open 8am-12pm Friday. Routine Lab Orders 45 days after they are entered. If your lab orders , you may be required to wait in the lab while they are reinstated FUTURE ORDERS are lab tests to be completed on the ?EXPECTED? date. These orders 45 days after the expected date. STANDING ORDERS are recurring orders with an expiration date. The interval will indicate how often the test should be completed. FASTING LAB means nothing to eat or drink (except water) 10- 12 hours before your blood is drawn. CT/MRI/IVP If you have one of these radiology exams ordered along with blood work, please complete the blood work at least one day prior to the scheduled exam. [facility] No appointment needed At the [facility], patients 6 years and older can get walk- in medical attention for common health problems including: Cold and flu symptoms Conjunctivitis Ear and throat infections Minor bumps and cuts Seasonal allergies Skin rashes Simple sprains and strains Sinus infections Urinary tract infections Upper respiratory tract infections Locations and Times [facility] - [address] [facility], [facility] - [address] [place] [address] - Friday through Friday 6 AM - 9 PM - Friday and Friday 8 AM - 4 PM Emergency Department [facility] - [address] [facility] (off of [facility]), [facility] [phone] Pharmacy Hours: Friday through Friday 8 am to 6 pm Verify Pharmacy Benefits has been completed: Yes Retail Pharmacy has been updated: Yes Patient would like prescriptions ePrescribed to: Retail (local) Pharmacy:Name of Pharmacy Phone Number May apply over the counter arthritis cream (biofreeze, icy hot, asper cream, tiger balm, capsacin, etc.) to painful joints up to four times a day. Avoid contact with eyes. May take ES acetaminophen 500mg every 4-6hours for joint pain. Do not exceed 3000mg /day. Decrease stress Improve sleep May apply heat/ice 20minutes on and off to areas of pain Avoid aggravating triggers Calcium 1000-1200mg daily with food in DIVIDED doses if labs normal, take Vitamin D 4000 International Units daily with food Recommend goal: exercising 30minutes 3 times a week Recommend weight-bearing aerobic exercises such as walking, dancing, low impact aerobics, elliptical machine, stair climbing, gardening flexibility exercises and strength training exercises Recommend avoiding high impact exercises such as jumping, running or jogging or movements where you bend forward and twist the waist, for instance- touching your toes, sit-ups, using row machine assisted pain recommendations per PCP/pain clinic see derm for skin care, fungal/psoriasis care Methotrexate 2.5mg tabs: Take 8tabs by mouth with food once a week Do not drink alcohol while taking methotrexate Have bloodwork every 8-12weeks for monitoring while taking Methotrexate Please take folic acid 1mg tab:Take 1tab by mouth daily humira 40mg sq injection once every other week Please hold methotrexate/humira if on antibiotics or if you have any signs/symptoms of infection. see spine clinic and physical therapy Thank you. Chelsea Morales MD 09/09/2017 4:13 PM Signed CC:psoriasiatic arthritis Today's visit 09/09/17:Patient report flare of scalp. had bronchitis 05/2017 treated with augmentin. Another cold 1month afterwards. Croupy cough and family with same illness. Mother on mother's day. L shoulder pain lately. Worse when trying to reach out for object with LUE. Reports pain 10. Minimal AM stiffness. Back on rheum meds. Neck pain better since last office visit, but occasionally bothers her. Overall uncomfortable but happy with rheum care. Seeing dentist, worse dental health since on methotrexate per patient. Will lose tooth on bottom and may need an implant. No falls/fx/trauma/illness/oral sores/rash/hairloss/jaw pain/dysphagia/epistaxis/hemoptysis since last visit. No adverse effects with meds. No other complaints. Patient denies fever, chills, cp, dyspnea, nausea, vomiting, night sweats, scalp tenderness, visual changes, barrera, bowel/bladder changes, weight changes or other complaints. Last visit supportive care, no response with otezla/too costly, f/u ENT, f/u with derm care, improved methotrexate 8tabs once a week (may increase if labs stable), daily folic acid, improved with humira 40mg sq injection once every other week, increase water intake, take vit D 4000 International Units daily with food, f/u with derm, prn heat/ice/otc arthritis creams, low impact weightbearing exercise, 11/11/16;reports psoriasis on back of scalp. None elsewhere. Started humira 06/2016. Up to 8tabs once a week methotrexate. No more fungal infection. Joint pain in knees just like mother. Pain 12/29. Minimal AM stiffness. Likes to kayak, but not yet this year. overall mildly uncomfortable but happy with rheum care. No falls/fx/trauma/illness/oral sores/rash/hairloss/jaw pain/dysphagia/epistaxis/hemoptysis since last visit. No adverse effects with meds. No other complaints. Patient denies fever, chills, cp, dyspnea, nausea, vomiting, night sweats, scalp tenderness, visual changes, barrera, bowel/bladder changes, weight changes or other complaints. Last visit supportive care, no response with otezla/too costly, f/u ENT, f/u with derm care, restart methotrexate 4-8tabs once a week, start daily folic acid, increase water intake, take vit D 4000 International Units daily with food, start biologics if approved, prn heat/ice/otc arthritis creams, low impact weightbearing exercise 07/01/16:reports left side of neck, right knee, right hand/middle finger, 07/29. Moderate AM stiffness. Fungal infection resolved with oral antifungal 02/2016. Did fine with otezla sample marko, too costly. Improved elbow psoriasis. Still has psoriasis on scalp, eyebrows, face. Did well with methotrexate in past but had more joint pain all over since off methotrexate. Does enjoy occasional alcoholic drinks. Declined tablet survey. Overall uncomfortable but happy with rheum care. No falls/fx/trauma/illness/oral sores/rash/hairloss/jaw pain/dysphagia/epistaxis/hemoptysis since last visit. No adverse effects with meds. No other complaints. Patient denies fever, chills, cp, dyspnea, nausea, vomiting, night sweats, scalp tenderness, visual changes, barrera, bowel/bladder changes, weight changes or other complaints. Last visit supportive care, start otezla, f/u ENT, complete fungal treatment and topicals per derm care, when infection free and labs stable may restart methotrexate/folic acid, increase water intake, take vit D 4000 International Units daily with food, may consider other dmards/biologics, prn heat/ice/otc arthritis creams, low impact weightbearing exercise 02/02/16:was off rheum meds for fungal infection. Not on rheum meds since fungal infection on trunk still present. Using topicals, may try oral antifungal in future. reports left side-neck 6/10 x 6 weeks, constant. Minimal AM stiffness. Psoriasis greatly flared on scalp. Taking heat/ibuprofen not helping. More shoulder pain. Had not problems taking 6tabs once a week of methotrexate in the past. Overall doing ok and happy with care. No falls/fx/trauma/illness/oral sores/rash/hairloss/jaw pain/dysphagia/epistaxis/hemoptysis since last visit. No adverse effects with meds. No other complaints. Patient denies fever, chills, cp, dyspnea, nausea, vomiting, night sweats, scalp tenderness, visual changes, barrera, bowel/bladder changes, weight changes or other complaints. Last visit supportive care, consult ENT, complete fungal treatment and topicals per derm care, when infection free and labs stable may restart methotrexate/folic acid, increase water intake, complete vit D script, may consider other dmards/biologics, prn heat/ice/otc arthritis creams, low impact weightbearing exercise See notes 11/11/16-12/08/15 for details on prior visits humira 06/2016-present Methotrexate 10/2015-present 12/08/15:started methotrexate 5tabs once a week. less itchy scalp. Reports c/o earache, pressure in left ear X 3 weeks. C/o stiff neck to left side Itching to scalp. Was on zpak for L earache without response. Pain deep behind L ear. No change with warm compresses. Fungal rash below breasts the same. Due to see Derm soon. Drinking some water. Psoriasis stable. Same joint pain. Pain 1-2/10. Minimal Am stiffness. Overall doing ok and happy with care. No falls/fx/trauma/illness/oral sores/rash/hairloss/jaw pain/dysphagia/epistaxis/hemoptysis since last visit. No adverse effects with meds. No other complaints. Patient denies fever, chills, cp, dyspnea, nausea, vomiting, night sweats, scalp tenderness, visual changes, barrera, bowel/bladder changes, weight changes or other complaints. Last visit supportive care, complete fungal treatment and topicals per derm care, when infection free and labs stable may start methotrexate/folic acid, may consider other dmards/biologics, prn heat/ice/otc arthritis creams, low impact weightbearing exercise, 11/01/15 HPI: here for psoriasis eval 19y/o started psoriasis on ankled, then traveled to tibial areas, elbows A few years quiet Psoriasis worse on scalp since 2001, after divorce 51y/o found to have thyroid disease, now on med bilateral shoulders when mobile 08/04 for 1year 09/19/15 note Shant Patel MD note: scalp psoriasis, R breast candidiasis;refer to rheum for eval of arthritsi and biological med. RHEUM. ROS: Joint pain: yes- shoulders, knees, muscle spasms, neck Joint swelling: hands swelling when high sodium Am stiffness: yes 1.5hr H/o precedent/frequent infection(s): topical antifungal Skin thickening, psoriasis, photosensitivity, purpura: psoriasis as above Nail changes:great toenail dystrophic Eye inflammation: glasses Oral/nasal/genital ulcers: canker sore with diet changes GI problems-diarrhea/bleeding/IBD/Gluten intolerence/Dysphagia: gerd Fatigue: yes, sleeps 7=8hr/night, yes snoring, KATARINA no machine PMR/GCA ROS: negative Other ROS:The remainder of the review of systems is negative. 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 Smoking <1/2ppd [id number];quit 1979 etoh wine once-twice a week Industrial toxic exposures:no FAMILY HISTORY:mother-psoriasis, arthritis;father-on prednisone for lung issues;sisters=healthy;niece psoriasis;daughter-psoriasis; Patient reports no known FH of Gout or Pseudogout, , Psoriatic Arthritis, IBD, RA, Lupus, Myositis, Osteoporosis, MS, Cancer, Kidney Stones, TB infection exposed or Vasculitis TESTS:07/30/17 low vitamin D 17.1;NL cbc, cmp, esr 7, crp 0.1; 03/24/17 NL cbc, cmp, esr 8, crp 0.1; 11/11/16 NL cbc, cmp, esr 8 (10), crp<0.1 (0.2); 07/01/16 NL cbc, cmp, esr 10 (14),, crp 0.2 (0.1);negative quantiferon tb; 02/02/16 cervical spine xrays-Moderate degenerative disc disease at C4-5, C5-6 and C6-7 with disc height narrowing and uncovertebral hypertrophic changes. Moderate to marked narrowing of the left C5-6 neural foramen and right C3-4, C4-5 and C5-6 neural foramina. Moderate narrowing of the right C6-7 neural foramen as well 12/08/15 NL cbc, cmp;11/01/15 normal shoulder xrays 11/01/15 +hla b27;low vit D 22.4;NL cbc, cmp, crp 0.1, esr 14;negative rf<10, ccp<15, heather ifa, quantiferon tb, hepatitis panel except +hepBsurface AB These results are consistent with previous exposure and/or immunity to the hepatitis B virus antigen. 11/01/15 knee xrays-Right knee: There is no acute fracture. There is mild patellofemoral compartment narrowing. Tiny tricompartmental marginal osteophytes. Left knee: There is mild medial compartment narrowing with marginal osteophyte formation. Lateral and patellofemoral compartments are preserved. 11/01/15 cxr-multilevel djd in thoracic spine 11/01/15 hand xrays-There is advanced first CMC joint degenerative change bilaterally. Moderate triscaphe joint space narrowing on the right from degenerative change. There is degenerative change at scattered DIP joints greatest involving the right long finger DIP joint. Additional pertinent test results reviewed in medical chart PHYSICAL EXAM reviewed vitals BP 111/76 Pulse 72 Wt 151 lb (68.5kg) General Appearance: WD/WN, NAD. Appropriate grooming. Very pleasant. Ambulates fair without assistance or assistive devices SKIN:No rash, yes white/scaly/psoriasis on back of scalp, healed fungal rash under bra line, dystrophic great toenail, no purpura, no ulcers, no skin thickening/tightness, no telangiectasias. HEENT: No patchy alopecia, normal temporal artery pulsations, non-tender, scalp non-tender, no conjunctival injection or icterus, no oral ulcers, no thrush, normal nasal mucosano sinus tenderness,normal TM's L side no fluid/redness/bulging/minimal wax. Yes glasses, fair dentition NECK: neck supple w/o masses, no thyromegaly, no LAD. LUNGS: CTA, Good respiratory effort. HEART: RRR, - m/r/g ABDOMEN: soft, non-tender, no HSM/masses/bruits. EXTREMITIES: Adequate pulses b/l UE; No clubbing,discoloration,sclerodactyly, periungual erythema, digital ulcers, nail pitting, edema, varicosities. MUSCULOSK: No joint deformities, no rheumatoid nodules, calcifications or tophi. No SI tenderness, no darrius's tenderness, no heel/plantar tenderness, lumbar flexion full, negative Verónica's test. Swoll JTS:squaring of cmcs Tend. JTS:neck, CMCs, hands, L>R shoulders, knees;fair range of motion; no warmth/erythema No clinical synovitis in the DIP's, PIP's, MCP's, wrists, elbows, shoulders, knees, ankles, midfoot, or toes. no knee effusions bilateral. Shoulder exam:see above Hip rom without pain LIMITATION of Motion of Joints: yes Thoracic/Lumbar Spine: No percussion tenderness SLR:negative No instability in any upper or lower extremity joints. NEURO: Mental Status: alert and oriented x 3, anxious, CN II - XII grossly intact Motor: 5/5 proximally and distally b/l Sensory: intact to fine touch TENDER POINTS: 0/18 Gait: Normal w/o assistive devices Toe and heel walk normal. 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 (mother-psoriasis, arthritis;)with PMH:thyroid disease, KATARINA no machine, gerd, fell skating R wrist fracture [facility] 2003 presents with 19y/o started psoriasis on ankled, then traveled to tibial areas, elbows, A few years quiet, then Psoriasis worsen on scalp since 2001, after divorce, 51y/o found to have thyroid disease, gained weight, developed yeast infection, now has polyarticular joint pain in bilateral shoulders/knees/hands x1year, minimal Am stiffness, +hla b27;low vit D 22.4, has findings consistent with secondary osteoarthritis, polyarticular psoriatic arthritis, low vit D, here with mild polyarthralgias, flare of psoriasis on scalp, L shoulder pain recently, one bronchitis/recent cold/mother recently/high stress= supportive care, start prednisone marko, consult PT, no response with otezla/too costly, f/u ENT, f/u with derm care, improved methotrexate 9-10tabs once a week (may increase if labs stable), daily folic acid, improved with humira 40mg sq injection once every other week, increase water intake, take vit D 4000 International Units daily with food, f/u with derm, prn heat/ice/otc arthritis creams, low impact weightbearing exercise, follow up with dentist for dental care, answered all questions and concerns-patient voiced understanding. RECOMMENDATION/PLAN: Office Visit on 09/09/17 -XR SHOULDER ORTHO 4V AP/TRUE AP/LAT/OUTLET LT -COMP METABOLIC PANEL -CBC -SED RATE WESTERGREN -C-REACTIVE PROTEIN (CRP) -CONSULT TO PHYSICAL THERAPY -predniSONE (DELTASONE) 5 mg tablet Reviewed labs/tests with patient Provided printed info on osteoarthritis, reprinted psoriatic arthritis info 07/01/16 09/09/17 check cmp, cbc, esr, crp today and in 4months, in future check quantiferon tb 07/01/16 precert humira 09/09/17 JESICA 0, pain 90%;11/11/16 JESICA 0, pain 90%;07/01/16 JESICA 0, pain 40%;02/02/16 JESICA 0, pain 60%;12/08/15 JESICA 0, pain 10-20%;11/01/15 JESICA 0, pain 40%; May apply over the counter arthritis cream (biofreeze, icy hot, asper cream, tiger balm, capsacin, etc.) to painful joints up to four times a day. Avoid contact with eyes. May take ES acetaminophen 500mg every 4-6hours for joint pain. Do not exceed 3000mg /day. Decrease stress Improve sleep May apply heat/ice 20minutes on and off to areas of pain Avoid aggravating triggers Calcium 1000-1200mg daily with food in DIVIDED doses take Vitamin D 4000 International Units daily with food Recommend goal: exercising 30minutes 3 times a week Recommend weight-bearing aerobic exercises such as walking, dancing, low impact aerobics, elliptical machine, stair climbing, gardening flexibility exercises and strength training exercises Recommend avoiding high impact exercises such as jumping, running or jogging or movements where you bend forward and twist the waist, for instance- touching your toes, sit-ups, 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 see spine clinic and physical therapy Additional time spent with patient on healthy lifestyle, healthy food and anti-inflammatory diet (with emphasis on whole plant based diet), avoiding refined carbs/sugars and processed food, appropriate exercise (stretching, cardio and strengthening), good sleep hygiene, stress mgt, and supplementing vital deficiencies and maintaining healthy wt and BMI. Additional information provided with references and educational information. Bone Health Recommendations: -Bone Density is recommended after menopause and after age 55-60, sooner if patient has risk factors, sooner if on systemic steroid use of 3 months or more. -Vitamin D supplementation recommended, optimal dose is the dose necessary to achieve Vitamin D 25-OH blood level in range of 40-60 ng/mL. (Vitamin D supplement in international units, is the dose necessary to achieve a Vitamin D 25-OH blood level in range of 40-60 ng/mL). -Recommended daily dose of calcium: 1200mg total a day in divided doses. Calcium from dietary sources, if not sufficient, or if with h/o calcium nephrolithiasis would recommend Calcium Citrate supplement, as it is recommended to avoid caclium carbonate products, which as main dietary calcium source. The after visit summary has information on dietary calcium and instructions on reading calcium label and converting the %DV to mg. -Regular weight-bearing and muscle-strengthening exercise -Avoidance of tobacco smoking, excessive alcohol intake and excessive caffeine intake. -Fall and fracture precautions -Continued regular dental follow up visits and good dental/gum care Stressed the importance of following up with PCP and specialists for his/her chronic diseases, health, CV, and cancer screening and continued care. Will follow disease activity/progression and adjust therapeutic regimen to disease activity and severity. Discussed medication dosage, usage, goals of therapy, and side effects. Available test results were reviewed An additional 20 minutes were spent outside of the patient visit to review records. Additional time spent with the patient to discuss their questions. Additional time spent with the patient devoted to discussing treatment strategy, planning, and implementation. Discussed findings, impression and plan with patient. Patient understands above plan; questions asked and answered. Patient agrees to plan as noted above. Total time spent on this visit, with more than 50% of time spent in face to face with patient, in consultation, and in addition to Counseling and Coordination of Care:1:25-45PM spent more than 50% of the mley-qg-aarp time in counseling, explanation of diagnosis, and planning of further management Follow up: 5-6months, earlier if needed Recommendations to share with referring physician/Primary care physician : Dear Dr. Bran and Dm Lundberg NP : I had the pleasure of seeing your patient, . I have enclosed a copy of my clinic note with my assessment and recommendations for this patient. Recommendations for your consideration as you deem necessary: -Continuous follow up with Primary care physician for cardiovascular disease prevention, for age appropriate cancer screening and routine health maintenance and wellness, and infection precautions and age appropriate immunization recommended. Thank you for allowing me to participate in the care of your patient. Chelsea Morales MD I will relay my findings and recommendations to the physician requesting the consult by letter/electronic shared medical records. cc Amanda Bran MD;Dm Lundberg NP [address] [address] Referring Provider: DM LUNDBERG [[id number]] Allergies As of Date: 09/09/2017 (No Known Allergies) Date Reviewed: 09/09/2017 Reviewed by: Josefina Manjarrez LPN - Fully Assessed Reason for Visit: Follow Up [171] Cmt: outbreak to scalp Primary Visit Diagnosis:Polyarticular psoriatic arthritis (HCC) [L40.59] Other Visit Diagnoses:Secondary osteoarthritis of multiple sites [M15.3] Chronic left shoulder pain [M25.512, G89.29] Chronic pain of right knee [M25.561, G89.29] Elevated LFTs [R79.89] Anemia of chronic disease [D63.8] Elevated sed rate [R70.0] Cervical spondylosis without myelopathy [M47.812] Bilateral hand pain [M79.641, M79.642] Vitamin D deficiency [E55.9] Cervicalgia [M54.2] Long-term use of high-risk medication [Z79.899] Scalp psoriasis [L40.9] Order(s):XR SHOULDER ORTHO 4V AP/TRUE AP/LAT/OUTLET LT [3095633] Order #: [id number] FUTURE COMP METABOLIC PANEL [SQCMP] Order #: [id number] FUTURE CBC [SQCBC] Order #: [id number] FUTURE SED RATE WESTERGREN [SQWSR] Order #: [id number] FUTURE C-REACTIVE PROTEIN (CRP) [SQCRP] Order #: [id number] FUTURE CONSULT TO PHYSICAL THERAPY [9097] Order #: [id number]: 1 predniSONE (DELTASONE) 5 mg tabletDay 1=6tabs with food, Day 2=5tabs, Day 3=4tabs, Day 4=3tabs, Day 5=2tabs, Day 6=1tab, No NSAIDs on medDisp: 21 tabletRfl: 1 Prescriptions as of 09/09/2017 Sig: FOLIC ACID 1 MG TABLET Take 1 tablet by mouth once d* METHOTREXATE SODIUM 2.5 MG TA* Take 9-10tabs by mouth with f* ADALIMUMAB 40 MG/0.8 ML SUBCU* Inject 40 mg subcutaneously. * IBUPROFEN 200 MG TABLET Take 400 mg by mouth as neede* TRIAMCINOLONE ACETONIDE 0.1 %* Apply to affected area twice* LEVOTHYROXINE 112 MCG CAPSULE Take 100 mcg by mouth. PREDNISONE 5 MG TABLET Day 1=6tabs with food, Day 2=* ERGOCALCIFEROL (VITAMIN D2) 5* (take by mouth with food 3tim* Problem List As Of Date 09/09/2017 Noted Resolved Polyarticular psoriatic arthritis (HCC) [L40.59]INVALID FOR* Chronic pain of both shoulders [M25.511, G89.29*INVALID FOR* Chronic pain of both knees [M25.561, M25.562, G*INVALID FOR* Gastroesophageal reflux disease without esophag*INVALID FOR* Bilateral hand pain [M79.641, M79.642] INVALID FOR* Secondary osteoarthritis of multiple sites [M15*INVALID FOR* Vitamin D deficiency [E55.9] INVALID FOR* Bilateral high frequency sensorineural hearing *INVALID FOR* Fullness in ear [H93.8X9] INVALID FOR* Cervicalgia [M54.2] INVALID FOR* Cervical myofascial strain [S16.1XXA] INVALID FOR* Cervical spondylosis without myelopathy [M47.81*INVALID FOR* Tight unbalanced muscles [R29.898] INVALID FOR* Posture imbalance [R29.3] INVALID FOR* Long-term use of high-risk medication [Z79.899] INVALID FOR* Scalp psoriasis [L40.9] INVALID FOR* Chronic left shoulder pain [M25.512, G89.29] INVALID FOR* Other instructions from your clinician: [facility] FACTS LAB HOURS: Lab is open 7:30am to 6pm M-, open 7:30am -5pm on Friday and open 8am-12pm Friday. Routine Lab Orders 45 days after they are entered. If your lab orders , you may be required to wait in the lab while they are reinstated FUTURE ORDERS are lab tests to be completed on the ?EXPECTED? date. These orders 45 days after the expected date. STANDING ORDERS are recurring orders with an expiration date. The interval will indicate how often the test should be completed. FASTING LAB means nothing to eat or drink (except water) 10-12 hours before your blood is drawn. CT/MRI/IVP If you have one of these radiology exams ordered along with blood work, please complete the blood work at least one day prior to the scheduled exam. [facility] Care No appointment needed At the [facility], patients 6 years and older can get walk-in medical attention for common health problems including: Cold and flu symptoms Conjunctivitis Ear and throat infections Minor bumps and cuts Seasonal allergies Skin rashes Simple sprains and strains Sinus infections Urinary tract infections Upper respiratory tract infections Locations and Times [facility] - [address] [place] [address] - [address] [place] [address] - Friday through Friday 6 AM - 9 PM - Friday and Friday 8 AM - 4 PM Emergency Department [facility] - [address] [facility] (off of [facility]), [facility] [phone] Pharmacy Hours: Friday through Friday 8 am to 6 pm Verify Pharmacy Benefits has been completed: Yes Retail Pharmacy has been updated: Yes Patient would like prescriptions ePrescribed to: Retail (local) Pharmacy:Name of Pharmacy Phone Number May apply over the counter arthritis cream (biofreeze, icy hot, asper cream, tiger balm, capsacin, etc.) to painful joints up to four times a day. Avoid contact with eyes. May take ES acetaminophen 500mg every 4-6hours for joint pain. Do not exceed 3000mg /day. Decrease stress Improve sleep May apply heat/ice 20minutes on and off to areas of pain Avoid aggravating triggers Calcium 1000-1200mg daily with food in DIVIDED doses if labs normal, take Vitamin D 4000 International Units daily with food Recommend goal: exercising 30minutes 3 times a week Recommend weight-bearing aerobic exercises such as walking, dancing, low impact aerobics, elliptical machine, stair climbing, gardening flexibility exercises and strength training exercises Recommend avoiding high impact exercises such as jumping, running or jogging or movements where you bend forward and twist the waist, for instance- touching your toes, sit-ups, using row machine assisted pain recommendations per PCP/pain clinic see derm for skin care, fungal/psoriasis care Methotrexate 2.5mg tabs: Take 8tabs by mouth with food once a week Do not drink alcohol while taking methotrexate Have bloodwork every 8-12weeks for monitoring while taking Methotrexate Please take folic acid 1mg tab:Take 1tab by mouth daily humira 40mg sq injection once every other week Please hold methotrexate/humira if on antibiotics or if you have any signs/symptoms of infection. see spine clinic and physical therapy Thank you. Prescriptions ordered this encounter Disp Refills Start End PREDNISONE 5 MG TABLET 21 t* 1 09/09/2017 Sig: Day 1=6tabs with food, Day 2=5tabs, Day 3=4tabs, Day 4=3tabs, Day 5=2tabs, Day 6=1tab, No NSAIDs on med Medications Discontinued During This Encounter predniSONE (DELTASONE) 5 mg tablet 21 t* 1 07/10/2016 09/09/2017 Sig: Day 1=6tabs with food, Day 2=5tabs, Day 3=4tabs, Day 4=3tabs, Day 5=2tabs, Day 6=1tab, No NSAIDs on med Disc: Reason for discontinue is not on file. Disposition: Return nonfasting labs end of 10/2017, xrays today, consult PT, for psoriatic arthritis f/u OV 4-6months. Follow-up and Disposition History Recorded Letter Text Rosalba Jerald [facility] Chelsea Morales M.D. Rheumatic and Immunologic Diseases/LN20 [address] [place], [place] [address] Office: [phone] September 09, 2017 Dm Lundberg NP ([facility]) [address] [facility] [address] Re: [facility] No: [id number] Dear Dm Lundberg NP: I had the pleasure of seeing your patient, Ms. Rosalba [facility]. I have enclosed a copy of my clinic note with my assessment and recommendations for this patient. If you have any further questions or concerns please feel free to contact my office directly. Thank you for allowing me to participate in the care of your patient. Sincerely, Electronically Signed (to expedite mailing): Chelsea Morales M.D. Enclosure: Clinic Note Encounter Status:Closed by CHELSEA MORALES MD on 09/09/17 CBC Collected: 07/30/2017 Status: F Source: [place] 4:08 PM [facility] REPOSITORY TYPE CODE TESTS RESULT OUT OF REFERENCE UNITS RANGE LAB WBC 3.70-11.00 k/uL WBC 6.73 LAB RBC 3.90-5.20 m/uL Low RBC 3.62 LAB HGB 11.5-15.5 g/dL Hemoglobin 11.9 LAB HCT 36.0-46.0 % Hematocrit 36.6 LAB MCV 80.0-100.0 fL MCV High 101.1 LAB MCH 26.0-34.0 pG MCH 32.9 LAB MCHC 30.5-36.0 g/dL MCHC 32.5 LAB RDWCV 11.5-15.0 % RDW-CV 13.4 LAB PLTCT 150-400 k/uL Platelet Count 305 LAB MPV 9.0-12.7 fL MPV 10.0 LAB ABSNUC <0.01 k/uL Absolute nRBC <0.01 Performed By: #### CBC, WSR, VITD, CMP, CRP, INFTBG #### [facility] [address] [place], [place] [address] SED RATE WESTERGREN Collected: 07/30/2017 Status: F Source: [place] 4:08 PM [facility] REPOSITORY TYPE CODE TESTS RESULT OUT OF REFERENCE UNITS RANGE LAB WSR 0-20 mm/hr Sed Rate Westergren 7 Performed By: #### CBC, WSR, VITD, CMP, CRP, INFTBG #### [facility] [employer] [address] [place], [place] [address] VITAMIN D 25 HYDROXY Collected: 07/30/2017 Status: F Source: [place] 4:08 PM [facility] REPOSITORY TYPE CODE TESTS RESULT OUT OF REFERENCE UNITS RANGE LAB VITD 31.0-80.0 ng/mL Low Vitamin D 25 17.1 Hydroxy Result Comment: Classification of 25 [place] Vitamin D status: Insufficiency/Moderate Deficiency: < or = 30 ng/mL Sufficiency/Optimal Levels: 31 to 80 ng/mL Toxicity: > 100 ng/mL Test performed by chemiluminescent immunoassay. Performed By: #### CBC, WSR, VITD, CMP, CRP, INFTBG #### [facility] [employer] [address] [place] [address] COMP METABOLIC PANEL Collected: 07/30/2017 Status: F Source: [place] 4:08 [facility] REPOSITORY TYPE CODE TESTS RESULT OUT OF REFERENCE UNITS RANGE LAB TP 6.3-8.0 g/dL Protein, Total 7.1 LAB ALB 3.9-4.9 g/dL Albumin 4.1 LAB CA 8.5-10.2 mg/dL Calcium, Total 9.0 LAB TBIL 0.2-1.3 mg/dL Bilirubin, Total 0.3 LAB ALKP 32-117 U/L Alkaline Phosphatase 73 LAB AST 13-35 U/L AST 22 LAB GLU 74-99 mg/dL Glucose 88 Result Comment: The [place] Diabetes Association (ADA) provides guidance for cutoff values for fasting glucose and random glucose. The ADA defines fasting as no caloric intake for at least 8 hours. Fas ting plasma glucose results between 100 to 125 mg/dL indicate increased risk for diabetes (prediabetes). Fasting plasma glucose results greater than or equal to 126 mg/dL meet the criteria for diagnosis of diabetes. In the absence of unequivocal hyperglycemia, results should be confirmed by repeat testing. In a patient with classic symptoms of hyperglycemia or hyperglycemic crisis, random plasma glucose results greater than or equal to 200 mg/dL meet the criteria for diagnosis of diabetes. Reference: Standards of Medical Care in Diabetes 2016, [place] Diabetes Association. Diabetes Care. 2016.39(Suppl 1). LAB BUN 7-21 mg/dL BUN 15 LAB CRET 0.58-0.96 mg/dL Creatinine 0.73 LAB NA 136-144 mmol/L Sodium 139 LAB K 3.7-5.1 mmol/L Potassium 4.2 LAB CL 97-105 mmol/L Chloride 101 LAB CO2 22-30 mmol/L CO2 26 LAB AGAP 9-18 mmol/L Anion Gap 12 LAB ALT 7-38 U/L ALT 21 LAB GFRAA eGFR- Amer. >60 LAB GFRNAA . eGFR-All Other Races >60 Result Comment: eGFR (Estimated GFR) Units of measure: mL/min/1.73 meters squared eGFR is derived from the reexpressed MDRD Study equation using the following parameters: serum creatinine, age, gender and race. The creatinine assay has been calibrated to be traceable to IDMS. An eGFR <60 mL/min/1.73m2 for >3 months is consistent with chronic kidney disease. Refer to KDOQI guidelines for clinical interpretation. In patients with unstable renal function, e.g. those with acute kidney injury, the eGFR may not accurately reflect actual GFR. Performed By: #### CBC, WSR, VITD, CMP, CRP, INFTBG #### [facility] [employer] [address] [place] [address] C-REACTIVE PROTEIN Collected: 07/30/2017 Status: F Source: [place] 4:08 PM [facility] REPOSITORY TYPE CODE TESTS RESULT OUT OF REFERENCE UNITS RANGE LAB CRP <0.9 mg/dL C-Reactive 0.1 Protein Performed By: #### CBC, WSR, VITD, CMP, CRP, INFTBG #### [facility] [employer] [address] [place] [id number] TB BY QUANTIFERON Collected: 07/30/2017 Status: F Source: [place] 4:08 [facility] REPOSITORY TYPE CODE TESTS RESULT OUT OF REFERENCE UNITS RANGE LAB TBGRES Negative TB Result Negative LAB TBGUI <0.35 IU/mL TB Antigen 0.00 Response LAB TBGMIT >0.49 IU/mL Mitogen >10.00 Response LAB TBGINT Interpretation No evidence of current or previous infection with Mycobacterium tuberculosis. Performed By: #### CBC, WSR, VITD, CMP, CRP, INFTBG #### [facility] [address] [place] [address] ALLERGIES ALLERGIES DATE TYPE / CODE NAME / CODE REACTION SEVERITY SOURCE 03/19/2018 Drug No Known Unknown [facility] Allergy/416 Allergies/[id number] Hospital 151965(SNOM 0388(RXNORM) Repository ED CT) Drug NO KNOWN [facility] Class/06391 ALLERGIES Other [place] 1003(SNOMED Repository CT) ENCOUNTERS ENCOUNTERS ADMIT/DISCHARGE ACCOUNT ADMITTING ENCOUNTER LOCATION SOURCE NUMBER CLASS 03/19/2018 [id number] Ambulatory [facility] ing:LABSPEC Repository 02/17/2018/02/18/20 [id number] [facility] [place] Repository 02/17/2018/02/19/20 [id number] [facility] [place] Repository 11/05/2017/11/06/19 [id number] [facility] [place] Repository 10/29/2017/10/30/19 [id number] [facility] [place] Repository 10/21/2017/10/22/19 [id number] [facility] [place] Repository 10/21/2017/10/22/19 [id number] [facility] [place] Repository 10/16/2017/10/17/19 [id number] [facility] [place] Repository 10/13/2017/10/14/19 [id number] [facility] [place] Repository 10/09/2017/10/10/19 [id number] [facility] [place] Repository 10/07/2017/10/08/19 [id number] [facility] [place] Repository 10/01/2017/10/02/19 [id number] [facility] [place] Repository 09/30/2017/10/01/19 [id number] [facility] [place] Repository 09/22/2017/09/23/19 [id number] [facility] [place] Repository 09/19/2017/09/20/19 [id number] [facility] [place] Repository 09/17/2017/09/18/19 [id number] [facility] [place] Repository 09/09/2017 [id number] Ambulatory [facility] Other [place] Repository 09/09/2017/09/11/19 [id number] Ambulatory [address] Main [place] Repository 07/30/2017 [id number] Ambulatory [facility] Repository PAYERS PAYERS ENCOUNTER GUARANTOR PAYER SUBSCRIBER SOURCE 03/19/2018 ROSALBA CALDERON Insurance:ANGELI JOHNB[facility] *NOT 1985-02-36[place], [place] [address]Hoh: CONTRACTED*Policy Repository Number: [id number] Date:[id number] [address] [address]UI: 03/19/2018 Secondary NOT [id number] [place] Insurance:SELF PAY [facility] Number: Effective Repository Date:2018-03-19
== END ==
PROVIDERS: Referring Provider Nurse Practitioner; Visit Provider Nurse Practitioner
DX: E03.9 Hypothyroidism, unspecified (principal)
CPT/HCPCS: 84443

== ENCOUNTER → 2019-04-16 21:54 | Outpatient (CLI) | payer MEDICARE, SELFPAY ==
[2018-03-19 19:40] VITALS: BMI 24.7
[2019-04-16 22:37] LABS: Thyroid Stim Hormone (TSH) 0.51 uIU/mL (0.358-3.74)
== END ==
PROVIDERS: Referring Provider Nurse Practitioner; Visit Provider Nurse Practitioner
DX: E03.9 Hypothyroidism, unspecified (principal)
CPT/HCPCS: 84443

== ENCOUNTER → 2020-05-04 | Outpatient (CLI) | payer MEDICARE, SELFPAY ==
[2020-01-26 17:56] VITALS: BMI 24.7
[2020-05-04 22:40] LABS: Thyroid Stim Hormone (TSH) 0.24 uIU/mL (0.358-3.74)
== END | disposition home or self-care (01) ==
PROVIDERS: Visit Provider Nurse Practitioner
DX: E03.9 Hypothyroidism, unspecified (principal)
CPT/HCPCS: 84443

== ENCOUNTER 2021-05-17 22:03 | Outpatient (CLI) | payer MEDICARE, SELFPAY ==
[2021-05-17 22:18] LABS: Absolute Lymphocyte Count 2.29 X10^3/uL (0.83-4.51); Absolute Neutrophil Count 2.5 X10^3/uL (2.0-7.7); Basophil# 0.06 X10^3/uL; Basophil% 1.1 % (0-1); Eosinophil# 0.28 X10^3/uL; Hematocrit 38.9 % (37-47); Hemoglobin 12.8 g/dL (12.0-15.0); Lymphocyte # 2.29 X10^3/ul (0.83-4.51); Lymphocyte % 40.6 % (19-41); Mean Corp Hgb Conc 32.9 g/dL (32-36); Mean Corpuscular Hgb 33.3 pg (27.0-32.0); Mean Corpuscular Volume 101.3 fL (81-99); Mean Platelet Vol. 10.4 fl (6.2-12.0); Monocyte# 0.47 X10^3/uL; Monocyte% 8.3 % (0-10); NRBC Flagged by Analyzer 0 % (0-5); Neutrophil # 2.53 X10^3/uL (2.7-7.7); Neutrophil % 44.8 % (47-70); Platelet Count 298 K/mm3 (150-450); RBC Distribution Width CV 13.7 % (11.6-14.6); RBC Distribution Width SD 50.1 fl (35.1-43.9); Red Blood Count 3.84 M/mm3 (4.2-5.4); White Blood Count 5.6 K/mm3 (4.4-11.0)
[2021-05-17 22:38] LABS: ALB/GLOB Ratio 0.8 RATIO (0.9-2.4); AST(SGOT) 19 U/L (15-37); Alanine Aminotransfer ALT/SGPT 20 U/L (13-56); Albumin, Serum 3.6 g/dL (3.2-5.0); Alkaline Phosphatase 62 U/L (45-117); Anion Gap 4 (5-15); BUN 14 mg/dL (7-18); BUN/Creat Ratio 15.5 RATIO (10-20); Calcium,Total 8.6 mg/dL (8.5-10.1); Chloride 103 mmol/L (98-107); Cholesterol 238 mg/dL (200); EST Glomerular Filtration Rate 65 mL/min (>60); Est Glom Filt Rate - Afr Amer 79 mL/min (>60); Globulin 4.4 g/dL (2.2-4.2); Glucose 116 mg/dL (74-106); High Density Lipoprotein 66 mg/dL; Potassium 4.6 mmol/L (3.5-5.1); Sodium Level 138 mmol/L (136-145); Thyroid Stim Hormone (TSH) 0.73 uIU/mL (0.358-3.74); Triglycerides 111 mg/dL; Very Low Density Lipoprotein 22 mg/dL (5-40)
== END 2021-05-17 23:59 | disposition short-term general hospital (02) ==
PROVIDERS: Visit Provider Nurse Practitioner
DX: E03.9 Hypothyroidism, unspecified (principal); E78.00 Pure hypercholesterolemia, unspecified; M19.90 Unspecified osteoarthritis, unspecified site
CPT/HCPCS: 80053; 80061; 84443; 85025

== ENCOUNTER → 2022-06-18 | Outpatient (CLI) | payer MEDICARE, SELFPAY ==
[2022-06-18 22:17] LABS: Thyroid Stim Hormone (TSH) 0.64 uIU/mL (0.358-3.74)
== END | disposition home or self-care (01) ==
PROVIDERS: Visit Provider Nurse Practitioner
DX: E03.9 Hypothyroidism, unspecified (principal)
CPT/HCPCS: 84443

== ENCOUNTER → 2022-12-27 | Outpatient (CLI) | payer MEDICARE, SELFPAY ==
[2022-12-27 23:07] LABS: Thyroid Stim Hormone (TSH) 1.45 uIU/mL (0.358-3.74)
== END | disposition home or self-care (01) ==
PROVIDERS: Referring Provider Nurse Practitioner; Visit Provider Nurse Practitioner
DX: E03.9 Hypothyroidism, unspecified (principal)
CPT/HCPCS: 84443

== ENCOUNTER → 2023-10-28 | Outpatient (CLI) | payer MEDICARE, SELFPAY ==
[2023-10-28 21:30] LABS: AST(SGOT) 24 U/L (15-37); Alanine Aminotransfer ALT/SGPT 23 U/L (13-56); Albumin, Serum 3.8 g/dL (3.2-5.0); Alkaline Phosphatase 41 U/L (45-117); Anion Gap 3 (5-15); BUN 14 mg/dL (7-18); BUN/Creat Ratio 14.6 RATIO (10-20); Calcium,Total 9.3 mg/dL (8.5-10.1); Chloride 104 mmol/L (98-107); Cholesterol 240 mg/dL (200); Creatinine, Serum 0.96 mg/dL (0.55-1.02); EST Glomerular Filtration Rate 61 mL/min (>60); Est Glom Filt Rate - Afr Amer 73 mL/min (>60); Globulin 3.7 g/dL (2.2-4.2); Glucose 132 mg/dL (74-106); High Density Lipoprotein 67 mg/dL; Potassium 4.6 mmol/L (3.5-5.1); Protein, Total 7.5 g/dL (6.4-8.2); Sodium Level 137 mmol/L (136-145); Triglycerides 113 mg/dL; Very Low Density Lipoprotein 23 mg/dL (5-40)
== END | disposition home or self-care (01) ==
PROVIDERS: Referring Provider Nurse Practitioner; Visit Provider Nurse Practitioner
DX: M06.9 Rheumatoid arthritis, unspecified (principal); E03.9 Hypothyroidism, unspecified; E78.00 Pure hypercholesterolemia, unspecified
CPT/HCPCS: 80053; 80061; 84443

== ENCOUNTER → 2024-01-27 | Outpatient (CLI) | payer MEDICARE, SELFPAY | END | disposition home or self-care (01) | PROVIDERS: Referring Provider Nurse Practitioner; Visit Provider Nurse Practitioner | DX: E03.9 Hypothyroidism, unspecified (principal) | CPT/HCPCS: 84443 ==

== ENCOUNTER → 2025-02-01 | Outpatient (CLI) | payer MEDICARE, SELFPAY ==
[2025-02-01 22:37] LABS: Hematocrit 33.8 % (37-47); Hemoglobin 11.3 g/dL (12.0-15.0); Immature Granulocytes Count 0.020 X10^3/uL (0.0-0.0); Mean Corp Hgb Conc 33.4 g/dL (32-36); Mean Corpuscular Volume 102.1 fL (81-99); Mean Platelet Vol. 10.4 fl (6.2-12.0); NRBC Flagged by Analyzer 0 % (0-5); Platelet Count 325 K/mm3 (150-450); RBC Distribution Width CV 14.5 % (11.6-14.6); RBC Distribution Width SD 53.0 fl (35.1-43.9); Red Blood Count 3.31 M/mm3 (4.2-5.4); White Blood Count 5.6 K/mm3 (4.4-11.0)
[2025-02-01 22:44] LABS: AST(SGOT) 32 U/L (<=31); Alanine Aminotransfer ALT/SGPT 21 U/L (<=34); Albumin, Serum 4.2 g/dL (3.4-4.8); Alkaline Phosphatase 34 U/L (35-104); Anion Gap 9 (5-15); BUN 18 mg/dL (4-19); BUN/Creat Ratio 18.6 RATIO (10-20); Calcium,Total 9.4 mg/dL (7.6-11.0); Carbon Dioxide 28.0 mmol/L (21.0-32.0); Chloride 101 mmol/L (98-108); Cholesterol 248 mg/dL (<=200); Globulin 2.9 g/dL (2.2-4.2); Glucose 90 mg/dL (70-99); Low Density Lipoprotein Calc. 155 mg/dL; Potassium 4.3 mmol/L (3.3-5.1); Triglycerides 96 mg/dL; Very Low Density Lipoprotein 19 mg/dL (5-40); cholesterol:hdl ratio screen 3.34
== END | disposition home or self-care (01) ==
PROVIDERS: Referring Provider Nurse Practitioner; Visit Provider Nurse Practitioner
DX: E03.9 Hypothyroidism, unspecified (principal); M06.9 Rheumatoid arthritis, unspecified; E78.5 Hyperlipidemia, unspecified; M19.90 Unspecified osteoarthritis, unspecified site
CPT/HCPCS: 80053; 80061; 84443; 85025